=== PATIENT | female | born 1965 | race Caucasian/White ===

== ENCOUNTER 2019-12-31 15:42 | Inpatient (IN) | payer OTHER ==
[~2019-12-31] VITALS: Ht 170.2 cm; Wt 119.7 kg
--- NOTE | 2019-12-31 16:04 | Emergency Room Report ---
History of Present Illness General Chief Complaint: Dyspnea/Respdistress Source: Patient Present Illness HPI Is a 54-year-old female presents after increased difficulty with breathing. Acute onset of symptoms. Patient had previously been healthy. She states she ate a chicken sandwich immediately prior to onset of symptoms. Denies any choking. Had prior history of cigarette smoking but is not currently a smoker. Denies any prior history of lung or cardiac disease. Denies any skin rash or itching. 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: No Patient History Past Medical History: see triage record Now: No Reviewed Nursing Documentation: PMH: Agreed; PSxH: Agreed Review of Systems All Other Systems: negative except mentioned in HPI Physical Exam Vital Signs Date Time Temp Pulse Resp B/P (MAP) Pulse Ox O2 Delivery O2 Flow Rate FiO2 12/31/19 15:49 98.8 114 19 110/69 (83) 75 Room Air Sp02 EP Interpretation: reviewed, normal General Appearance: normal inspection, alert, GCS 15, Chronically Ill Head: atraumatic ENT: normal ENT inspection, hearing grossly normal, normal voice Neck: normal inspection, full range of motion, supple, no bony tend Respiratory: normal inspection, lungs clear, normal breath sounds, no respiratory distress, no retraction, no wheezing Cardiovascular #1: regular rate, rhythm, no edema Gastrointestinal: normal inspection, normal bowel sounds, non tender, soft, no guarding, no hernia Genitourinary: no CVA tenderness Musculoskeletal: normal inspection, back normal, normal range of motion Neurologic: alert, responsive, speech normal, normal inspection Psychiatric: normal inspection, judgement/insight normal, mood/affect normal Medical Decision Making Diagnostic Impression: Primary Impression: Pneumonia Additional Impression: Suspected 2019 novel coronavirus infection ER Course Patient presented for shortness of breath. Differential diagnosis include was not low not limited to allergic reaction, aspiration pneumonia, coronavirus infection, Pulmonary embolism. Patient was noted to be initially hypoxic and was started on supplemental oxygen. Patient did not have any evidence of skin rash consistent with an allergic reaction. There is no stridor noted. X-ray imaging of the chest read by radiology showed bilateral patchy diffuse infiltrates consistent with possible pneumonia. Given patient's onset of symptoms are some concern for possible aspiration. Patient did not have any persistent cough. 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 Patient was given dexamethasone as well as IV Benadryl with some improvement in oxygenation. Patient was also started on IV antibiotics due to possible pneumonia. Dr. Chan was contacted for inpatient management due to need for inpatient monitoring and treatment. Labs Test 12/31/19 16:11 12/31/19 16:30 12/31/19 17:25 12/31/19 18:26 White Blood Count 11.6 K/UL (4.8-10.8) Red Blood Count 4.38 M/UL (4.20-5.40) Hemoglobin 13.4 G/DL (12.0-16.0) Hematocrit 41.3 % (37.0-47.0) Mean Corpuscular Volume 94 FL (80-99) Mean Corpuscular Hemoglobin 30.6 PG (27.0-31.0) Mean Corpuscular Hemoglobin Concent 32.4 G/DL (32.0-36.0) Red Cell Distribution Width 13.5 % (11.6-14.8) Platelet Count 239 K/UL (150-450) Mean Platelet Volume 8.2 FL (6.5-10.1) Neutrophils (%) (Auto) 73.9 % (45.0-75.0) Lymphocytes (%) (Auto) 20.5 % (20.0-45.0) Monocytes (%) (Auto) 4.5 % (1.0-10.0) Eosinophils (%) (Auto) 0.4 % (0.0-3.0) Basophils (%) (Auto) 0.7 % (0.0-2.0) Activated Partial Thromboplast Time 25 SEC (23-33) Sodium Level 141 MMOL/L (136-145) Potassium Level 4.2 MMOL/L (3.5-5.1) Chloride Level 104 MMOL/L (98-107) Carbon Dioxide Level 25 MMOL/L (21-32) Anion Gap 12 mmol/L (5-15) Blood Urea Nitrogen 25 mg/dL (7-18) Creatinine 1.4 MG/DL (0.55-1.30) Estimat Glomerular Filtration Rate 39.3 mL/min (>60) Glucose Level 153 MG/DL (74-106) Calcium Level 9.6 MG/DL (8.5-10.1) Phosphorus Level 4.2 MG/DL (2.5-4.9) Magnesium Level 2.0 MG/DL (1.8-2.4) Total Bilirubin 0.4 MG/DL (0.2-1.0) Aspartate Amino Transf (AST/SGOT) 27 U/L (15-37) Alanine Aminotransferase (ALT/SGPT) 50 U/L (12-78) Alkaline Phosphatase 75 U/L (46-116) Total Creatine Kinase 211 U/L (26-308) Pro-B-Type Natriuretic Peptide 87 pg/mL (0-125) Total Protein 8.1 G/DL (6.4-8.2) Albumin 4.1 G/DL (3.4-5.0) Globulin 4.0 g/dL Albumin/Globulin Ratio 1.0 (1.0-2.7) Lactic Acid Level 1.30 mmol/L (0.4-2.0) Troponin I 0.000 ng/mL (0.000-0.056) Urine Color Pale yellow Urine Appearance Clear Urine pH 5 (4.5-8.0) Urine Specific [place] 1.020 (1.005-1.035) Urine Protein Negative (NEGATIVE) Urine Glucose (UA) Negative (NEGATIVE) Urine Ketones Negative (NEGATIVE) Urine Blood Negative (NEGATIVE) Urine Nitrite Negative (NEGATIVE) Urine Bilirubin Negative (NEGATIVE) Urine Urobilinogen Normal MG/DL (0.0-1.0) Urine Leukocyte Esterase Negative (NEGATIVE) EKG Diagnostic Results Rate: tachycardiac Rhythm: NSR - 109 ST Segments: other - qtc 469 Last Vital Signs Date Time Temp Pulse Resp B/P (MAP) Pulse Ox O2 Delivery O2 Flow Rate FiO2 12/31/19 15:49 98.8 114 19 110/69 (83) 75 Room Air Status: improved Disposition: ADMITTED INPATIENT Condition: Stable Ron Reza MD Dec 31, 2019 16:04
[2019-12-31] MEDS ORDERED: DiphenhydrAMINE 50mg/ml Inj IVP ONE (16:15)
[2019-12-31 16:30] VITALS: BP 117/71
[2019-12-31 16:48] LABS: ANION GAP 12 mmol/L (5-15); BLOOD UREA NITROGEN 25 mg/dL (7-18); CALCIUM 9.6 MG/DL (8.5-10.1); CARBON DIOXIDE 25 MMOL/L (21-32); CHLORIDE 104 MMOL/L (98-107); CREATININE 1.4 MG/DL (0.55-1.30); POTASSIUM 4.2 MMOL/L (3.5-5.1); SODIUM 141 MMOL/L (136-145)
[2019-12-31 16:55] LABS: BASOPHILS % (AUTO) 0.7 % (0.0-2.0); EOSINOPHILS % (AUTO) 0.4 % (0.0-3.0); HEMATOCRIT 41.3 % (37.0-47.0); HEMOGLOBIN 13.4 G/DL (12.0-16.0); LYMPHOCYTES % (AUTO) 20.5 % (20.0-45.0); MEAN CORPUSCULAR VOLUME 94 FL (80-99); MONOCYTES % (AUTO) 4.5 % (1.0-10.0); NEUTROPHILS % (AUTO) 73.9 % (45.0-75.0); PLATELET COUNT 239 K/UL (150-450); RED BLOOD COUNT 4.38 M/UL (4.20-5.40); RED CELL DISTRIBUTION WIDTH 13.5 % (11.6-14.8); WHITE BLOOD COUNT 11.6 K/UL (4.8-10.8)
[2019-12-31 17:03] LABS: ALANINE AMINOTRANSFERASE 50 U/L (12-78); ALBUMIN 4.1 G/DL (3.4-5.0); ALKALINE PHOSPHATASE 75 U/L (46-116); ASPARTATE AMINO TRANSFERASE 27 U/L (15-37); BILIRUBIN,TOTAL 0.4 MG/DL (0.2-1.0); CREATINE KINASE 211 U/L (26-308); PHOSPHORUS 4.2 MG/DL (2.5-4.9)
--- NOTE | 2019-12-31 17:30 | Diagnostic Imaging Report ---
Indication: Cough Technique: XRAY Chest 1v Comparison: None Findings: Heart size and mediastinal contours are within normal limits for AP technique. There are hazy bibasilar airspace opacities most concerning for multifocal pneumonia given history of cough. No pleural effusion or pneumothorax. There are degenerative changes of the spine. No acute osseous abnormality. Impression: Hazy bibasilar airspace opacities. Possibility of multifocal pneumonia (including atypical/viral pneumonia) not excluded given history of cough. Correlation with clinical findings and follow-up recommended.
[2019-12-31] MEDS ORDERED: cefTRIAXone 1 GM in NS 55 ML IVPB ONE (18:30)
[2019-12-31 19:00] VITALS: BP 111/75
--- NOTE | 2019-12-31 19:19 | Consultation ---
Consult Note Consult Note I am asked to evaluate the patient at the request of for elevated serum creatinine. Patient seen in emergency room. Room #7. Discussed with RN. Rapid COVID test pending. UA pending. This a 54-year-old female presents after increased difficulty with breathing. Acute onset of symptoms. Patient had previously been healthy. She states she ate a chicken sandwich immediately prior to onset of symptoms. Denies any choking. Had prior history of cigarette smoking but is not currently a smoker. Denies any prior history of lung or cardiac disease. Denies any skin rash or itching. Patient is a employee [employer]. 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 HEAD AND NECK: Atraumatic and normocephalic. CHEST: Diffuse bronchial breathing sounds. HEART: S1 and S2. Regular rate and rhythm. ABDOMEN: Soft. No organomegaly. MUSCULOSKELETAL: No gross lateralized motor deficit. NEUROLOGIC: The patient is awake, alert, and oriented x3. LABORATORY DATA: Labs dated 12/31/2019 shows WBC of 11.6, hemoglobin of 13.4, glucose 153, creatinine 1.4. IMAGING: Chest x-ray dated 12/31/2019 positive for opacities in both lungs. Labs reviewed serum creatinine 1.4 Patient interviewed and examined . Assessment/Plan Renal impression: Elevated serum creatinine to 1.4 most likely dehydration Possible Pneumonia / Sepsis Hydrate Monitor renal parameters Antibiotics, Continue per ID Monitor inflammatory markers Austin Perry MD Dec 31, 2019 19:19
[2019-12-31 19:27] LABS: APPEARANCE,URINE CLEAR; BILIRUBIN, URINE NEGATIVE (NEGATIVE); COLOR,URINE PALE YELLOW; GLUCOSE, URINE (UA) NEGATIVE (NEGATIVE); KETONES,URINE NEGATIVE (NEGATIVE); LEUKOCYTE ESTERASE ,URINE NEGATIVE (NEGATIVE); NITRITE,URINE NEGATIVE (NEGATIVE); PH,URINE 5 (4.5-8.0); PROTEIN,URINE NEGATIVE (NEGATIVE); UROBILINOGEN,URINE NORMAL MG/DL (0.0-1.0)
[2019-12-31] MEDS ORDERED: ALBUTEROL2.5 MG/3 M INH (20:37)
--- NOTE | 2019-12-31 22:42 | Cardiology Progress Note ---
Assessment/Plan Assessment/Plan The patient is seen and examined, full consult note is dictated. Objective Last 24 Hour Vital Signs Date Time Temp Pulse Resp B/P (MAP) Pulse Ox O2 Delivery O2 Flow Rate FiO2 12/31/19 21:00 98.8 98 16 118/78 99 Room Air 4.0 99 12/31/19 19:00 98.8 99 18 111/75 99 Room Air 12/31/19 16:30 101 16 Room Air 99 12/31/19 16:30 98.8 101 16 117/71 100 Nasal Cannula 4.0 12/31/19 15:49 98.8 114 19 110/69 (83) 75 Room Air Laboratory Tests Test 12/31/19 16:11 12/31/19 16:30 12/31/19 17:25 12/31/19 18:26 White Blood Count 11.6 K/UL (4.8-10.8) H Red Blood Count 4.38 M/UL (4.20-5.40) Hemoglobin 13.4 G/DL (12.0-16.0) Hematocrit 41.3 % (37.0-47.0) Mean Corpuscular Volume 94 FL (80-99) Mean Corpuscular Hemoglobin 30.6 PG (27.0-31.0) Mean Corpuscular Hemoglobin Concent 32.4 G/DL (32.0-36.0) Red Cell Distribution Width 13.5 % (11.6-14.8) Platelet Count 239 K/UL (150-450) Mean Platelet Volume 8.2 FL (6.5-10.1) Neutrophils (%) (Auto) 73.9 % (45.0-75.0) Lymphocytes (%) (Auto) 20.5 % (20.0-45.0) Monocytes (%) (Auto) 4.5 % (1.0-10.0) Eosinophils (%) (Auto) 0.4 % (0.0-3.0) Basophils (%) (Auto) 0.7 % (0.0-2.0) Activated Partial Thromboplast Time 25 SEC (23-33) Sodium Level 141 MMOL/L (136-145) Potassium Level 4.2 MMOL/L (3.5-5.1) Chloride Level 104 MMOL/L (98-107) Carbon Dioxide Level 25 MMOL/L (21-32) Anion Gap 12 mmol/L (5-15) Blood Urea Nitrogen 25 mg/dL (7-18) H Creatinine 1.4 MG/DL (0.55-1.30) H Estimat Glomerular Filtration Rate 39.3 mL/min (>60) Glucose Level 153 MG/DL (74-106) H Calcium Level 9.6 MG/DL (8.5-10.1) Phosphorus Level 4.2 MG/DL (2.5-4.9) Magnesium Level 2.0 MG/DL (1.8-2.4) Total Bilirubin 0.4 MG/DL (0.2-1.0) Aspartate Amino Transf (AST/SGOT) 27 U/L (15-37) Alanine Aminotransferase (ALT/SGPT) 50 U/L (12-78) Alkaline Phosphatase 75 U/L (46-116) Total Creatine Kinase 211 U/L (26-308) Pro-B-Type Natriuretic Peptide 87 pg/mL (0-125) Total Protein 8.1 G/DL (6.4-8.2) Albumin 4.1 G/DL (3.4-5.0) Globulin 4.0 g/dL Albumin/Globulin Ratio 1.0 (1.0-2.7) Lactic Acid Level 1.30 mmol/L (0.4-2.0) Troponin I 0.000 ng/mL (0.000-0.056) Urine Color Pale yellow Urine Appearance Clear Urine pH 5 (4.5-8.0) Urine Specific [place] 1.020 (1.005-1.035) Urine Protein Negative (NEGATIVE) Urine Glucose (UA) Negative (NEGATIVE) Urine Ketones Negative (NEGATIVE) Urine Blood Negative (NEGATIVE) Urine Nitrite Negative (NEGATIVE) Urine Bilirubin Negative (NEGATIVE) Urine Urobilinogen Normal MG/DL (0.0-1.0) Urine Leukocyte Esterase Negative (NEGATIVE) Genaro Barrett MD Dec 31, 2019 22:42
[2020-01-01] VITALS: BP 148/86
[2020-01-01] MEDS ORDERED: Albuterol 90mcg Inhaler 8gm INH PRN
[2020-01-01] MEDS ORDERED: Azithromycin 500 MG in D5W 275 ML IV SCH (02:00)
[2020-01-01] MEDS: Zolpidem 5mg tab ORAL PRN ×2 (02:39→21:39)
[2020-01-01 04:00] VITALS: BP 139/82
--- NOTE | 2020-01-01 06:30 | Consultation ---
DATE OF CONSULTATION: 12/31/2019 CARDIOLOGY CONSULTATION CONSULTING PHYSICIAN: Genaro Barrett MD. REFERRING PHYSICIAN: Radha Chan MD. REASON FOR CONSULTATION: Management of dyspnea. HISTORY OF PRESENT ILLNESS: Patient is a very unfortunate 54-year-old lady who presents to the hospital with shortness of breath, which happened after she ate chicken sandwich. The patient stayed in the usual state of health until this happened. The patient denies any complaints of rash or hives or wheezing. At the time of arrival to the hospital, she denied any chest pain or shortness of breath. Initial vitals revealed blood pressure of 110/69 with a heart rate of 114. She was afebrile. She claims that she had not been contacted with a patient with COVID-19 symptoms. PAST MEDICAL HISTORY: None. PAST SURGICAL HISTORY: None. ALLERGIES: No known drug allergies. LIST OF MEDICATION: Albuterol inhaler every 4 hours p.r.n. shortness of breath. REVIEW OF SYSTEMS: HEENT: Denies any headache, diplopia, or blurred vision. CONSTITUTIONAL: Denies any fever, chills, night sweats, or weight loss. CARDIOVASCULAR: Denies any chest pain. Positive shortness of breath. Denies any PND, orthopnea, or leg swelling. PULMONARY: Positive for shortness of breath, but no wheezing or hemoptysis. GASTROINTESTINAL: Denies any nausea, vomiting, diarrhea, constipation, abdominal pain, or GI bleed. GENITOURINARY: Denies any hematuria, dysuria, or incontinence. NEUROLOGIC: Denies any motor dysfunction, sensory deficit, or altered speech. HABITS: Denies any tobacco, alcohol, or illicit drug use. FAMILY HISTORY: No premature coronary artery disease in first-degree relatives. PHYSICAL EXAMINATION: VITAL SIGNS: Blood pressure is 110/69, pulse of 114, respirations 19, temperature 98.8 degrees Fahrenheit, O2 saturation 75% on room air. GENERAL: The patient is a very unfortunate 54-year-old lady who appeared to be chronically ill, in no apparent respiratory distress. HEENT: Atraumatic and normocephalic. Anicteric. Pupils are equal, round, and reactive to light and accommodation. Extraocular muscles intact. ABDOMEN: Soft, nontender, nondistended. No hepatosplenomegaly. Positive bowel sounds. EXTREMITIES: No evidence of edema, clubbing, or cyanosis. LABORATORY FINDINGS: WBC was 11.6, hemoglobin 13.4, hematocrit of 41.3, platelet count of 239. Sodium was 141, potassium is 4.2, chloride 104, bicarbonate 25, BUN of 25, creatinine 1.4, glucose is 9.6, magnesium 2.0. ProBNP is 87. Troponin I is 0. Lactic acid is 1.3. Chest x-ray showed hazy bibasilar airspace opacities, possibility of multifocal pneumonia. ASSESSMENT AND PLAN: Patient is a very unfortunate 54-year-old female, seen in Cardiology consultation. 1. Shortness of breath. This is most likely due to multilobar pneumonia. Normal brain natriuretic peptide essentially ruled out acute congestive heart failure. The patient requires to be on IV fluid. IV antibiotic at the recommendation of Infectious Disease. 2. Acute kidney injury. Fluid challenge is recommended. 3. Leukocytosis. I would like to thank, Dr. Chan, for allowing me to participate in the care of this patient. Genaro Barrett M.D. DR: JOSUÉ JOB#: [id number] CC:
[2020-01-01 07:23] LABS: HEMOGLOBIN 12.7 G/DL (12.0-16.0); MEAN CORPUSCULAR VOLUME 96 FL (80-99); PLATELET COUNT 183 K/UL (150-450); RED BLOOD COUNT 4.16 M/UL (4.20-5.40); RED CELL DISTRIBUTION WIDTH 13.1 % (11.6-14.8); WHITE BLOOD COUNT 21.9 K/UL (4.8-10.8)
[2020-01-01 08:00] VITALS: BP 135/70
[2020-01-01 08:39] LABS: ALANINE AMINOTRANSFERASE 42 U/L (12-78); ALBUMIN 3.5 G/DL (3.4-5.0); ALBUMIN/GLOBULIN RATIO 0.9 (1.0-2.7); ALKALINE PHOSPHATASE 63 U/L (46-116); ANION GAP 9 mmol/L (5-15); ASPARTATE AMINO TRANSFERASE 18 U/L (15-37); BILIRUBIN,TOTAL 0.6 MG/DL (0.2-1.0); BLOOD UREA NITROGEN 16 mg/dL (7-18); CARBON DIOXIDE 26 MMOL/L (21-32); CHLORIDE 103 MMOL/L (98-107); CHOLESTEROL 158 MG/DL (< 200); HDL CHOLESTEROL 61 MG/DL (40-60); POTASSIUM 4.1 MMOL/L (3.5-5.1); SODIUM 138 MMOL/L (136-145); TRIGLYCERIDES 43 MG/DL (30-150)
--- NOTE | 2020-01-01 08:47 | History & Physical ---
History and Physical History & Physicial seen and examined. Dictation completed on 840 hours Radha Chan MD Jan 01, 2020 08:47
--- NOTE | 2020-01-01 08:48 | General Progress Note ---
Assessment/Plan Assessment/Plan: Full Dictatino in progress 1- Sepsis 2- PNA [id number] are consulted Subjective Allergies: Coded Allergies: No Known Allergies (Unverified , 12/31/19) Objective Last 24 Hour Vital Signs Date Time Temp Pulse Resp B/P (MAP) Pulse Ox O2 Delivery O2 Flow Rate FiO2 01/01/20 04:00 87 01/01/20 04:00 Nasal Cannula 4.0 01/01/20 04:00 98.7 89 20 139/82 (101) 97 01/01/20 01:28 94 01/01/20 00:00 Nasal Cannula 4.0 01/01/20 00:00 99.0 103 20 148/86 (106) 96 01/01/20 00:00 94 12/31/19 21:31 Nasal Cannula 4.0 12/31/19 21:00 98.8 98 16 118/78 99 Room Air 4.0 99 12/31/19 19:00 98.8 99 18 111/75 99 Room Air 12/31/19 16:30 101 16 Room Air 99 12/31/19 16:30 98.8 101 16 117/71 100 Nasal Cannula 4.0 12/31/19 15:49 98.8 114 19 110/69 (83) 75 Room Air Intake and Output 12/31/19 01/01/20 19:00 07:00 Intake Total 0 ml 755 ml Balance 0 ml 755 ml Intake Oral 0 ml 480 ml IV Total 275 ml # Voids 2 # Bowel Movements 4 Laboratory Tests 12/31/19 16:11: White Blood Count 11.6H, Red Blood Count 4.38, Hemoglobin 13.4, Hematocrit 41.3 , Mean Corpuscular Volume 94, Mean Corpuscular Hemoglobin 30.6, Mean Corpuscular Hemoglobin Concent 32.4, Red Cell Distribution Width 13.5, Platelet Count 239, Mean Platelet Volume 8.2, Neutrophils (%) (Auto) 73.9, Lymphocytes (% ) (Auto) 20.5, Monocytes (%) (Auto) 4.5, Eosinophils (%) (Auto) 0.4, Basophils ( %) (Auto) 0.7, Activated Partial Thromboplast Time 25, Sodium Level 141, Potassium Level 4.2, Chloride Level 104, Carbon Dioxide Level 25, Anion Gap 12, Blood Urea Nitrogen 25H, Creatinine 1.4H, Estimat Glomerular Filtration Rate 39.3, Glucose Level 153H, Calcium Level 9.6, Phosphorus Level 4.2, Magnesium Level 2.0, Total Bilirubin 0.4, Aspartate Amino Transf (AST/SGOT) 27, Alanine Aminotransferase (ALT/SGPT) 50, Alkaline Phosphatase 75, Total Creatine Kinase 211, Pro-B-Type Natriuretic Peptide 87, Total Protein 8.1, Albumin 4.1, Globulin 4.0, Albumin/Globulin Ratio 1.0 12/31/19 16:30: Lactic Acid Level 1.30 12/31/19 17:00: Fibrinogen 385, D-Dimer 1.14H 12/31/19 17:25: Troponin I 0.000 12/31/19 18:26: Urine Color Pale yellow, Urine Appearance Clear, Urine pH 5, Urine Specific [place] 1.020, Urine Protein Negative, Urine Glucose (UA) Negative, Urine Ketones Negative, Urine Blood Negative, Urine Nitrite Negative, Urine Bilirubin Negative, Urine Urobilinogen Normal, Urine Leukocyte Esterase Negative 01/01/20 06:00: White Blood Count 21.9#H, Red Blood Count 4.16L, Hemoglobin 12.7, Hematocrit 40.0, Mean Corpuscular Volume 96, Mean Corpuscular Hemoglobin 30.6, Mean Corpuscular Hemoglobin Concent 31.9L, Red Cell Distribution Width 13.1, Platelet Count 183, Mean Platelet Volume 8.2, Neutrophils (%) (Auto) , Lymphocytes (%) (Auto) , Monocytes (%) (Auto) , Eosinophils (%) (Auto) , Basophils (%) (Auto) , Neutrophils % (Manual) [Pending], Lymphocytes % (Manual) [Pending], Platelet Estimate [Pending], Platelet Morphology [Pending], Sodium Level [Pending], Potassium Level [Pending], Chloride Level [Pending], Carbon Dioxide Level [Pending], Blood Urea Nitrogen [Pending], Creatinine [Pending], Estimat Glomerular Filtration Rate [Pending], Glucose Level [Pending], Uric Acid [Pending], Calcium Level [Pending], Phosphorus Level [Pending], Magnesium Level [Pending], Total Bilirubin [Pending], Aspartate Amino Transf (AST/SGOT) [ Pending], Alanine Aminotransferase (ALT/SGPT) [Pending], Alkaline Phosphatase [ Pending], C-Reactive Protein, Quantitative [Pending], Pro-B-Type Natriuretic Peptide [Pending], Total Protein [Pending], Albumin [Pending], Globulin [Pending ], Triglycerides Level [Pending], Cholesterol Level [Pending], LDL Cholesterol [ Pending], HDL Cholesterol [Pending], Cholesterol/HDL Ratio [Pending], Thyroid Stimulating Hormone (TSH) [Pending] Height (Feet): 5 Height (Inches): 7.00 Weight (Pounds): 263 Radha Chan MD Jan 01, 2020 08:48
[2020-01-01] MEDS: Enoxaparin 40mg Inj SUBQ SCH ×2 (08:49→20:22)
[2020-01-01] MEDS ORDERED: D5W 275ml ONE (09:23)
[2020-01-01] MEDS ORDERED: Tubing IV Secondary IV ONE (09:23)
[2020-01-01] MEDS ORDERED: NS 275ml ONE (09:23)
[2020-01-01] MEDS ORDERED: Vancomycin 2gm/D5W 550ml IVPB SCH ×4 (11:00→23:00)
[2020-01-01 12:00] VITALS: BP 140/79
--- NOTE | 2020-01-01 12:22 | Nephrology Progress Note ---
Assessment/Plan Problem List: (1) CANDICE (acute kidney injury) (2) Pneumonia Plan Serum creatinine is now normalized with hydration. White blood cell counts vipul, continue antibiotics per ID. Avoid nephrotoxic's, monitor renal parameters and electrolytes. Subjective ROS Limited/Unobtainable: No Constitutional: Reports: malaise Objective Objective Last 24 Hour Vital Signs Date Time Temp Pulse Resp B/P (MAP) Pulse Ox O2 Delivery O2 Flow Rate FiO2 01/01/20 09:00 Room Air 01/01/20 08:00 103 01/01/20 08:00 98.1 91 20 135/70 (91) 99 01/01/20 04:00 87 01/01/20 04:00 Nasal Cannula 4.0 01/01/20 04:00 98.7 89 20 139/82 (101) 97 01/01/20 01:28 94 01/01/20 00:00 Nasal Cannula 4.0 01/01/20 00:00 99.0 103 20 148/86 (106) 96 01/01/20 00:00 94 12/31/19 21:31 Nasal Cannula 4.0 12/31/19 21:00 98.8 98 16 118/78 99 Room Air 4.0 99 12/31/19 19:00 98.8 99 18 111/75 99 Room Air 12/31/19 16:30 101 16 Room Air 99 12/31/19 16:30 98.8 101 16 117/71 100 Nasal Cannula 4.0 12/31/19 15:49 98.8 114 19 110/69 (83) 75 Room Air Intake and Output 12/31/19 01/01/20 19:00 07:00 Intake Total 0 ml 755 ml Balance 0 ml 755 ml Intake Oral 0 ml 480 ml IV Total 275 ml # Voids 2 # Bowel Movements 4 Current Medications Medications (Trade) Dose Ordered Sig/Jorge Alberto Route PRN Reason Start Time Stop Time Status Last Admin Dose Admin Acetaminophen (Tylenol) 650 mg Q4H PRN ORAL Mild Pain (Pain Scale 1-3) 01/01/20 00:00 01/31/20 00:00 Acetaminophen/ Hydrocodone Bitart (Gordon 5/325) 1 tab Q4H PRN ORAL Moderate Pain (Pain Scale 4-6) 01/01/20 00:00 01/08/20 00:00 Albuterol Sulfate (Proventil MDI) 2 puff Q4H PRN INH Shortness of Breath 01/01/20 00:00 03/31/20 00:00 Azithromycin 500 mg/Dextrose 275 ml @ 275 mls/hr Q24HRS IV 01/01/20 02:00 01/07/20 02:59 01/01/20 02:06 Ceftriaxone Sodium 2 gm/ Dextrose 55 ml @ 110 mls/hr Q24H IVPB 01/01/20 18:00 01/08/20 17:59 Enoxaparin Sodium (Lovenox) 40 mg EVERY 12 HOURS SUBQ 01/01/20 09:00 03/31/20 08:59 01/01/20 08:49 Pantoprazole (Protonix) 40 mg DAILY ORAL 01/01/20 09:00 01/31/20 08:59 01/01/20 08:49 Zolpidem Tartrate (Ambien) 5 mg HSPRN PRN ORAL Insomnia 01/01/20 00:00 01/08/20 00:00 01/01/20 02:39 Laboratory Tests 12/31/19 16:11: White Blood Count 11.6H, Red Blood Count 4.38, Hemoglobin 13.4, Hematocrit 41.3 , Mean Corpuscular Volume 94, Mean Corpuscular Hemoglobin 30.6, Mean Corpuscular Hemoglobin Concent 32.4, Red Cell Distribution Width 13.5, Platelet Count 239, Mean Platelet Volume 8.2, Neutrophils (%) (Auto) 73.9, Lymphocytes (% ) (Auto) 20.5, Monocytes (%) (Auto) 4.5, Eosinophils (%) (Auto) 0.4, Basophils ( %) (Auto) 0.7, Activated Partial Thromboplast Time 25, Sodium Level 141, Potassium Level 4.2, Chloride Level 104, Carbon Dioxide Level 25, Anion Gap 12, Blood Urea Nitrogen 25H, Creatinine 1.4H, Estimat Glomerular Filtration Rate 39.3, Glucose Level 153H, Calcium Level 9.6, Phosphorus Level 4.2, Magnesium Level 2.0, Total Bilirubin 0.4, Aspartate Amino Transf (AST/SGOT) 27, Alanine Aminotransferase (ALT/SGPT) 50, Alkaline Phosphatase 75, Total Creatine Kinase 211, Pro-B-Type Natriuretic Peptide 87, Total Protein 8.1, Albumin 4.1, Globulin 4.0, Albumin/Globulin Ratio 1.0 12/31/19 16:30: Lactic Acid Level 1.30 12/31/19 17:00: Fibrinogen 385, D-Dimer 1.14H 12/31/19 17:25: Troponin I 0.000 12/31/19 18:26: Urine Color Pale yellow, Urine Appearance Clear, Urine pH 5, Urine Specific [place] 1.020, Urine Protein Negative, Urine Glucose (UA) Negative, Urine Ketones Negative, Urine Blood Negative, Urine Nitrite Negative, Urine Bilirubin Negative, Urine Urobilinogen Normal, Urine Leukocyte Esterase Negative 01/01/20 06:00: White Blood Count 21.9#H, Red Blood Count 4.16L, Hemoglobin 12.7, Hematocrit 40.0, Mean Corpuscular Volume 96, Mean Corpuscular Hemoglobin 30.6, Mean Corpuscular Hemoglobin Concent 31.9L, Red Cell Distribution Width 13.1, Platelet Count 183, Mean Platelet Volume 8.2, Neutrophils (%) (Auto) , Lymphocytes (%) (Auto) , Monocytes (%) (Auto) , Eosinophils (%) (Auto) , Basophils (%) (Auto) , Neutrophils % (Manual) [Pending], Lymphocytes % (Manual) [Pending], Platelet Estimate [Pending], Platelet Morphology [Pending], Sodium Level 138, Potassium Level 4.1, Chloride Level 103, Carbon Dioxide Level 26, Anion Gap 9, Blood Urea Nitrogen 16, Creatinine 1.0, Estimat Glomerular Filtration Rate 58.0, Glucose Level 126H, Uric Acid 7.1, Calcium Level 9.0, Phosphorus Level 3.0, Magnesium Level 2.2, Total Bilirubin 0.6, Aspartate Amino Transf (AST/SGOT) 18, Alanine Aminotransferase (ALT/SGPT) 42, Alkaline Phosphatase 63, C-Reactive Protein, Quantitative 10.2H, Pro-B-Type Natriuretic Peptide 151H, Total Protein 7.3, Albumin 3.5, Globulin 3.8, Albumin/Globulin Ratio 0.9L, Triglycerides Level 43, Cholesterol Level 158, LDL Cholesterol 85, HDL Cholesterol 61H, Cholesterol/HDL Ratio 2.6L, Thyroid Stimulating Hormone ( TSH) 0.306L Height (Feet): 5 Height (Inches): 7.00 Weight (Pounds): 263 Cardiovascular: tachycardia Respiratory/Chest: decreased breath sounds Abdomen: soft Fouladian,Austin MD Jan 01, 2020 12:22
--- NOTE | 2020-01-01 13:00 | History and Physical Report ---
DATE OF ADMISSION: 12/31/2019 SOURCE OF INFORMATION: Patient and EMR. HISTORY OF PRESENT ILLNESS: The patient is a 54-year-old female who presented with shortness of breath for the last three to five days. The patient reported that this started all of a sudden. Denies any nausea, vomitus, diarrhea, or constipation. Denies any fever or chills. PAST MEDICAL AND SURGICAL HISTORY: Asthma, otherwise unremarkable. MEDICATIONS: Current hospital medications including, but not limited to breathing treatment, ceftriaxone, Lovenox. ALLERGIES: NKDA. FAMILY HISTORY: Reviewed and noncontributory. SOCIAL HISTORY: The patient lives at home. The patient denies history of illicit drug abuse, smoking, or alcohol abuse. The patient has children and grandchildren. REVIEW OF SYSTEMS: All 12 elements of review of systems reviewed. PHYSICAL EXAMINATION: VITAL SIGNS: Blood pressure 110/80, temperature 98.2, pulse oximetry 98% on 2 liters of oxygen, pulse rate 100, and respiratory rate 25. HEAD AND NECK: Atraumatic and normocephalic. CHEST: Diffuse bronchial breathing sounds. HEART: S1 and S2. Regular rate and rhythm. ABDOMEN: Soft. No organomegaly. MUSCULOSKELETAL: No gross lateralized motor deficit. NEUROLOGIC: The patient is awake, alert, and oriented x3. LABORATORY DATA: Labs dated 12/31/2019 shows WBC of 11.6, hemoglobin of 13.4, glucose 153, creatinine 1.4. IMAGING: Chest x-ray dated 12/31/2019 positive for opacities in both lungs. ASSESSMENT: 1. Sepsis secondary to community-acquired pneumonia. 2. Asthma/COPD. 3. Renal failure, age indeterminate. 4. Abnormal blood sugar. 5. GI and DVT prophylaxes. PLAN OF CARE: We will continue and resume the empiric antibiotic treatment. Agree to admit to telemetry. Pulmonary, Cardiology and Nephrology are consulted. COMMENTS: The time of this dictation does not reflect the actual time of encounter. Radha Chan M.D. DR: RANDALL JOB#: [id number] CC:
--- NOTE | 2020-01-01 13:31 | Infectious Diseases Prog Note ---
Assessment/Plan Problems: (1) Pneumonia Assessment & Plan: with bilateral multifocal infiltration, suspect COV ID 19 infection continue current antibiotics with isolation pending COV ID 19 confirmation tests (2) Hypoxia Assessment & Plan: suspect due to the above continue oxygen supplement and supportive care , she will be candidate for Remedisvir if confirmed positive for COV ID 19 infection (3) Suspected 2019 novel coronavirus infection Assessment & Plan: we will send COV ID 19 rapid ID test now, keep patient in enhance droplet isolation (4) CANDICE (acute kidney injury) Assessment & Plan: suspect dehydration continue IV fluid avoid nephrotoxic's Subjective Allergies: Coded Allergies: No Known Allergies (Unverified , 12/31/19) Objective Vital Signs Last 24 Hour Vital Signs Date Time Temp Pulse Resp B/P (MAP) Pulse Ox O2 Delivery O2 Flow Rate FiO2 01/01/20 13:13 92 01/01/20 12:00 98.4 92 20 140/79 (99) 99 01/01/20 09:00 Room Air 01/01/20 08:00 103 01/01/20 08:00 98.1 91 20 135/70 (91) 99 01/01/20 04:00 87 01/01/20 04:00 Nasal Cannula 4.0 01/01/20 04:00 98.7 89 20 139/82 (101) 97 01/01/20 01:28 94 01/01/20 00:00 Nasal Cannula 4.0 01/01/20 00:00 99.0 103 20 148/86 (106) 96 01/01/20 00:00 94 12/31/19 21:31 Nasal Cannula 4.0 12/31/19 21:00 98.8 98 16 118/78 99 Room Air 4.0 99 12/31/19 19:00 98.8 99 18 111/75 99 Room Air 12/31/19 16:30 101 16 Room Air 99 12/31/19 16:30 98.8 101 16 117/71 100 Nasal Cannula 4.0 12/31/19 15:49 98.8 114 19 110/69 (83) 75 Room Air Height (Feet): 5 Height (Inches): 7.00 Weight (Pounds): 263 Laboratory Tests Test 12/31/19 16:11 12/31/19 16:30 12/31/19 17:00 12/31/19 17:25 White Blood Count 11.6 K/UL (4.8-10.8) H Red Blood Count 4.38 M/UL (4.20-5.40) Hemoglobin 13.4 G/DL (12.0-16.0) Hematocrit 41.3 % (37.0-47.0) Mean Corpuscular Volume 94 FL (80-99) Mean Corpuscular Hemoglobin 30.6 PG (27.0-31.0) Mean Corpuscular Hemoglobin Concent 32.4 G/DL (32.0-36.0) Red Cell Distribution Width 13.5 % (11.6-14.8) Platelet Count 239 K/UL (150-450) Mean Platelet Volume 8.2 FL (6.5-10.1) Neutrophils (%) (Auto) 73.9 % (45.0-75.0) Lymphocytes (%) (Auto) 20.5 % (20.0-45.0) Monocytes (%) (Auto) 4.5 % (1.0-10.0) Eosinophils (%) (Auto) 0.4 % (0.0-3.0) Basophils (%) (Auto) 0.7 % (0.0-2.0) Activated Partial Thromboplast Time 25 SEC (23-33) Sodium Level 141 MMOL/L (136-145) Potassium Level 4.2 MMOL/L (3.5-5.1) Chloride Level 104 MMOL/L (98-107) Carbon Dioxide Level 25 MMOL/L (21-32) Anion Gap 12 mmol/L (5-15) Blood Urea Nitrogen 25 mg/dL (7-18) H Creatinine 1.4 MG/DL (0.55-1.30) H Estimat Glomerular Filtration Rate 39.3 mL/min (>60) Glucose Level 153 MG/DL (74-106) H Calcium Level 9.6 MG/DL (8.5-10.1) Phosphorus Level 4.2 MG/DL (2.5-4.9) Magnesium Level 2.0 MG/DL (1.8-2.4) Total Bilirubin 0.4 MG/DL (0.2-1.0) Aspartate Amino Transf (AST/SGOT) 27 U/L (15-37) Alanine Aminotransferase (ALT/SGPT) 50 U/L (12-78) Alkaline Phosphatase 75 U/L (46-116) Total Creatine Kinase 211 U/L (26-308) Pro-B-Type Natriuretic Peptide 87 pg/mL (0-125) Total Protein 8.1 G/DL (6.4-8.2) Albumin 4.1 G/DL (3.4-5.0) Globulin 4.0 g/dL Albumin/Globulin Ratio 1.0 (1.0-2.7) Lactic Acid Level 1.30 mmol/L (0.4-2.0) Fibrinogen 385 mg/dL (200-400) D-Dimer 1.14 mg/L FEU (0.00-0.49) H Troponin I 0.000 ng/mL (0.000-0.056) Test 12/31/19 18:26 01/01/20 06:00 Urine Color Pale yellow Urine Appearance Clear Urine pH 5 (4.5-8.0) Urine Specific [place] 1.020 (1.005-1.035) Urine Protein Negative (NEGATIVE) Urine Glucose (UA) Negative (NEGATIVE) Urine Ketones Negative (NEGATIVE) Urine Blood Negative (NEGATIVE) Urine Nitrite Negative (NEGATIVE) Urine Bilirubin Negative (NEGATIVE) Urine Urobilinogen Normal MG/DL (0.0-1.0) Urine Leukocyte Esterase Negative (NEGATIVE) White Blood Count 21.9 K/UL (4.8-10.8) #H Red Blood Count 4.16 M/UL (4.20-5.40) L Hemoglobin 12.7 G/DL (12.0-16.0) Hematocrit 40.0 % (37.0-47.0) Mean Corpuscular Volume 96 FL (80-99) Mean Corpuscular Hemoglobin 30.6 PG (27.0-31.0) Mean Corpuscular Hemoglobin Concent 31.9 G/DL (32.0-36.0) L Red Cell Distribution Width 13.1 % (11.6-14.8) Platelet Count 183 K/UL (150-450) Mean Platelet Volume 8.2 FL (6.5-10.1) Neutrophils (%) (Auto) % (45.0-75.0) Lymphocytes (%) (Auto) % (20.0-45.0) Monocytes (%) (Auto) % (1.0-10.0) Eosinophils (%) (Auto) % (0.0-3.0) Basophils (%) (Auto) % (0.0-2.0) Neutrophils % (Manual) Pending Lymphocytes % (Manual) Pending Platelet Estimate Pending Platelet Morphology Pending Sodium Level 138 MMOL/L (136-145) Potassium Level 4.1 MMOL/L (3.5-5.1) Chloride Level 103 MMOL/L (98-107) Carbon Dioxide Level 26 MMOL/L (21-32) Anion Gap 9 mmol/L (5-15) Blood Urea Nitrogen 16 mg/dL (7-18) Creatinine 1.0 MG/DL (0.55-1.30) Estimat Glomerular Filtration Rate 58.0 mL/min (>60) Glucose Level 126 MG/DL (74-106) H Uric Acid 7.1 MG/DL (2.6-7.2) Calcium Level 9.0 MG/DL (8.5-10.1) Phosphorus Level 3.0 MG/DL (2.5-4.9) Magnesium Level 2.2 MG/DL (1.8-2.4) Total Bilirubin 0.6 MG/DL (0.2-1.0) Aspartate Amino Transf (AST/SGOT) 18 U/L (15-37) Alanine Aminotransferase (ALT/SGPT) 42 U/L (12-78) Alkaline Phosphatase 63 U/L (46-116) C-Reactive Protein, Quantitative 10.2 mg/dL (0.00-0.90) H Pro-B-Type Natriuretic Peptide 151 pg/mL (0-125) H Total Protein 7.3 G/DL (6.4-8.2) Albumin 3.5 G/DL (3.4-5.0) Globulin 3.8 g/dL Albumin/Globulin Ratio 0.9 (1.0-2.7) L Triglycerides Level 43 MG/DL (30-150) Cholesterol Level 158 MG/DL (< 200) LDL Cholesterol 85 mg/dL (<100) HDL Cholesterol 61 MG/DL (40-60) H Cholesterol/HDL Ratio 2.6 (3.3-4.4) L Thyroid Stimulating Hormone (TSH) 0.306 uiU/mL (0.358-3.740) Current Medications Medications (Trade) Dose Ordered Sig/Jorge Alberto Route PRN Reason Start Time Stop Time Status Last Admin Dose Admin Acetaminophen (Tylenol) 650 mg Q4H PRN ORAL Mild Pain (Pain Scale 1-3) 01/01/20 00:00 01/31/20 00:00 Acetaminophen/ Hydrocodone Bitart (Walker 5/325) 1 tab Q4H PRN ORAL Moderate Pain (Pain Scale 4-6) 01/01/20 00:00 01/08/20 00:00 Albuterol Sulfate (Proventil MDI) 2 puff Q4H PRN INH Shortness of Breath 01/01/20 00:00 03/31/20 00:00 Azithromycin 500 mg/Dextrose 275 ml @ 275 mls/hr Q24HRS IV 01/01/20 02:00 01/07/20 02:59 01/01/20 02:06 Ceftriaxone Sodium 2 gm/ Dextrose 55 ml @ 110 mls/hr Q24H IVPB 01/01/20 18:00 01/08/20 17:59 Enoxaparin Sodium (Lovenox) 40 mg EVERY 12 HOURS SUBQ 01/01/20 09:00 03/31/20 08:59 01/01/20 08:49 Pantoprazole (Protonix) 40 mg DAILY ORAL 01/01/20 09:00 01/31/20 08:59 01/01/20 08:49 Zolpidem Tartrate (Ambien) 5 mg HSPRN PRN ORAL Insomnia 01/01/20 00:00 01/08/20 00:00 01/01/20 02:39 Carol Ann Davis M.D. Jan 01, 2020 13:31
--- NOTE | 2020-01-01 14:46 | Consultation ---
Consult Note Consult Note REASON FOR CONSULTATION: Dyspnea HISTORY OF PRESENT ILLNESS: This is a 54-year-old lady who presents to the hospital with shortness of breath, which happened after she ate a chicken sandwich. The patient stayed in the usual state of health until this happened. The patient denies any complaints of rash or hives or wheezing. At the time of arrival to the hospital, she denied any chest pain or shortness of breath. Initial vitals revealed blood pressure of 110/69 with a heart rate of 114. She was afebrile. She claims that she had not been contacted with a patient with COVID-19 symptoms. PAST MEDICAL HISTORY: None. PAST SURGICAL HISTORY: None. ALLERGIES: No known drug allergies. LIST OF MEDICATION: Albuterol inhaler every 4 hours p.r.n. shortness of breath. REVIEW OF SYSTEMS: HEENT: Denies any headache, diplopia, or blurred vision. CONSTITUTIONAL: Denies any fever, chills, night sweats, or weight loss. CARDIOVASCULAR: Denies any chest pain. Positive shortness of breath. Denies any PND, orthopnea, or leg swelling. PULMONARY: Positive for shortness of breath, but no wheezing or hemoptysis. GASTROINTESTINAL: Denies any nausea, vomiting, diarrhea, constipation, abdominal pain, or GI bleed. GENITOURINARY: Denies any hematuria, dysuria, or incontinence. NEUROLOGIC: Denies any motor dysfunction, sensory deficit, or altered speech. HABITS: Denies any tobacco, alcohol, or illicit drug use. FAMILY HISTORY: No premature coronary artery disease in first-degree relatives. PHYSICAL EXAMINATION: VITAL SIGNS: Blood pressure is 110/69, pulse of 114, respirations 19, temperature 98.8 degrees Fahrenheit, O2 saturation 75% on room air. GENERAL: No respiratory distress. HEENT: Atraumatic and normocephalic. Anicteric. Pupils are equal, round, and reactive to light and accommodation. Extraocular muscles intact. ABDOMEN: Soft, nontender, nondistended. No hepatosplenomegaly. Positive bowel sounds. EXTREMITIES: No evidence of edema, clubbing, or cyanosis. LABORATORY FINDINGS: WBC was 11.6, hemoglobin 13.4, hematocrit of 41.3, platelet count of 239. Sodium was 141, potassium is 4.2, chloride 104, bicarbonate 25, BUN of 25, creatinine 1.4, glucose is 9.6, magnesium 2.0. ProBNP is 87. Troponin I is 0. Lactic acid is 1.3. Chest x-ray showed hazy bibasilar airspace opacities. Possibility of multifocal pneumonia ( including atypical/viral pneumonia) not excluded given history of cough. ASSESSMENT AND PLAN: 1. Shortness of breath. This is most likely due to multilobar pneumonia. Normal brain natriuretic peptide essentially ruled out acute congestive heart failure. The patient requires to be on IV fluid. IV antibiotic at the recommendation of Infectious Disease. 2. Acute kidney injury. Fluid challenge is recommended. 3. Leukocytosis. Ross Shukla M.D., MD Jan 01, 2020 14:46
[2020-01-01 16:00] VITALS: BP 145/66
--- NOTE | 2020-01-01 16:00 | Cardiology Progress Note ---
Assessment/Plan Assessment/Plan 1. Shortness of breath, due to multilobar pneumonia. Normal brain natriuretic peptide essentially ruled out acute congestive heart failure. COVID-19 infection is ruled out. 2. DVT prophylaxis. 2. Acute kidney injury, resolved. Subjective Subjective Sinus rhythm at rate of 92. Objective Last 24 Hour Vital Signs Date Time Temp Pulse Resp B/P (MAP) Pulse Ox O2 Delivery O2 Flow Rate FiO2 01/01/20 13:13 92 01/01/20 12:00 98.4 92 20 140/79 (99) 99 01/01/20 09:00 Room Air 01/01/20 08:00 103 01/01/20 08:00 98.1 91 20 135/70 (91) 99 01/01/20 04:00 87 01/01/20 04:00 Nasal Cannula 4.0 01/01/20 04:00 98.7 89 20 139/82 (101) 97 01/01/20 01:28 94 01/01/20 00:00 Nasal Cannula 4.0 01/01/20 00:00 99.0 103 20 148/86 (106) 96 01/01/20 00:00 94 12/31/19 21:31 Nasal Cannula 4.0 12/31/19 21:00 98.8 98 16 118/78 99 Room Air 4.0 99 12/31/19 19:00 98.8 99 18 111/75 99 Room Air 12/31/19 16:30 101 16 Room Air 99 12/31/19 16:30 98.8 101 16 117/71 100 Nasal Cannula 4.0 Intake and Output 12/31/19 01/01/20 19:00 07:00 Intake Total 0 ml 755 ml Balance 0 ml 755 ml Intake Oral 0 ml 480 ml IV Total 275 ml # Voids 2 # Bowel Movements 4 Laboratory Tests Test 12/31/19 16:11 12/31/19 16:30 12/31/19 17:00 12/31/19 17:25 White Blood Count 11.6 K/UL (4.8-10.8) H Red Blood Count 4.38 M/UL (4.20-5.40) Hemoglobin 13.4 G/DL (12.0-16.0) Hematocrit 41.3 % (37.0-47.0) Mean Corpuscular Volume 94 FL (80-99) Mean Corpuscular Hemoglobin 30.6 PG (27.0-31.0) Mean Corpuscular Hemoglobin Concent 32.4 G/DL (32.0-36.0) Red Cell Distribution Width 13.5 % (11.6-14.8) Platelet Count 239 K/UL (150-450) Mean Platelet Volume 8.2 FL (6.5-10.1) Neutrophils (%) (Auto) 73.9 % (45.0-75.0) Lymphocytes (%) (Auto) 20.5 % (20.0-45.0) Monocytes (%) (Auto) 4.5 % (1.0-10.0) Eosinophils (%) (Auto) 0.4 % (0.0-3.0) Basophils (%) (Auto) 0.7 % (0.0-2.0) Activated Partial Thromboplast Time 25 SEC (23-33) Sodium Level 141 MMOL/L (136-145) Potassium Level 4.2 MMOL/L (3.5-5.1) Chloride Level 104 MMOL/L (98-107) Carbon Dioxide Level 25 MMOL/L (21-32) Anion Gap 12 mmol/L (5-15) Blood Urea Nitrogen 25 mg/dL (7-18) H Creatinine 1.4 MG/DL (0.55-1.30) H Estimat Glomerular Filtration Rate 39.3 mL/min (>60) Glucose Level 153 MG/DL (74-106) H Calcium Level 9.6 MG/DL (8.5-10.1) Phosphorus Level 4.2 MG/DL (2.5-4.9) Magnesium Level 2.0 MG/DL (1.8-2.4) Total Bilirubin 0.4 MG/DL (0.2-1.0) Aspartate Amino Transf (AST/SGOT) 27 U/L (15-37) Alanine Aminotransferase (ALT/SGPT) 50 U/L (12-78) Alkaline Phosphatase 75 U/L (46-116) Total Creatine Kinase 211 U/L (26-308) Pro-B-Type Natriuretic Peptide 87 pg/mL (0-125) Total Protein 8.1 G/DL (6.4-8.2) Albumin 4.1 G/DL (3.4-5.0) Globulin 4.0 g/dL Albumin/Globulin Ratio 1.0 (1.0-2.7) Lactic Acid Level 1.30 mmol/L (0.4-2.0) Fibrinogen 385 mg/dL (200-400) D-Dimer 1.14 mg/L FEU (0.00-0.49) H Troponin I 0.000 ng/mL (0.000-0.056) Test 12/31/19 18:26 01/01/20 06:00 01/01/20 14:15 Urine Color Pale yellow Urine Appearance Clear Urine pH 5 (4.5-8.0) Urine Specific [place] 1.020 (1.005-1.035) Urine Protein Negative (NEGATIVE) Urine Glucose (UA) Negative (NEGATIVE) Urine Ketones Negative (NEGATIVE) Urine Blood Negative (NEGATIVE) Urine Nitrite Negative (NEGATIVE) Urine Bilirubin Negative (NEGATIVE) Urine Urobilinogen Normal MG/DL (0.0-1.0) Urine Leukocyte Esterase Negative (NEGATIVE) White Blood Count 21.9 K/UL (4.8-10.8) #H Red Blood Count 4.16 M/UL (4.20-5.40) L Hemoglobin 12.7 G/DL (12.0-16.0) Hematocrit 40.0 % (37.0-47.0) Mean Corpuscular Volume 96 FL (80-99) Mean Corpuscular Hemoglobin 30.6 PG (27.0-31.0) Mean Corpuscular Hemoglobin Concent 31.9 G/DL (32.0-36.0) L Red Cell Distribution Width 13.1 % (11.6-14.8) Platelet Count 183 K/UL (150-450) Mean Platelet Volume 8.2 FL (6.5-10.1) Neutrophils (%) (Auto) % (45.0-75.0) Lymphocytes (%) (Auto) % (20.0-45.0) Monocytes (%) (Auto) % (1.0-10.0) Eosinophils (%) (Auto) % (0.0-3.0) Basophils (%) (Auto) % (0.0-2.0) Differential Total Cells Counted 100 Neutrophils % (Manual) 93 % (45-75) H Lymphocytes % (Manual) 4 % (20-45) L Monocytes % (Manual) 3 % (1-10) Eosinophils % (Manual) 0 % (0-3) Basophils % (Manual) 0 % (0-2) Band Neutrophils 0 % (0-8) Platelet Estimate Adequate Platelet Morphology Normal Red Blood Cell Morphology Normal Sodium Level 138 MMOL/L (136-145) Potassium Level 4.1 MMOL/L (3.5-5.1) Chloride Level 103 MMOL/L (98-107) Carbon Dioxide Level 26 MMOL/L (21-32) Anion Gap 9 mmol/L (5-15) Blood Urea Nitrogen 16 mg/dL (7-18) Creatinine 1.0 MG/DL (0.55-1.30) Estimat Glomerular Filtration Rate 58.0 mL/min (>60) Glucose Level 126 MG/DL (74-106) H Uric Acid 7.1 MG/DL (2.6-7.2) Calcium Level 9.0 MG/DL (8.5-10.1) Phosphorus Level 3.0 MG/DL (2.5-4.9) Magnesium Level 2.2 MG/DL (1.8-2.4) Total Bilirubin 0.6 MG/DL (0.2-1.0) Aspartate Amino Transf (AST/SGOT) 18 U/L (15-37) Alanine Aminotransferase (ALT/SGPT) 42 U/L (12-78) Alkaline Phosphatase 63 U/L (46-116) C-Reactive Protein, Quantitative 10.2 mg/dL (0.00-0.90) H Pro-B-Type Natriuretic Peptide 151 pg/mL (0-125) H Total Protein 7.3 G/DL (6.4-8.2) Albumin 3.5 G/DL (3.4-5.0) Globulin 3.8 g/dL Albumin/Globulin Ratio 0.9 (1.0-2.7) L Triglycerides Level 43 MG/DL (30-150) Cholesterol Level 158 MG/DL (< 200) LDL Cholesterol 85 mg/dL (<100) HDL Cholesterol 61 MG/DL (40-60) H Cholesterol/HDL Ratio 2.6 (3.3-4.4) L Thyroid Stimulating Hormone (TSH) 0.306 uiU/mL (0.358-3.740) Urine Opiates Screen Negative (NEGATIVE) Urine Barbiturates Screen Negative (NEGATIVE) Phencyclidine (PCP) Screen Negative (NEGATIVE) Urine Amphetamines Screen Negative (NEGATIVE) Urine Benzodiazepines Screen Negative (NEGATIVE) Urine Cocaine Screen Negative (NEGATIVE) Urine Marijuana (THC) Screen Negative (NEGATIVE) Microbiology Date/Time Source Procedure Growth Status 12/31/19 16:30 Nasopharynx Coronavirus COVID-19 PCR ([facility]) - Final Complete Objective HEENT: Atraumatic and normocephalic. Anicteric. Pupils are equal, round, and reactive to light and accommodation. Extraocular muscles intact. NECK: No JVD, No carotid bruit, carotid upstroke 2+ B/L. CVS: [place] S1S2, Regular rate and rhythm, no murmurs, gallops or rubs. ABDOMEN: Soft, nontender, nondistended. No hepatosplenomegaly. Positive bowel sounds. EXTREMITIES: No evidence of edema, clubbing, or cyanosis. Genaro Barrett MD Jan 01, 2020 16:00
[2020-01-01] MEDS ORDERED: cefTRIAXone 2 GM in D5W 55 ML IVPB SCH (18:00)
[2020-01-01 20:00] VITALS: BP 140/84
--- NOTE | 2020-01-01 23:00 | Consultation ---
DATE OF CONSULTATION: 01/01/2020 INFECTIOUS DISEASE CONSULTATION CONSULTING PHYSICIAN: Carol Ann Davis MD. REQUESTING PHYSICIAN: Radha Chan MD. REASON FOR CONSULTATION: Cough, shortness of breath, possible aspiration pneumonia, rule out COVID-19 infection. HISTORY OF PRESENT ILLNESS: The patient is a 54-year-old female with no significant past medical history, who presented to [facility] Emergency Room with sudden onset of shortness of breath and cough after she ate chicken and got something stuck in her throat and vomited at home. The patient became hypoxemic, short of breath, and coughing and she vomited everything she ate. Previously, she has been healthy. Denied any sick contact or recent travel, but she goes to [place] where they had many cases as per the patient's report. In the ER, she had oxygen saturation of 75% on room air with pulse of 114 and temperature 98.8. Chest x-ray showed hazy bibasilar airspace opacity suggestive of multifocal pneumonia and her lab showed leukocytosis, so the patient was started on ceftriaxone and azithromycin empiric coverage and Infectious Disease consultation was requested for antibiotics treatment and further care. REVIEW OF SYSTEMS: A 14-point of system reviewed were all negative apart from the one I mentioned above in my History and Physical. PAST MEDICAL HISTORY: Negative. PAST SURGICAL HISTORY: Negative. FAMILY HISTORY: Noncontributory. SOCIAL HISTORY: She lives at home with . 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 Denied using any drugs, tobacco, or alcohol. ALLERGIES: She has no known drug allergies. MEDICATIONS: She is currently on ceftriaxone and Zithromax. For the rest of her medications, please refer to [facility]. LABORATORY DATA: Laboratory showed white count of 21,900, hemoglobin of 12.7, platelet count of 183,000. BUN of 25, creatinine of 1.4. AST of 27, ALT of 50, alkaline phosphatase of 75. IMAGING: Chest x-ray showed hazy bibasilar airspace opacity, possibility of multifocal pneumonia including viral pneumonia not excluded given history of cough. PHYSICAL EXAMINATION: VITAL SIGNS: Temperature 98.8, pulse 98, respirations 16, blood pressure 118/78, saturation 99% on room air. GENERAL: A middle-aged female, obese, lying in bed, awake, alert, responsive, not in acute distress. HEENT: Normocephalic and atraumatic. Pupils are reactive to light, equal. Moist oral mucosa. No exudate or thrush. NECK: Supple. No lymphadenopathy. CARDIOVASCULAR: Regular rate and rhythm. No murmur or gallop. LUNGS: She had crackles and rales mainly at the bases. Normal breathing efforts. ABDOMEN: Soft, obese, nontender, and not distended. Normal bowel sounds. No hepatosplenomegaly or ascites. EXTREMITIES: No edema or cyanosis. ASSESSMENT AND RECOMMENDATION: 1. Bilateral multifocal pneumonia, rule out COVID-19 infection. Continue current antibiotics treatment with ceftriaxone and Zithromax, and isolation for COVID-19 pending confirmatory test. 2. Hypoxia, suspect due to the above. Continue oxygen supplement and supportive care. She might be a candidate for remdesivir if confirmed positive for COVID-19 infection. 3. Suspected 2019 novel coronavirus infection. We will send COVID-19 rapid ID test now for screening, keep the patient in enhanced droplet isolation for now pending PCR test, which was sent from the ER. 4. Acute kidney injury. Suspect dehydration. Continue IV fluid. Avoid nephrotoxics. Thank you for the consult. ID will continue to follow. Please feel free to call with any question. Carol Ann Davis M.D. DR: GABRIEL JOB#: [id number] CC: LANETTE
[2020-01-02] VITALS: BP 135/71
[2020-01-02] MEDS: Piperacillin/Tazobactam 3.375 GM in NS 110 ML IVPB SCH ×3 (02:33→17:59)
[2020-01-02 04:00] VITALS: BP 110/55
[2020-01-02 08:00] VITALS: BP 128/61
[2020-01-02] MEDS ORDERED: D5W 550ml IV ONE (08:35)
[2020-01-02] MEDS ORDERED: Tubing IV Secondary IV ONE (08:35)
[2020-01-02] MEDS: Enoxaparin 40mg Inj SUBQ SCH ×2 (09:52→20:53)
--- NOTE | 2020-01-02 10:35 | Nephrology Progress Note ---
Assessment/Plan Problem List: (1) CANDICE (acute kidney injury) (2) Dehydration (3) Pneumonia Plan January 01: Patient clinically stable. No blood work done today. Will check on lab tomorrow. Previously: Serum creatinine is now normalized with hydration. White blood cell counts vipul, continue antibiotics per ID. Avoid nephrotoxic's, monitor renal parameters and electrolytes. Subjective ROS Limited/Unobtainable: No Constitutional: Reports: malaise Objective Objective Last 24 Hour Vital Signs Date Time Temp Pulse Resp B/P (MAP) Pulse Ox O2 Delivery O2 Flow Rate FiO2 01/02/20 08:00 100.2 112 20 128/61 (83) 93 01/02/20 04:00 100.8 111 20 110/55 (73) 94 01/02/20 04:00 105 01/02/20 00:00 120 01/02/20 00:00 102.2 113 20 135/71 (92) 89 01/01/20 21:00 Nasal Cannula 3.0 01/01/20 20:47 101.7 01/01/20 20:00 107 01/01/20 20:00 101.3 114 20 140/84 (102) 90 01/01/20 16:00 99.0 102 20 145/66 (92) 98 01/01/20 16:00 103 01/01/20 13:13 92 01/01/20 12:00 98.4 92 20 140/79 (99) 99 Intake and Output 01/01/20 01/02/20 19:00 07:00 Intake Total 800 ml 577.5 ml Balance 800 ml 577.5 ml Intake Oral 800 ml IV Total 577.5 ml # Voids 6 # Bowel Movements 1 1 Laboratory Tests 01/01/20 14:15: Urine Opiates Screen Negative, Urine Barbiturates Screen Negative, Phencyclidine (PCP) Screen Negative, Urine Amphetamines Screen Negative, Urine Benzodiazepines Screen Negative, Urine Cocaine Screen Negative, Urine Marijuana (THC) Screen Negative Height (Feet): 5 Height (Inches): 7.00 Weight (Pounds): 263 General Appearance: no apparent distress Cardiovascular: tachycardia Respiratory/Chest: decreased breath sounds Abdomen: soft Austin Perry MD Jan 02, 2020 10:35
--- NOTE | 2020-01-02 10:49 | General Progress Note ---
Assessment/Plan Assessment/Plan: S: I am ok O: seems comfortable PHYSICAL EXAMINATION: HEAD AND NECK: Atraumatic and normocephalic. CHEST: Diffuse bronchial breathing sounds. HEART: S1 and S2. Regular rate and rhythm. ABDOMEN: Soft. No organomegaly. MUSCULOSKELETAL: No gross lateralized motor deficit. NEUROLOGIC: The patient is awake, alert, and oriented x3. Labs: reviewed from today Meds: reviewed and reconciled ASSESSMENT: 1. Sepsis secondary to community-acquired pneumonia. 2. Asthma/COPD. 3. Renal failure, age indeterminate. 4. Abnormal blood sugar. 5. GI and DVT prophylaxes. PLAN OF CARE: Pending repeated CoVID 19 test current empirical abx Subjective Allergies: Coded Allergies: No Known Allergies (Unverified , 12/31/19) Objective Last 24 Hour Vital Signs Date Time Temp Pulse Resp B/P (MAP) Pulse Ox O2 Delivery O2 Flow Rate FiO2 01/02/20 08:00 100.2 112 20 128/61 (83) 93 01/02/20 04:00 100.8 111 20 110/55 (73) 94 01/02/20 04:00 105 01/02/20 00:00 120 01/02/20 00:00 102.2 113 20 135/71 (92) 89 01/01/20 21:00 Nasal Cannula 3.0 01/01/20 20:47 101.7 01/01/20 20:00 107 01/01/20 20:00 101.3 114 20 140/84 (102) 90 01/01/20 16:00 99.0 102 20 145/66 (92) 98 01/01/20 16:00 103 01/01/20 13:13 92 01/01/20 12:00 98.4 92 20 140/79 (99) 99 Intake and Output 01/01/20 01/02/20 19:00 07:00 Intake Total 800 ml 577.5 ml Balance 800 ml 577.5 ml Intake Oral 800 ml IV Total 577.5 ml # Voids 6 # Bowel Movements 1 1 Laboratory Tests 01/01/20 14:15: Urine Opiates Screen Negative, Urine Barbiturates Screen Negative, Phencyclidine (PCP) Screen Negative, Urine Amphetamines Screen Negative, Urine Benzodiazepines Screen Negative, Urine Cocaine Screen Negative, Urine Marijuana (THC) Screen Negative Height (Feet): 5 Height (Inches): 7.00 Weight (Pounds): 263 Radha Chan MD Jan 02, 2020 10:49
[2020-01-02] MEDS: Vancomycin 1.5gm/NS Premix IVPB SCH ×2 (11:24→23:17)
[2020-01-02 12:00] VITALS: BP 132/73
--- NOTE | 2020-01-02 12:08 | Pulmonology Progress Note ---
Subjective ROS Limited/Unobtainable: No Interval Events: None new reported Constitutional: Reports: no symptoms HEENT: Repors: no symptoms Respiratory: Reports: no symptoms Cardiovascular: Reports: no symptoms Gastrointestinal/Abdominal: Reports: no symptoms Genitourinary: Reports: no symptoms Allergies: Coded Allergies: No Known Allergies (Unverified , 12/31/19) Objective Last 24 Hour Vital Signs Date Time Temp Pulse Resp B/P (MAP) Pulse Ox O2 Delivery O2 Flow Rate FiO2 01/02/20 09:00 Nasal Cannula 3.0 01/02/20 08:00 103 01/02/20 08:00 100.2 112 20 128/61 (83) 93 01/02/20 04:00 100.8 111 20 110/55 (73) 94 01/02/20 04:00 105 01/02/20 00:00 120 01/02/20 00:00 102.2 113 20 135/71 (92) 89 01/01/20 21:00 Nasal Cannula 3.0 01/01/20 20:47 101.7 01/01/20 20:00 107 01/01/20 20:00 101.3 114 20 140/84 (102) 90 01/01/20 16:00 99.0 102 20 145/66 (92) 98 01/01/20 16:00 103 01/01/20 13:13 92 Intake and Output 01/01/20 01/02/20 19:00 07:00 Intake Total 800 ml 577.5 ml Balance 800 ml 577.5 ml Intake Oral 800 ml IV Total 577.5 ml # Voids 6 # Bowel Movements 1 1 General Appearance: no acute distress HEENT: normocephalic Respiratory: chest wall non-tender, decreased breath sounds Cardiovascular: normal peripheral pulses Abdomen: normal bowel sounds Microbiology Date/Time Source Procedure Growth Status 12/31/19 16:30 Blood Blood Culture - Preliminary NO GROWTH AFTER 24 HOURS Resulted 12/31/19 16:11 Blood Blood Culture - Preliminary NO GROWTH AFTER 24 HOURS Resulted 12/31/19 16:30 Nasopharynx Coronavirus COVID-19 PCR ([facility]) - Final Complete Laboratory Tests 01/01/20 14:15: Urine Opiates Screen Negative, Urine Barbiturates Screen Negative, Phencyclidine (PCP) Screen Negative, Urine Amphetamines Screen Negative, Urine Benzodiazepines Screen Negative, Urine Cocaine Screen Negative, Urine Marijuana (THC) Screen Negative Current Medications Medications (Trade) Dose Ordered Sig/Jorge Alberto Route PRN Reason Start Time Stop Time Status Last Admin Dose Admin Acetaminophen (Tylenol) 650 mg Q4H PRN ORAL Mild Pain (Pain Scale 1-3) 01/01/20 00:00 01/31/20 00:00 01/02/20 11:24 Acetaminophen/ Hydrocodone Bitart ([place] 5/325) 1 tab Q4H PRN ORAL Moderate Pain (Pain Scale 4-6) 01/01/20 00:00 01/08/20 00:00 Albuterol Sulfate (Proventil MDI) 2 puff Q4H PRN INH Shortness of Breath 01/01/20 00:00 03/31/20 00:00 Enoxaparin Sodium (Lovenox) 40 mg EVERY 12 HOURS SUBQ 01/01/20 09:00 03/31/20 08:59 01/02/20 09:52 Pantoprazole (Protonix) 40 mg DAILY ORAL 01/01/20 09:00 01/31/20 08:59 01/02/20 09:51 Piperacillin Sod/ Tazobactam Sod 3.375 gm/Sodium Chloride 110 ml @ 27.5 mls/hr Q8H IVPB 01/02/20 02:00 01/09/20 01:59 01/02/20 09:51 Vancomycin HCl (Vanco pharmacy to dose) 1 ea DAILY PRN MISC rx protocol 01/02/20 10:00 02/01/20 08:59 Vancomycin/Sodium Chloride 275 ml @ 137.5 mls/ hr Q12H IVPB 01/02/20 11:00 01/07/20 10:59 01/02/20 11:24 Zolpidem Tartrate (Ambien) 5 mg HSPRN PRN ORAL Insomnia 01/01/20 00:00 01/08/20 00:00 01/01/20 21:39 Assessment/Plan Assessment/Plan ASSESSMENT AND PLAN: 1. Shortness of breath. Has multilobar pneumonia 2. Acute kidney injury. Improved 3. Leukocytosis. Worse today PLAN Abx per ID Fluids Will follow o2 Ross Shukla M.D., MD Jan 02, 2020 12:08
[2020-01-02 16:00] VITALS: BP 117/55
[2020-01-02] MEDS: HYDROcodone/Acetamin 5/325 tab ORAL PRN (18:00)
--- NOTE | 2020-01-02 18:43 | Infectious Diseases Prog Note ---
Assessment/Plan Problems: (1) Pneumonia Assessment & Plan: with bilateral multifocal infiltration, and NEGATIVE PCR FOR COV ID 19 , continue current antibiotics with vancomycin and zosyn . (2) Hypoxia Assessment & Plan: suspect due to the above continue oxygen supplement and supportive care , pulmonary is following (3) Suspected 2019 novel coronavirus infection Assessment & Plan: COVID 19 rapid ID test was cancelled by Dr Burnett , and PCR test is negative . less likely COVID infection (4) CANDICE (acute kidney injury) Assessment & Plan: suspect dehydration continue IV fluid avoid nephrotoxic's Subjective Constitutional: Reports: fever HEENT: Reports: no symptoms Respiratory: Reports: dry cough Breasts: Reports: no symptoms Cardiovascular: Reports: no symptoms Gastrointestinal/Abdominal: Reports: no symptoms Genitourinary: Reports: no symptoms Neurologic: Reports: no symptoms Psychiatric: Reports: no symptoms Skin: Reports: no symptoms Endocrine: Reports: no symptoms Hematologic: Reports: no symptoms Musculoskeletal: Reports: no symptoms Allergies: Coded Allergies: No Known Allergies (Unverified , 12/31/19) Objective Vital Signs Last 24 Hour Vital Signs Date Time Temp Pulse Resp B/P (MAP) Pulse Ox O2 Delivery O2 Flow Rate FiO2 01/02/20 16:00 105 01/02/20 16:00 97.9 102 20 117/55 (75) 95 01/02/20 12:57 99 01/02/20 12:00 98.2 102 20 132/73 (92) 95 01/02/20 12:00 98.2 01/02/20 09:00 Nasal Cannula 3.0 01/02/20 08:00 103 01/02/20 08:00 100.2 112 20 128/61 (83) 93 01/02/20 04:00 100.8 111 20 110/55 (73) 94 01/02/20 04:00 105 01/02/20 00:00 120 01/02/20 00:00 102.2 113 20 135/71 (92) 89 01/01/20 21:00 Nasal Cannula 3.0 01/01/20 20:00 107 01/01/20 20:00 101.3 114 20 140/84 (102) 90 Height (Feet): 5 Height (Inches): 7.00 Weight (Pounds): 263 General Appearance: WD/WN, no acute distress HEENT: normocephalic, atraumatic, anicteric, mucous membranes moist, PERRL Respiratory/Chest: chest wall non-tender, no respiratory distress, no accessory muscle use, decreased breath sounds, crackles/rales Cardiovascular: normal peripheral pulses, normal rate, regular rhythm, no gallop/murmur, no JVD Abdomen: normal bowel sounds, soft, non tender, no organomegaly, non distended , no mass, no scars Genitourinary: normal external genitalia Extremities: no cyanosis, no clubbing Skin: no rash, no lesions, no ulcers 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, no motor/sensory deficits, alert, oriented x 3, responsive Lymphatic: no neck adenopathy, no groin adenopathy Musculoskeletal: normal muscle bulk, no effusion Microbiology Date/Time Source Procedure Growth Status 12/31/19 16:30 Blood Blood Culture - Preliminary NO GROWTH AFTER 24 HOURS Resulted 12/31/19 16:11 Blood Blood Culture - Preliminary NO GROWTH AFTER 24 HOURS Resulted 12/31/19 16:30 Nasopharynx Coronavirus COVID-19 PCR ([facility]) - Final Complete Current Medications Medications (Trade) Dose Ordered Sig/Jorge Alberto Route PRN Reason Start Time Stop Time Status Last Admin Dose Admin Acetaminophen (Tylenol) 650 mg Q4H PRN ORAL Mild Pain (Pain Scale 1-3) 01/01/20 00:00 01/31/20 00:00 01/02/20 11:24 Acetaminophen/ Hydrocodone Bitart ([place] 5/325) 1 tab Q4H PRN ORAL Moderate Pain (Pain Scale 4-6) 01/01/20 00:00 01/08/20 00:00 01/02/20 18:00 Albuterol Sulfate (Proventil MDI) 2 puff Q4H PRN INH Shortness of Breath 01/01/20 00:00 03/31/20 00:00 Enoxaparin Sodium (Lovenox) 40 mg EVERY 12 HOURS SUBQ 01/01/20 09:00 03/31/20 08:59 01/02/20 09:52 Pantoprazole (Protonix) 40 mg DAILY ORAL 01/01/20 09:00 01/31/20 08:59 01/02/20 09:51 Piperacillin Sod/ Tazobactam Sod 3.375 gm/Sodium Chloride 110 ml @ 27.5 mls/hr Q8H IVPB 01/02/20 02:00 01/09/20 01:59 01/02/20 17:59 Vancomycin HCl (Vanco pharmacy to dose) 1 ea DAILY PRN MISC rx protocol 01/02/20 10:00 02/01/20 08:59 Vancomycin/Sodium Chloride 275 ml @ 137.5 mls/ hr Q12H IVPB 01/02/20 11:00 01/07/20 10:59 01/02/20 11:24 Zolpidem Tartrate (Ambien) 5 mg HSPRN PRN ORAL Insomnia 01/01/20 00:00 01/08/20 00:00 01/01/20 21:39 Carol Ann Davis M.D. Jan 02, 2020 18:43
[2020-01-02 20:00] VITALS: BP 117/66
--- NOTE | 2020-01-02 22:29 | Cardiology Progress Note ---
Assessment/Plan Assessment/Plan 1. Shortness of breath, due to multilobar pneumonia. Normal brain natriuretic peptide essentially ruled out acute congestive heart failure. COVID-19 infection is ruled out. 2. Sinus tachycardia, possibly sepsis, may have element of hyperthyroidism. 2. Acute kidney injury, resolved. Subjective Subjective Sinus tachycardia at rate of 107. Febrile. Objective Last 24 Hour Vital Signs Date Time Temp Pulse Resp B/P (MAP) Pulse Ox O2 Delivery O2 Flow Rate FiO2 01/02/20 21:21 98.7 01/02/20 21:00 Nasal Cannula 3.0 01/02/20 20:00 101.1 107 20 117/66 (83) 95 01/02/20 19:43 103 01/02/20 16:00 105 01/02/20 16:00 97.9 102 20 117/55 (75) 95 01/02/20 12:57 99 01/02/20 12:00 98.2 102 20 132/73 (92) 95 01/02/20 09:00 Nasal Cannula 3.0 01/02/20 08:00 103 01/02/20 08:00 100.2 112 20 128/61 (83) 93 01/02/20 04:00 100.8 111 20 110/55 (73) 94 01/02/20 04:00 105 01/02/20 00:00 120 01/02/20 00:00 102.2 113 20 135/71 (92) 89 Intake and Output 01/01/20 01/02/20 19:00 07:00 Intake Total 800 ml 577.5 ml Balance 800 ml 577.5 ml Intake Oral 800 ml IV Total 577.5 ml # Voids 6 # Bowel Movements 1 1 Microbiology Date/Time Source Procedure Growth Status 12/31/19 16:30 Blood Blood Culture - Preliminary NO GROWTH AFTER 24 HOURS Resulted 12/31/19 16:11 Blood Blood Culture - Preliminary NO GROWTH AFTER 24 HOURS Resulted 12/31/19 16:30 Nasopharynx Coronavirus COVID-19 PCR ([facility]) - Final Complete Objective HEENT: Atraumatic and normocephalic. Anicteric. Pupils are equal, round, and reactive to light and accommodation. Extraocular muscles intact. NECK: No JVD, No carotid bruit, carotid upstroke 2+ B/L. CVS: Normal S1S2, tachycardia, regular rate and rhythm, no murmurs, gallops or rubs. ABDOMEN: Soft, nontender, nondistended. No hepatosplenomegaly. Positive bowel sounds. EXTREMITIES: No evidence of edema, clubbing, or cyanosis. Genaro Barrett MD Jan 02, 2020 22:29
[2020-01-03] VITALS: BP 112/61
[2020-01-03] MEDS: Piperacillin/Tazobactam 3.375 GM in NS 110 ML IVPB SCH ×2 (01:50→10:28)
[2020-01-03 04:00] VITALS: BP 150/72
[2020-01-03 07:22] LABS: ALANINE AMINOTRANSFERASE 20 U/L (12-78); ALBUMIN 2.7 G/DL (3.4-5.0); ALBUMIN/GLOBULIN RATIO 0.6 (1.0-2.7); ALKALINE PHOSPHATASE 70 U/L (46-116); ANION GAP 9 mmol/L (5-15); ASPARTATE AMINO TRANSFERASE 8 U/L (15-37); BILIRUBIN,TOTAL 0.8 MG/DL (0.2-1.0); BLOOD UREA NITROGEN 13 mg/dL (7-18); CALCIUM 8.8 MG/DL (8.5-10.1); CARBON DIOXIDE 26 MMOL/L (21-32); CHLORIDE 104 MMOL/L (98-107); HEMATOCRIT 35.5 % (37.0-47.0); HEMOGLOBIN 11.2 G/DL (12.0-16.0); MEAN CORPUSCULAR VOLUME 96 FL (80-99); PHOSPHORUS 3.2 MG/DL (2.5-4.9); PLATELET COUNT 156 K/UL (150-450); POTASSIUM 3.6 MMOL/L (3.5-5.1); RED BLOOD COUNT 3.71 M/UL (4.20-5.40); RED CELL DISTRIBUTION WIDTH 12.9 % (11.6-14.8); SODIUM 139 MMOL/L (136-145); WHITE BLOOD COUNT 14.8 K/UL (4.8-10.8)
[2020-01-03 08:00] VITALS: BP 117/69
[2020-01-03] MEDS: Enoxaparin 40mg Inj SUBQ SCH ×2 (08:22→20:25)
[2020-01-03] MEDS: HYDROcodone/Acetamin 5/325 tab ORAL PRN ×2 (08:23→22:55)
--- NOTE | 2020-01-03 09:51 | General Progress Note ---
Assessment/Plan Assessment/Plan: S: I am ok O: seems comfortable PHYSICAL EXAMINATION: HEAD AND NECK: Atraumatic and normocephalic. CHEST: Diffuse bronchial breathing sounds. HEART: S1 and S2. Regular rate and rhythm. ABDOMEN: Soft. No organomegaly. MUSCULOSKELETAL: No gross lateralized motor deficit. NEUROLOGIC: The patient is awake, alert, and oriented x3. Labs: reviewed from today Meds: reviewed and reconciled ASSESSMENT: 1. Sepsis secondary to community-acquired pneumonia. 2. Asthma/COPD. 3. Renal failure, age indeterminate. 4. Abnormal blood sugar. 5. GI and DVT prophylaxes. PLAN OF CARE: remians high risk for COVID infection Pending repeated CoVID 19 test current empirical abx Subjective Allergies: Coded Allergies: No Known Allergies (Unverified , 12/31/19) Objective Last 24 Hour Vital Signs Date Time Temp Pulse Resp B/P (MAP) Pulse Ox O2 Delivery O2 Flow Rate FiO2 01/03/20 08:00 98.4 88 20 117/69 (85) 93 01/03/20 04:00 99.0 91 20 150/72 (98) 95 01/03/20 03:36 99 01/03/20 00:00 98.8 91 20 112/61 (78) 95 01/02/20 23:22 88 01/02/20 21:21 98.7 01/02/20 21:00 Nasal Cannula 3.0 01/02/20 20:00 101.1 107 20 117/66 (83) 95 01/02/20 19:43 103 01/02/20 16:00 105 01/02/20 16:00 97.9 102 20 117/55 (75) 95 01/02/20 12:57 99 01/02/20 12:00 98.2 102 20 132/73 (92) 95 Intake and Output 01/02/20 01/03/20 19:00 07:00 Intake Total 745.0 ml Balance 745.0 ml Intake Oral 250 ml IV Total 495.0 ml # Voids 3 4 # Bowel Movements 1 1 Laboratory Tests 01/03/20 06:10: White Blood Count 14.8H, Red Blood Count 3.71L, Hemoglobin 11.2L, Hematocrit 35.5L, Mean Corpuscular Volume 96, Mean Corpuscular Hemoglobin 30.3, Mean Corpuscular Hemoglobin Concent 31.6L, Red Cell Distribution Width 12.9, Platelet Count 156, Mean Platelet Volume 7.8, Neutrophils (%) (Auto) , Lymphocytes (%) (Auto) , Monocytes (%) (Auto) , Eosinophils (%) (Auto) , Basophils (%) (Auto) , Neutrophils % (Manual) [Pending], Lymphocytes % (Manual) [Pending], Platelet Estimate [Pending], Platelet Morphology [Pending], Sodium Level 139, Potassium Level 3.6, Chloride Level 104, Carbon Dioxide Level 26, Anion Gap 9, Blood Urea Nitrogen 13, Creatinine 1.0, Estimat Glomerular Filtration Rate 58.0, Glucose Level 118H, Calcium Level 8.8, Phosphorus Level 3.2, Magnesium Level 2.2, Total Bilirubin 0.8, Aspartate Amino Transf (AST/SGOT ) 8L, Alanine Aminotransferase (ALT/SGPT) 20, Alkaline Phosphatase 70, Total Protein 6.9, Albumin 2.7L, Globulin 4.2, Albumin/Globulin Ratio 0.6L Height (Feet): 5 Height (Inches): 7.00 Weight (Pounds): 263 Radha Chan MD Jan 03, 2020 09:51
--- NOTE | 2020-01-03 10:10 | Pulmonology Progress Note ---
Subjective ROS Limited/Unobtainable: No Interval Events: None new reported Constitutional: Reports: fever HEENT: Repors: no symptoms Respiratory: Reports: no symptoms Cardiovascular: Reports: no symptoms Gastrointestinal/Abdominal: Reports: no symptoms Genitourinary: Reports: no symptoms Psychiatric: Reports: no symptoms Skin: Reports: no symptoms Musculoskeletal: Reports: no symptoms Allergies: Coded Allergies: No Known Allergies (Unverified , 12/31/19) Objective Last 24 Hour Vital Signs Date Time Temp Pulse Resp B/P (MAP) Pulse Ox O2 Delivery O2 Flow Rate FiO2 01/03/20 09:00 Nasal Cannula 3.0 01/03/20 08:00 98.4 88 20 117/69 (85) 93 01/03/20 04:00 99.0 91 20 150/72 (98) 95 01/03/20 03:36 99 01/03/20 00:00 98.8 91 20 112/61 (78) 95 01/02/20 23:22 88 01/02/20 21:21 98.7 01/02/20 21:00 Nasal Cannula 3.0 01/02/20 20:00 101.1 107 20 117/66 (83) 95 01/02/20 19:43 103 01/02/20 16:00 105 01/02/20 16:00 97.9 102 20 117/55 (75) 95 01/02/20 12:57 99 01/02/20 12:00 98.2 102 20 132/73 (92) 95 Intake and Output 01/02/20 01/03/20 19:00 07:00 Intake Total 745.0 ml Balance 745.0 ml Intake Oral 250 ml IV Total 495.0 ml # Voids 3 4 # Bowel Movements 1 1 General Appearance: no acute distress HEENT: normocephalic Respiratory: chest wall non-tender, decreased breath sounds Cardiovascular: normal peripheral pulses Abdomen: normal bowel sounds Microbiology Date/Time Source Procedure Growth Status 01/01/20 22:29 Blood Blood Culture - Preliminary NO GROWTH AFTER 24 HOURS Resulted 01/01/20 22:15 Blood Blood Culture - Preliminary NO GROWTH AFTER 24 HOURS Resulted 12/31/19 16:30 Blood Blood Culture - Preliminary NO GROWTH AFTER 48 HOURS Resulted 12/31/19 16:11 Blood Blood Culture - Preliminary NO GROWTH AFTER 48 HOURS Resulted 12/31/19 16:30 Nasopharynx Coronavirus COVID-19 PCR ([facility]) - Final Complete Laboratory Tests 01/03/20 06:10: White Blood Count 14.8H, Red Blood Count 3.71L, Hemoglobin 11.2L, Hematocrit 35.5L, Mean Corpuscular Volume 96, Mean Corpuscular Hemoglobin 30.3, Mean Corpuscular Hemoglobin Concent 31.6L, Red Cell Distribution Width 12.9, Platelet Count 156, Mean Platelet Volume 7.8, Neutrophils (%) (Auto) , Lymphocytes (%) (Auto) , Monocytes (%) (Auto) , Eosinophils (%) (Auto) , Basophils (%) (Auto) , Neutrophils % (Manual) [Pending], Lymphocytes % (Manual) [Pending], Platelet Estimate [Pending], Platelet Morphology [Pending], Sodium Level 139, Potassium Level 3.6, Chloride Level 104, Carbon Dioxide Level 26, Anion Gap 9, Blood Urea Nitrogen 13, Creatinine 1.0, Estimat Glomerular Filtration Rate 58.0, Glucose Level 118H, Calcium Level 8.8, Phosphorus Level 3.2, Magnesium Level 2.2, Total Bilirubin 0.8, Aspartate Amino Transf (AST/SGOT ) 8L, Alanine Aminotransferase (ALT/SGPT) 20, Alkaline Phosphatase 70, Total Protein 6.9, Albumin 2.7L, Globulin 4.2, Albumin/Globulin Ratio 0.6L Current Medications Medications (Trade) Dose Ordered Sig/Jorge Alberto Route PRN Reason Start Time Stop Time Status Last Admin Dose Admin Acetaminophen (Tylenol) 650 mg Q4H PRN ORAL Mild Pain (Pain Scale 1-3) 01/01/20 00:00 01/31/20 00:00 01/03/20 04:14 Acetaminophen (Tylenol) 650 mg Q4H PRN ORAL Temp >100.5 01/02/20 20:45 02/01/20 20:44 Acetaminophen/ Hydrocodone Bitart ([place] 5/325) 1 tab Q4H PRN ORAL Moderate Pain (Pain Scale 4-6) 01/01/20 00:00 01/08/20 00:00 01/03/20 08:23 Albuterol Sulfate (Proventil MDI) 2 puff Q4H PRN INH Shortness of Breath 01/01/20 00:00 03/31/20 00:00 Enoxaparin Sodium (Lovenox) 40 mg EVERY 12 HOURS SUBQ 01/01/20 09:00 03/31/20 08:59 01/03/20 08:22 Pantoprazole (Protonix) 40 mg DAILY ORAL 01/01/20 09:00 01/31/20 08:59 01/03/20 08:23 Piperacillin Sod/ Tazobactam Sod 3.375 gm/Sodium Chloride 110 ml @ 27.5 mls/hr Q8H IVPB 01/02/20 02:00 01/09/20 01:59 01/03/20 01:50 Vancomycin HCl (Vanco pharmacy to dose) 1 ea DAILY PRN MISC rx protocol 01/02/20 10:00 02/01/20 08:59 Vancomycin/Sodium Chloride 275 ml @ 137.5 mls/ hr Q12H IVPB 01/02/20 11:00 01/07/20 10:59 01/02/20 23:17 Zolpidem Tartrate (Ambien) 5 mg HSPRN PRN ORAL Insomnia 01/01/20 00:00 01/08/20 00:00 01/01/20 21:39 Assessment/Plan Assessment/Plan ASSESSMENT AND PLAN: 1. Shortness of breath. Has multilobar pneumonia 2. Acute kidney injury. Improved 3. Leukocytosis. Worse today PLAN Abx per ID Fluids Will follow O2; saturating well on 3L/min o2 Ross Shukla M.D., MD Jan 03, 2020 10:10
[2020-01-03] MEDS: Vancomycin 1.5gm/NS Premix IVPB SCH (10:28)
[2020-01-03 12:00] VITALS: BP 121/68
--- NOTE | 2020-01-03 12:11 | Nephrology Progress Note ---
Assessment/Plan Problem List: (1) CANDICE (acute kidney injury) (2) Dehydration (3) Pneumonia Plan January 02: Patient remains stable from renal standpoint of view. Labs reviewed. White blood cells are down to 14,500. January 01: Patient clinically stable. No blood work done today. Will check on lab tomorrow. Previously: Serum creatinine is now normalized with hydration. White blood cell counts vipul, continue antibiotics per ID. Avoid nephrotoxic's, monitor renal parameters and electrolytes. Subjective ROS Limited/Unobtainable: No Constitutional: Reports: malaise Objective Objective Last 24 Hour Vital Signs Date Time Temp Pulse Resp B/P (MAP) Pulse Ox O2 Delivery O2 Flow Rate FiO2 01/03/20 09:00 Nasal Cannula 3.0 01/03/20 08:00 98.4 88 20 117/69 (85) 93 01/03/20 04:00 99.0 91 20 150/72 (98) 95 01/03/20 03:36 99 01/03/20 00:00 98.8 91 20 112/61 (78) 95 01/02/20 23:22 88 01/02/20 21:21 98.7 01/02/20 21:00 Nasal Cannula 3.0 01/02/20 20:00 101.1 107 20 117/66 (83) 95 01/02/20 19:43 103 01/02/20 16:00 105 01/02/20 16:00 97.9 102 20 117/55 (75) 95 01/02/20 12:57 99 Intake and Output 01/02/20 01/03/20 19:00 07:00 Intake Total 745.0 ml Balance 745.0 ml Intake Oral 250 ml IV Total 495.0 ml # Voids 3 4 # Bowel Movements 1 1 Laboratory Tests 01/03/20 06:10: White Blood Count 14.8H, Red Blood Count 3.71L, Hemoglobin 11.2L, Hematocrit 35.5L, Mean Corpuscular Volume 96, Mean Corpuscular Hemoglobin 30.3, Mean Corpuscular Hemoglobin Concent 31.6L, Red Cell Distribution Width 12.9, Platelet Count 156, Mean Platelet Volume 7.8, Neutrophils (%) (Auto) , Lymphocytes (%) (Auto) , Monocytes (%) (Auto) , Eosinophils (%) (Auto) , Basophils (%) (Auto) , Differential Total Cells Counted 100, Neutrophils % ( Manual) 85H, Lymphocytes % (Manual) 9L, Monocytes % (Manual) 5, Eosinophils % ( Manual) 1, Basophils % (Manual) 0, Band Neutrophils 0, Platelet Estimate Adequate, Platelet Morphology Normal, Red Blood Cell Morphology Normal, Sodium Level 139, Potassium Level 3.6, Chloride Level 104, Carbon Dioxide Level 26, Anion Gap 9, Blood Urea Nitrogen 13, Creatinine 1.0, Estimat Glomerular Filtration Rate 58.0, Glucose Level 118H, Calcium Level 8.8, Phosphorus Level 3.2, Magnesium Level 2.2, Total Bilirubin 0.8, Aspartate Amino Transf (AST/SGOT ) 8L, Alanine Aminotransferase (ALT/SGPT) 20, Alkaline Phosphatase 70, Total Protein 6.9, Albumin 2.7L, Globulin 4.2, Albumin/Globulin Ratio 0.6L 01/03/20 10:15: Vancomycin Level Trough 11.9 Height (Feet): 5 Height (Inches): 7.00 Weight (Pounds): 263 General Appearance: no apparent distress Cardiovascular: normal rate Respiratory/Chest: lungs clear Abdomen: soft Austin Perry MD Jan 03, 2020 12:11
[2020-01-03] MEDS ORDERED: Albuterol 90mcg Inhaler 8gm INH PRN (13:00)
[2020-01-03 16:00] VITALS: BP 130/70
--- NOTE | 2020-01-03 17:23 | Diagnostic Imaging Report ---
Procedure: XRAY Chest 1v Reason for study: Reason For Exam: COUGH Comparison films: 12/31/2019. FINDINGS: A single one view chest is obtained. Vascularity is normal. Bibasilar infiltrates increased. Cardiac and mediastinal silhouette are within normal limits. There is a small left effusion. The bony thorax appear unremarkable. IMPRESSION: Increased bibasilar infiltrates and small left effusion
--- NOTE | 2020-01-03 19:57 | Cardiology Progress Note ---
Assessment/Plan Assessment/Plan 1. Shortness of breath, due to multilobar pneumonia. Normal brain natriuretic peptide essentially ruled out acute congestive heart failure. COVID-19 infection is ruled out. 2. Sinus tachycardia, possibly sepsis, may have element of hyperthyroidism. 2. Acute kidney injury, resolved. Subjective Subjective Transferred to the non-tele bed. Febrile. Objective Last 24 Hour Vital Signs Date Time Temp Pulse Resp B/P (MAP) Pulse Ox O2 Delivery O2 Flow Rate FiO2 01/03/20 16:54 99.1 01/03/20 16:00 101.0 103 20 130/70 (90) 94 01/03/20 12:00 87 01/03/20 12:00 100.0 89 18 121/68 (85) 94 01/03/20 09:00 Nasal Cannula 3.0 01/03/20 08:00 98.4 88 20 117/69 (85) 93 01/03/20 08:00 95 01/03/20 04:00 99.0 91 20 150/72 (98) 95 01/03/20 03:36 99 01/03/20 00:00 98.8 91 20 112/61 (78) 95 01/02/20 23:22 88 01/02/20 21:21 98.7 01/02/20 21:00 Nasal Cannula 3.0 01/02/20 20:00 101.1 107 20 117/66 (83) 95 Intake and Output 01/02/20 01/03/20 19:00 07:00 Intake Total 745.0 ml Balance 745.0 ml Intake Oral 250 ml IV Total 495.0 ml # Voids 3 4 # Bowel Movements 1 1 Laboratory Tests Test 01/03/20 06:10 01/03/20 10:15 White Blood Count 14.8 K/UL (4.8-10.8) H Red Blood Count 3.71 M/UL (4.20-5.40) L Hemoglobin 11.2 G/DL (12.0-16.0) L Hematocrit 35.5 % (37.0-47.0) L Mean Corpuscular Volume 96 FL (80-99) Mean Corpuscular Hemoglobin 30.3 PG (27.0-31.0) Mean Corpuscular Hemoglobin Concent 31.6 G/DL (32.0-36.0) L Red Cell Distribution Width 12.9 % (11.6-14.8) Platelet Count 156 K/UL (150-450) Mean Platelet Volume 7.8 FL (6.5-10.1) Neutrophils (%) (Auto) % (45.0-75.0) Lymphocytes (%) (Auto) % (20.0-45.0) Monocytes (%) (Auto) % (1.0-10.0) Eosinophils (%) (Auto) % (0.0-3.0) Basophils (%) (Auto) % (0.0-2.0) Differential Total Cells Counted 100 Neutrophils % (Manual) 85 % (45-75) H Lymphocytes % (Manual) 9 % (20-45) L Monocytes % (Manual) 5 % (1-10) Eosinophils % (Manual) 1 % (0-3) Basophils % (Manual) 0 % (0-2) Band Neutrophils 0 % (0-8) Platelet Estimate Adequate Platelet Morphology Normal Red Blood Cell Morphology Normal Sodium Level 139 MMOL/L (136-145) Potassium Level 3.6 MMOL/L (3.5-5.1) Chloride Level 104 MMOL/L (98-107) Carbon Dioxide Level 26 MMOL/L (21-32) Anion Gap 9 mmol/L (5-15) Blood Urea Nitrogen 13 mg/dL (7-18) Creatinine 1.0 MG/DL (0.55-1.30) Estimat Glomerular Filtration Rate 58.0 mL/min (>60) Glucose Level 118 MG/DL (74-106) H Calcium Level 8.8 MG/DL (8.5-10.1) Phosphorus Level 3.2 MG/DL (2.5-4.9) Magnesium Level 2.2 MG/DL (1.8-2.4) Total Bilirubin 0.8 MG/DL (0.2-1.0) Aspartate Amino Transf (AST/SGOT) 8 U/L (15-37) L Alanine Aminotransferase (ALT/SGPT) 20 U/L (12-78) Alkaline Phosphatase 70 U/L (46-116) Total Protein 6.9 G/DL (6.4-8.2) Albumin 2.7 G/DL (3.4-5.0) L Globulin 4.2 g/dL Albumin/Globulin Ratio 0.6 (1.0-2.7) L Vancomycin Level Trough 11.9 ug/mL (5.0-12.0) Microbiology Date/Time Source Procedure Growth Status 01/01/20 22:29 Blood Blood Culture - Preliminary NO GROWTH AFTER 24 HOURS Resulted 01/01/20 22:15 Blood Blood Culture - Preliminary NO GROWTH AFTER 24 HOURS Resulted Objective HEENT: Atraumatic and normocephalic. Anicteric. Pupils are equal, round, and reactive to light and accommodation. Extraocular muscles intact. NECK: No JVD, No carotid bruit, carotid upstroke 2+ B/L. CVS: Normal S1S2, tachycardia, regular rate and rhythm, no murmurs, gallops or rubs. ABDOMEN: Soft, nontender, nondistended. No hepatosplenomegaly. Positive bowel sounds. EXTREMITIES: No evidence of edema, clubbing, or cyanosis. Genaro Barrett MD Jan 03, 2020 19:57
[2020-01-03 20:00] VITALS: BP 144/82
--- NOTE | 2020-01-03 21:59 | Infectious Diseases Prog Note ---
Assessment/Plan Problems: (1) Pneumonia Assessment & Plan: with bilateral multifocal infiltration, and hypoxemia with Negative PCR for COV ID 19 and persistant fever rule out FALSE NEGATIVE PCR TEST , will repeat PCR test again to confirm , continue current antibiotics with vancomycin and zosyn . (2) Hypoxia Assessment & Plan: suspect due to the above continue oxygen supplement and supportive care , pulmonary is following (3) Suspected 2019 novel coronavirus infection Assessment & Plan: COVID 19 rapid ID test was cancelled by Dr Burnett , and PCR test is negative . less likely COVID infection but continue to be hypoxemic and febrile in spite of being on wide spectrum antibiotics , will repeat PCR test to confirm (4) CANDICE (acute kidney injury) Assessment & Plan: suspect dehydration continue IV fluid avoid nephrotoxic's Subjective Constitutional: Reports: fever HEENT: Reports: no symptoms Respiratory: Reports: shortness of breath, dry cough Breasts: Reports: no symptoms Cardiovascular: Reports: no symptoms Gastrointestinal/Abdominal: Reports: no symptoms Genitourinary: Reports: no symptoms Neurologic: Reports: no symptoms Psychiatric: Reports: no symptoms Skin: Reports: no symptoms Endocrine: Reports: no symptoms Hematologic: Reports: no symptoms Musculoskeletal: Reports: no symptoms Allergies: Coded Allergies: No Known Allergies (Unverified , 12/31/19) Objective Vital Signs Last 24 Hour Vital Signs Date Time Temp Pulse Resp B/P (MAP) Pulse Ox O2 Delivery O2 Flow Rate FiO2 01/03/20 16:54 99.1 01/03/20 16:00 101.0 103 20 130/70 (90) 94 01/03/20 12:00 87 01/03/20 12:00 100.0 89 18 121/68 (85) 94 01/03/20 09:00 Nasal Cannula 3.0 01/03/20 08:00 98.4 88 20 117/69 (85) 93 01/03/20 08:00 95 01/03/20 04:00 99.0 91 20 150/72 (98) 95 01/03/20 03:36 99 01/03/20 00:00 98.8 91 20 112/61 (78) 95 01/02/20 23:22 88 Height (Feet): 5 Height (Inches): 7.00 Weight (Pounds): 263 General Appearance: WD/WN, no acute distress HEENT: normocephalic, atraumatic, anicteric, mucous membranes moist, PERRL Respiratory/Chest: chest wall non-tender, no respiratory distress, no accessory muscle use, decreased breath sounds, expiratory wheezing Cardiovascular: normal peripheral pulses, normal rate, regular rhythm, no gallop/murmur, no JVD Abdomen: normal bowel sounds, soft, non tender, no organomegaly, non distended , no mass, no scars Genitourinary: normal external genitalia Extremities: no cyanosis, no clubbing Skin: no rash, no lesions, no ulcers Neurologic/Psychiatric: alert, oriented x 3, responsive Lymphatic: no neck adenopathy, no groin adenopathy Musculoskeletal: normal muscle bulk, no effusion Microbiology Date/Time Source Procedure Growth Status 01/01/20 22:29 Blood Blood Culture - Preliminary NO GROWTH AFTER 24 HOURS Resulted 01/01/20 22:15 Blood Blood Culture - Preliminary NO GROWTH AFTER 24 HOURS Resulted Laboratory Tests Test 01/03/20 06:10 01/03/20 10:15 White Blood Count 14.8 K/UL (4.8-10.8) H Red Blood Count 3.71 M/UL (4.20-5.40) L Hemoglobin 11.2 G/DL (12.0-16.0) L Hematocrit 35.5 % (37.0-47.0) L Mean Corpuscular Volume 96 FL (80-99) Mean Corpuscular Hemoglobin 30.3 PG (27.0-31.0) Mean Corpuscular Hemoglobin Concent 31.6 G/DL (32.0-36.0) L Red Cell Distribution Width 12.9 % (11.6-14.8) Platelet Count 156 K/UL (150-450) Mean Platelet Volume 7.8 FL (6.5-10.1) Neutrophils (%) (Auto) % (45.0-75.0) Lymphocytes (%) (Auto) % (20.0-45.0) Monocytes (%) (Auto) % (1.0-10.0) Eosinophils (%) (Auto) % (0.0-3.0) Basophils (%) (Auto) % (0.0-2.0) Differential Total Cells Counted 100 Neutrophils % (Manual) 85 % (45-75) H Lymphocytes % (Manual) 9 % (20-45) L Monocytes % (Manual) 5 % (1-10) Eosinophils % (Manual) 1 % (0-3) Basophils % (Manual) 0 % (0-2) Band Neutrophils 0 % (0-8) Platelet Estimate Adequate Platelet Morphology Normal Red Blood Cell Morphology Normal Sodium Level 139 MMOL/L (136-145) Potassium Level 3.6 MMOL/L (3.5-5.1) Chloride Level 104 MMOL/L (98-107) Carbon Dioxide Level 26 MMOL/L (21-32) Anion Gap 9 mmol/L (5-15) Blood Urea Nitrogen 13 mg/dL (7-18) Creatinine 1.0 MG/DL (0.55-1.30) Estimat Glomerular Filtration Rate 58.0 mL/min (>60) Glucose Level 118 MG/DL (74-106) H Calcium Level 8.8 MG/DL (8.5-10.1) Phosphorus Level 3.2 MG/DL (2.5-4.9) Magnesium Level 2.2 MG/DL (1.8-2.4) Total Bilirubin 0.8 MG/DL (0.2-1.0) Aspartate Amino Transf (AST/SGOT) 8 U/L (15-37) L Alanine Aminotransferase (ALT/SGPT) 20 U/L (12-78) Alkaline Phosphatase 70 U/L (46-116) Total Protein 6.9 G/DL (6.4-8.2) Albumin 2.7 G/DL (3.4-5.0) L Globulin 4.2 g/dL Albumin/Globulin Ratio 0.6 (1.0-2.7) L Vancomycin Level Trough 11.9 ug/mL (5.0-12.0) Current Medications Medications (Trade) Dose Ordered Sig/Jorge Alberto Route PRN Reason Start Time Stop Time Status Last Admin Dose Admin Acetaminophen (Tylenol) 650 mg Q4H PRN ORAL Mild Pain (Pain Scale 1-3) 01/03/20 13:00 01/31/20 12:59 01/03/20 16:24 Acetaminophen (Tylenol) 650 mg Q4H PRN ORAL Temp >100.5 01/03/20 13:00 02/01/20 12:59 Acetaminophen/ Hydrocodone Bitart ([place] 5/325) 1 tab Q4H PRN ORAL Moderate Pain (Pain Scale 4-6) 01/03/20 13:00 01/08/20 12:59 Albuterol Sulfate (Proventil MDI) 2 puff Q4H PRN INH Shortness of Breath 01/03/20 13:00 03/31/20 12:59 Enoxaparin Sodium (Lovenox) 40 mg EVERY 12 HOURS SUBQ 01/03/20 21:00 03/31/20 08:59 01/03/20 20:25 Pantoprazole (Protonix) 40 mg DAILY ORAL 01/04/20 09:00 01/31/20 08:59 Piperacillin Sod/ Tazobactam Sod 3.375 gm/Sodium Chloride 110 ml @ 27.5 mls/hr Q8H IVPB 01/04/20 02:00 01/11/20 01:59 Vancomycin HCl (Vanco pharmacy to dose) 1 ea DAILY PRN MISC rx protocol 01/03/20 13:00 02/02/20 12:59 Vancomycin HCl 1 gm/Dextrose 275 ml @ 183.708 mls/hr Q8H IVPB 01/04/20 00:00 01/09/20 00:00 Zolpidem Tartrate (Ambien) 5 mg HSPRN PRN ORAL Insomnia 01/03/20 21:00 01/10/20 20:59 Carol Ann Davis M.D. Jan 03, 2020 21:59
[2020-01-03] MEDS ORDERED: Vancomycin 1.5gm/NS Premix 275 ML IVPB SCH (23:00)
[2020-01-03] MEDS: Vancomycin 1gm/D5W 275ml IVPB SCH ×2 (23:07)
[2020-01-04] VITALS: BP 132/71
[2020-01-04] MEDS: Piperacillin/Tazobactam 3.375 GM in NS 110 ML IVPB SCH ×3 (01:14→18:35)
[2020-01-04] MEDS: Zolpidem 5mg tab ORAL PRN (01:25)
[2020-01-04 08:00] VITALS: BP 119/74
[2020-01-04] MEDS: Vancomycin 1gm/D5W 275ml IVPB SCH ×4 (08:29→17:04)
[2020-01-04] MEDS: Enoxaparin 40mg Inj SUBQ SCH ×2 (08:30→20:43)
[2020-01-04] MEDS: HYDROcodone/Acetamin 5/325 tab ORAL PRN (09:00)
--- NOTE | 2020-01-04 09:48 | Nephrology Progress Note ---
Assessment/Plan Problem List: (1) CANDICE (acute kidney injury) (2) Dehydration (3) Pneumonia Plan January 03: No can panel done today. Stable from renal standpoint of view. Check lab tomorrow. January 02: Patient remains stable from renal standpoint of view. Labs reviewed. White blood cells are down to 14,500. January 01: Patient clinically stable. No blood work done today. Will check on lab tomorrow. Previously: Serum creatinine is now normalized with hydration. White blood cell counts vipul, continue antibiotics per ID. Avoid nephrotoxic's, monitor renal parameters and electrolytes. Subjective ROS Limited/Unobtainable: No Objective Objective Last 24 Hour Vital Signs Date Time Temp Pulse Resp B/P (MAP) Pulse Ox O2 Delivery O2 Flow Rate FiO2 01/04/20 08:00 98.2 93 20 119/74 (89) 93 01/04/20 00:00 98.1 92 19 132/71 (91) 99 01/03/20 21:00 Nasal Cannula 3.0 01/03/20 20:00 98.6 99 20 144/82 (102) 100 01/03/20 16:54 99.1 01/03/20 16:00 101.0 103 20 130/70 (90) 94 01/03/20 12:00 87 01/03/20 12:00 100.0 89 18 121/68 (85) 94 Intake and Output 01/03/20 01/04/20 19:00 07:00 Intake Total 900.0 ml 745.000 ml Balance 900.0 ml 745.000 ml Intake Oral 570 ml 360 ml IV Total 330.0 ml 385.000 ml # Voids 3 4 # Bowel Movements 1 Laboratory Tests 01/03/20 10:15: Vancomycin Level Trough 11.9 No can panel drawn today Height (Feet): 5 Height (Inches): 7.00 Weight (Pounds): 263 General Appearance: no apparent distress Objective No change Austin Perry MD Jan 04, 2020 09:48
--- NOTE | 2020-01-04 11:48 | Pulmonology Progress Note ---
Subjective ROS Limited/Unobtainable: No Interval Events: febrile yesterday Constitutional: Reports: fever HEENT: Repors: no symptoms Respiratory: Reports: no symptoms Cardiovascular: Reports: no symptoms Gastrointestinal/Abdominal: Reports: no symptoms Genitourinary: Reports: no symptoms Psychiatric: Reports: no symptoms Skin: Reports: no symptoms Musculoskeletal: Reports: no symptoms Allergies: Coded Allergies: No Known Allergies (Unverified , 12/31/19) Objective Last 24 Hour Vital Signs Date Time Temp Pulse Resp B/P (MAP) Pulse Ox O2 Delivery O2 Flow Rate FiO2 01/04/20 09:00 Nasal Cannula 3.0 01/04/20 08:00 98.2 93 20 119/74 (89) 93 01/04/20 00:00 98.1 92 19 132/71 (91) 99 01/03/20 21:00 Nasal Cannula 3.0 01/03/20 20:00 98.6 99 20 144/82 (102) 100 01/03/20 16:54 99.1 01/03/20 16:00 101.0 103 20 130/70 (90) 94 01/03/20 12:00 87 01/03/20 12:00 100.0 89 18 121/68 (85) 94 Intake and Output 01/03/20 01/04/20 19:00 07:00 Intake Total 900.0 ml 745.000 ml Balance 900.0 ml 745.000 ml Intake Oral 570 ml 360 ml IV Total 330.0 ml 385.000 ml # Voids 3 4 # Bowel Movements 1 General Appearance: no acute distress HEENT: normocephalic Respiratory: chest wall non-tender, decreased breath sounds Cardiovascular: normal peripheral pulses Abdomen: normal bowel sounds Microbiology Date/Time Source Procedure Growth Status 01/01/20 22:29 Blood Blood Culture - Preliminary NO GROWTH AFTER 48 HOURS Resulted 01/01/20 22:15 Blood Blood Culture - Preliminary NO GROWTH AFTER 48 HOURS Resulted 01/01/20 23:40 Nasopharynx Coronavirus COVID-19 PCR ([facility]) - Final Complete Current Medications Medications (Trade) Dose Ordered Sig/Jorge Alberto Route PRN Reason Start Time Stop Time Status Last Admin Dose Admin Acetaminophen (Tylenol) 650 mg Q4H PRN ORAL Mild Pain (Pain Scale 1-3) 01/03/20 13:00 01/31/20 12:59 01/03/20 16:24 Acetaminophen (Tylenol) 650 mg Q4H PRN ORAL Temp >100.5 01/03/20 13:00 02/01/20 12:59 Acetaminophen/ Hydrocodone Bitart ([place] 5/325) 1 tab Q4H PRN ORAL Moderate Pain (Pain Scale 4-6) 01/03/20 13:00 01/08/20 12:59 01/04/20 09:00 Albuterol Sulfate (Proventil MDI) 2 puff Q4H PRN INH Shortness of Breath 01/03/20 13:00 03/31/20 12:59 Enoxaparin Sodium (Lovenox) 40 mg EVERY 12 HOURS SUBQ 01/03/20 21:00 03/31/20 08:59 01/04/20 08:30 Ondansetron HCl (Zofran ODT) 4 mg Q4H PRN ORAL Nausea & Vomiting 01/03/20 22:45 02/02/20 22:44 Ondansetron HCl (Zofran) 4 mg EVERY 4 HOURS PRN IVP Nausea & Vomiting 01/03/20 23:00 02/02/20 22:44 01/04/20 11:26 Pantoprazole (Protonix) 40 mg DAILY ORAL 01/04/20 09:00 01/31/20 08:59 01/04/20 08:29 Piperacillin Sod/ Tazobactam Sod 3.375 gm/Sodium Chloride 110 ml @ 27.5 mls/hr Q8H IVPB 01/04/20 02:00 01/11/20 01:59 01/04/20 11:22 Vancomycin HCl (Vanco pharmacy to dose) 1 ea DAILY PRN MISC rx protocol 01/03/20 13:00 02/02/20 12:59 Vancomycin HCl 1 gm/Dextrose 275 ml @ 183.708 mls/hr Q8H IVPB 01/04/20 00:00 01/09/20 00:00 01/04/20 08:29 Zolpidem Tartrate (Ambien) 5 mg HSPRN PRN ORAL Insomnia 01/03/20 21:00 01/10/20 20:59 01/04/20 01:25 Assessment/Plan Assessment/Plan ASSESSMENT AND PLAN: 1. Shortness of breath. Has multilobar pneumonia 2. Acute kidney injury. Improved 3. Fever noted PLAN Abx per ID Fluids Will follow O2; saturating well on 3L/min o2 Ross Shukla M.D., MD Jan 04, 2020 11:48
[2020-01-04 12:00] VITALS: BP 124/75
--- NOTE | 2020-01-04 12:38 | General Progress Note ---
Assessment/Plan Assessment/Plan: S: I am ok O: seems comfortable, no distress, in mild sob PHYSICAL EXAMINATION: HEAD AND NECK: Atraumatic and normocephalic. CHEST: Diffuse bronchial breathing sounds. HEART: S1 and S2. Regular rate and rhythm. ABDOMEN: Soft. No organomegaly. MUSCULOSKELETAL: No gross lateralized motor deficit. NEUROLOGIC: The patient is awake, alert, and oriented x3. Labs: reviewed from today Meds: reviewed and reconciled ASSESSMENT: 1. Sepsis secondary to community-acquired pneumonia. 2. Asthma/COPD. 3. Renal failure, age indeterminate. 4. Abnormal blood sugar. 5. GI and DVT prophylaxes. PLAN OF CARE: current empirical abx Notes from Pulmonary reviewed Subjective Allergies: Coded Allergies: No Known Allergies (Unverified , 12/31/19) Objective Last 24 Hour Vital Signs Date Time Temp Pulse Resp B/P (MAP) Pulse Ox O2 Delivery O2 Flow Rate FiO2 01/04/20 12:00 98.1 80 18 124/75 (91) 96 01/04/20 09:00 Nasal Cannula 3.0 01/04/20 08:00 98.2 93 20 119/74 (89) 93 01/04/20 00:00 98.1 92 19 132/71 (91) 99 01/03/20 21:00 Nasal Cannula 3.0 01/03/20 20:00 98.6 99 20 144/82 (102) 100 01/03/20 16:54 99.1 01/03/20 16:00 101.0 103 20 130/70 (90) 94 Intake and Output 01/03/20 01/04/20 19:00 07:00 Intake Total 900.0 ml 745.000 ml Balance 900.0 ml 745.000 ml Intake Oral 570 ml 360 ml IV Total 330.0 ml 385.000 ml # Voids 3 4 # Bowel Movements 1 Height (Feet): 5 Height (Inches): 7.00 Weight (Pounds): 263 Radha Chan MD Jan 04, 2020 12:38
[2020-01-04 16:00] VITALS: BP 126/73
[2020-01-04] MEDS: Ketorolac 30mg Inj IV PRN (16:41)
--- NOTE | 2020-01-04 18:11 | Infectious Diseases Prog Note ---
Assessment/Plan Problems: (1) Pneumonia Assessment & Plan: with bilateral multifocal infiltration, and NEGATIVE PCR FOR COV ID 19 , continue zosyn empirically for now . (2) Hypoxia Assessment & Plan: suspect due to the above continue oxygen supplement and supportive care , pulmonary is following (3) Suspected 2019 novel coronavirus infection Assessment & Plan: COVID 19 rapid ID test was cancelled by Dr Burnett , and PCR test is negative . less likely COVID infection (4) CANDICE (acute kidney injury) Assessment & Plan: suspect dehydration continue IV fluid avoid nephrotoxic's Subjective Constitutional: Reports: no symptoms HEENT: Reports: no symptoms Breasts: Reports: no symptoms Cardiovascular: Reports: no symptoms Gastrointestinal/Abdominal: Reports: no symptoms Genitourinary: Reports: no symptoms Neurologic: Reports: no symptoms Psychiatric: Reports: no symptoms Skin: Reports: no symptoms Endocrine: Reports: no symptoms Hematologic: Reports: no symptoms Musculoskeletal: Reports: no symptoms Allergies: Coded Allergies: No Known Allergies (Unverified , 12/31/19) Objective Vital Signs Last 24 Hour Vital Signs Date Time Temp Pulse Resp B/P (MAP) Pulse Ox O2 Delivery O2 Flow Rate FiO2 01/04/20 17:11 98.1 01/04/20 16:00 97.3 88 18 126/73 (90) 93 01/04/20 12:00 98.1 80 18 124/75 (91) 96 01/04/20 09:00 Nasal Cannula 3.0 01/04/20 08:00 98.2 93 20 119/74 (89) 93 01/04/20 00:00 98.1 92 19 132/71 (91) 99 01/03/20 21:00 Nasal Cannula 3.0 01/03/20 20:00 98.6 99 20 144/82 (102) 100 Height (Feet): 5 Height (Inches): 7.00 Weight (Pounds): 263 General Appearance: WD/WN, no acute distress HEENT: normocephalic, atraumatic, anicteric, mucous membranes moist, PERRL Respiratory/Chest: chest wall non-tender, no respiratory distress, no accessory muscle use, decreased breath sounds, crackles/rales Cardiovascular: normal peripheral pulses, normal rate, regular rhythm, no gallop/murmur, no JVD Abdomen: normal bowel sounds, soft, non tender, no organomegaly, non distended , no mass, no scars Genitourinary: normal external genitalia Extremities: no cyanosis, no clubbing Skin: no rash, no lesions, no ulcers Neurologic/Psychiatric: claims supervisor II-XII grossly normal, alert, responsive Lymphatic: no neck adenopathy Musculoskeletal: normal muscle bulk Microbiology Date/Time Source Procedure Growth Status 01/01/20 22:29 Blood Blood Culture - Preliminary NO GROWTH AFTER 48 HOURS Resulted 01/01/20 22:15 Blood Blood Culture - Preliminary NO GROWTH AFTER 48 HOURS Resulted 01/01/20 23:40 Nasopharynx Coronavirus COVID-19 PCR ([facility]) - Final Complete Current Medications Medications (Trade) Dose Ordered Sig/Jorge Alberto Route PRN Reason Start Time Stop Time Status Last Admin Dose Admin Acetaminophen (Tylenol) 650 mg Q4H PRN ORAL Mild Pain (Pain Scale 1-3) 01/03/20 13:00 01/31/20 12:59 01/03/20 16:24 Acetaminophen (Tylenol) 650 mg Q4H PRN ORAL Temp >100.5 01/03/20 13:00 02/01/20 12:59 Acetaminophen/ Hydrocodone Bitart ([place] 5/325) 1 tab Q4H PRN ORAL Moderate Pain (Pain Scale 4-6) 01/03/20 13:00 01/08/20 12:59 01/04/20 09:00 Albuterol Sulfate (Proventil MDI) 2 puff Q4H PRN INH Shortness of Breath 01/03/20 13:00 03/31/20 12:59 Enoxaparin Sodium (Lovenox) 40 mg EVERY 12 HOURS SUBQ 01/03/20 21:00 03/31/20 08:59 01/04/20 08:30 Ketorolac Tromethamine (Toradol 30mg) 30 mg BIDPRN PRN IV For Pain 01/04/20 15:30 01/09/20 15:29 01/04/20 16:41 Ondansetron HCl (Zofran ODT) 4 mg Q4H PRN ORAL Nausea & Vomiting 01/03/20 22:45 02/02/20 22:44 Ondansetron HCl (Zofran) 4 mg EVERY 4 HOURS PRN IVP Nausea & Vomiting 01/03/20 23:00 02/02/20 22:44 01/04/20 11:26 Pantoprazole (Protonix) 40 mg DAILY ORAL 01/04/20 09:00 01/31/20 08:59 01/04/20 08:29 Piperacillin Sod/ Tazobactam Sod 3.375 gm/Sodium Chloride 110 ml @ 27.5 mls/hr Q8H IVPB 01/04/20 02:00 01/11/20 01:59 01/04/20 11:22 Vancomycin HCl (Vanco pharmacy to dose) 1 ea DAILY PRN MISC rx protocol 01/03/20 13:00 02/02/20 12:59 Vancomycin HCl 1 gm/Dextrose 275 ml @ 183.708 mls/hr Q8H IVPB 01/04/20 00:00 01/09/20 00:00 01/04/20 17:04 Zolpidem Tartrate (Ambien) 5 mg HSPRN PRN ORAL Insomnia 01/03/20 21:00 01/10/20 20:59 01/04/20 01:25 Carol Ann Davis M.D. Jan 04, 2020 18:11
[2020-01-04 20:06] VITALS: BP 127/74
--- NOTE | 2020-01-04 20:18 | Cardiology Progress Note ---
Assessment/Plan Assessment/Plan 1. Shortness of breath, due to multilobar pneumonia. Normal brain natriuretic peptide essentially ruled out acute congestive heart failure. COVID-19 infection is ruled out. 2. Sinus tachycardia, resolved. 2. Acute kidney injury, resolved. Subjective Subjective No cardiac events reported. Objective Last 24 Hour Vital Signs Date Time Temp Pulse Resp B/P (MAP) Pulse Ox O2 Delivery O2 Flow Rate FiO2 01/04/20 20:06 98.1 86 16 127/74 (91) 94 01/04/20 17:11 98.1 01/04/20 16:00 97.3 88 18 126/73 (90) 93 01/04/20 12:00 98.1 80 18 124/75 (91) 96 01/04/20 09:00 Nasal Cannula 3.0 01/04/20 08:00 98.2 93 20 119/74 (89) 93 01/04/20 00:00 98.1 92 19 132/71 (91) 99 01/03/20 21:00 Nasal Cannula 3.0 Intake and Output 01/03/20 01/04/20 19:00 07:00 Intake Total 900.0 ml 745.000 ml Balance 900.0 ml 745.000 ml Intake Oral 570 ml 360 ml IV Total 330.0 ml 385.000 ml # Voids 3 4 # Bowel Movements 1 Microbiology Date/Time Source Procedure Growth Status 01/01/20 22:29 Blood Blood Culture - Preliminary NO GROWTH AFTER 48 HOURS Resulted 01/01/20 22:15 Blood Blood Culture - Preliminary NO GROWTH AFTER 48 HOURS Resulted 01/01/20 23:40 Nasopharynx Coronavirus COVID-19 PCR ([facility]) - Final Complete Objective HEENT: Atraumatic and normocephalic. Anicteric. Pupils are equal, round, and reactive to light and accommodation. Extraocular muscles intact. NECK: No JVD, No carotid bruit, carotid upstroke 2+ B/L. CVS: Normal S1S2, tachycardia, regular rate and rhythm, no murmurs, gallops or rubs. ABDOMEN: Soft, nontender, nondistended. No hepatosplenomegaly. Positive bowel sounds. EXTREMITIES: No evidence of edema, clubbing, or cyanosis. Genaro Barrett MD Jan 04, 2020 20:18
[2020-01-04] MEDS: SUMAtriptan 50mg tab ORAL PRN (22:13)
[2020-01-05] MEDS: Piperacillin/Tazobactam 3.375 GM in NS 110 ML IVPB SCH ×3 (02:00→17:15)
[2020-01-05 04:00] VITALS: BP 134/84
[2020-01-05 06:22] LABS: BASOPHILS % (AUTO) 0.8 % (0.0-2.0); HEMATOCRIT 36.7 % (37.0-47.0); HEMOGLOBIN 11.5 G/DL (12.0-16.0); LYMPHOCYTES % (AUTO) 15.4 % (20.0-45.0); MEAN CORPUSCULAR VOLUME 95 FL (80-99); MONOCYTES % (AUTO) 6.3 % (1.0-10.0); NEUTROPHILS % (AUTO) 73.5 % (45.0-75.0); PLATELET COUNT 218 K/UL (150-450); RED BLOOD COUNT 3.85 M/UL (4.20-5.40); RED CELL DISTRIBUTION WIDTH 12.8 % (11.6-14.8); WHITE BLOOD COUNT 9.9 K/UL (4.8-10.8)
[2020-01-05 07:13] LABS: ALANINE AMINOTRANSFERASE 24 U/L (12-78); ALBUMIN 2.6 G/DL (3.4-5.0); ALBUMIN/GLOBULIN RATIO 0.6 (1.0-2.7); ALKALINE PHOSPHATASE 73 U/L (46-116); ANION GAP 7 mmol/L (5-15); ASPARTATE AMINO TRANSFERASE 12 U/L (15-37); BILIRUBIN,TOTAL 0.4 MG/DL (0.2-1.0); BLOOD UREA NITROGEN 15 mg/dL (7-18); CALCIUM 9.1 MG/DL (8.5-10.1); CARBON DIOXIDE 31 MMOL/L (21-32); CHLORIDE 104 MMOL/L (98-107); CREATININE 1.1 MG/DL (0.55-1.30); PHOSPHORUS 3.7 MG/DL (2.5-4.9); POTASSIUM 3.8 MMOL/L (3.5-5.1); SODIUM 142 MMOL/L (136-145)
[2020-01-05 08:05] VITALS: BP 130/81
[2020-01-05] MEDS: Enoxaparin 40mg Inj SUBQ SCH ×2 (08:11→21:29)
--- NOTE | 2020-01-05 09:57 | Pulmonology Progress Note ---
Subjective ROS Limited/Unobtainable: No Interval Events: no further fevers Constitutional: Reports: no symptoms HEENT: Repors: no symptoms Respiratory: Reports: no symptoms Cardiovascular: Reports: no symptoms Gastrointestinal/Abdominal: Reports: no symptoms Genitourinary: Reports: no symptoms Psychiatric: Reports: no symptoms Skin: Reports: no symptoms Musculoskeletal: Reports: no symptoms Allergies: Coded Allergies: No Known Allergies (Unverified , 12/31/19) Objective Last 24 Hour Vital Signs Date Time Temp Pulse Resp B/P (MAP) Pulse Ox O2 Delivery O2 Flow Rate FiO2 01/05/20 08:10 Nasal Cannula 2.0 01/05/20 08:05 98.0 96 18 130/81 (97) 93 01/05/20 04:00 97.9 93 18 134/84 (101) 92 01/04/20 21:14 Room Air 01/04/20 20:06 98.1 86 16 127/74 (91) 94 01/04/20 17:11 98.1 01/04/20 16:00 97.3 88 18 126/73 (90) 93 01/04/20 12:00 98.1 80 18 124/75 (91) 96 Intake and Output 01/04/20 01/05/20 19:00 07:00 Intake Total 1197.416 ml 882.5 ml Balance 1197.416 ml 882.5 ml Intake Oral 720 ml 800 ml IV Total 477.416 ml 82.5 ml # Voids 5 3 General Appearance: no acute distress HEENT: normocephalic Respiratory: chest wall non-tender, decreased breath sounds Cardiovascular: normal peripheral pulses Abdomen: normal bowel sounds Laboratory Tests 01/05/20 05:25: White Blood Count 9.9, Red Blood Count 3.85L, Hemoglobin 11.5L, Hematocrit 36.7L , Mean Corpuscular Volume 95, Mean Corpuscular Hemoglobin 30.0, Mean Corpuscular Hemoglobin Concent 31.4L, Red Cell Distribution Width 12.8, Platelet Count 218, Mean Platelet Volume 7.7, Neutrophils (%) (Auto) 73.5, Lymphocytes (%) (Auto) 15.4L, Monocytes (%) (Auto) 6.3, Eosinophils (%) (Auto) 4.0H, Basophils (%) (Auto) 0.8, Sodium Level 142, Potassium Level 3.8, Chloride Level 104, Carbon Dioxide Level 31, Anion Gap 7, Blood Urea Nitrogen 15, Creatinine 1.1, Estimat Glomerular Filtration Rate 51.9, Glucose Level 102, Calcium Level 9.1, Phosphorus Level 3.7, Total Bilirubin 0.4, Aspartate Amino Transf (AST/SGOT) 12L, Alanine Aminotransferase (ALT/SGPT) 24, Alkaline Phosphatase 73, C-Reactive Protein, Quantitative 17.4H, Total Protein 6.9, Albumin 2.6L, Globulin 4.3, Albumin/Globulin Ratio 0.6L Current Medications Medications (Trade) Dose Ordered Sig/Jorge Alberto Route PRN Reason Start Time Stop Time Status Last Admin Dose Admin Acetaminophen (Tylenol) 650 mg Q4H PRN ORAL Mild Pain (Pain Scale 1-3) 01/03/20 13:00 01/31/20 12:59 01/03/20 16:24 Acetaminophen (Tylenol) 650 mg Q4H PRN ORAL Temp >100.5 01/03/20 13:00 02/01/20 12:59 Acetaminophen/ Hydrocodone Bitart ([place] 5/325) 1 tab Q4H PRN ORAL Moderate Pain (Pain Scale 4-6) 01/03/20 13:00 01/08/20 12:59 01/04/20 09:00 Albuterol Sulfate (Proventil MDI) 2 puff Q4H PRN INH Shortness of Breath 01/03/20 13:00 03/31/20 12:59 Enoxaparin Sodium (Lovenox) 40 mg EVERY 12 HOURS SUBQ 01/03/20 21:00 03/31/20 08:59 01/05/20 08:11 Ketorolac Tromethamine (Toradol 30mg) 30 mg BIDPRN PRN IV For Pain 01/04/20 15:30 01/09/20 15:29 01/04/20 16:41 Ondansetron HCl (Zofran ODT) 4 mg Q4H PRN ORAL Nausea & Vomiting 01/03/20 22:45 02/02/20 22:44 Ondansetron HCl (Zofran) 4 mg EVERY 4 HOURS PRN IVP Nausea & Vomiting 01/03/20 23:00 02/02/20 22:44 01/04/20 11:26 Pantoprazole (Protonix) 40 mg DAILY ORAL 01/04/20 09:00 01/31/20 08:59 01/05/20 08:08 Piperacillin Sod/ Tazobactam Sod 3.375 gm/Sodium Chloride 110 ml @ 27.5 mls/hr Q8H IVPB 01/04/20 02:00 01/11/20 01:59 01/04/20 18:35 Sumatriptan Succinate (Imitrex) 25 mg DAILY PRN ORAL For Pain 01/04/20 21:45 02/03/20 21:44 01/04/20 22:13 Zolpidem Tartrate (Ambien) 5 mg HSPRN PRN ORAL Insomnia 01/03/20 21:00 01/10/20 20:59 01/04/20 01:25 Assessment/Plan Assessment/Plan ASSESSMENT AND PLAN: 1. Shortness of breath. Has multilobar pneumonia 2. Acute kidney injury. Improved 3. Fever noted PLAN Abx per ID Fluids Will follow O2; saturating well on 3L/min o2 Ross Shukla M.D., MD Jan 05, 2020 09:57
[2020-01-05] MEDS: SUMAtriptan 50mg tab ORAL PRN (10:19)
[2020-01-05 12:00] VITALS: BP 148/85
--- NOTE | 2020-01-05 12:32 | Nephrology Progress Note ---
Assessment/Plan Problem List: (1) CANDICE (acute kidney injury) (2) Dehydration (3) Pneumonia Plan January 04: Stable from renal standpoint. Today's labs reviewed. Consultants notes reviewed. January 03: No can panel done today. Stable from renal standpoint of view. Check lab tomorrow. January 02: Patient remains stable from renal standpoint of view. Labs reviewed. White blood cells are down to 14,500. January 01: Patient clinically stable. No blood work done today. Will check on lab tomorrow. Previously: Serum creatinine is now normalized with hydration. White blood cell counts vipul, continue antibiotics per ID. Avoid nephrotoxic's, monitor renal parameters and electrolytes. Subjective ROS Limited/Unobtainable: No Objective Objective Last 24 Hour Vital Signs Date Time Temp Pulse Resp B/P (MAP) Pulse Ox O2 Delivery O2 Flow Rate FiO2 01/05/20 12:00 98.6 82 18 148/85 (106) 92 01/05/20 08:10 Nasal Cannula 2.0 01/05/20 08:05 98.0 96 18 130/81 (97) 93 01/05/20 04:00 97.9 93 18 134/84 (101) 92 01/04/20 21:14 Room Air 01/04/20 20:06 98.1 86 16 127/74 (91) 94 01/04/20 17:11 98.1 01/04/20 16:00 97.3 88 18 126/73 (90) 93 Intake and Output 01/04/20 01/05/20 19:00 07:00 Intake Total 1197.416 ml 882.5 ml Balance 1197.416 ml 882.5 ml Intake Oral 720 ml 800 ml IV Total 477.416 ml 82.5 ml # Voids 5 3 Laboratory Tests 01/05/20 05:25: White Blood Count 9.9, Red Blood Count 3.85L, Hemoglobin 11.5L, Hematocrit 36.7L , Mean Corpuscular Volume 95, Mean Corpuscular Hemoglobin 30.0, Mean Corpuscular Hemoglobin Concent 31.4L, Red Cell Distribution Width 12.8, Platelet Count 218, Mean Platelet Volume 7.7, Neutrophils (%) (Auto) 73.5, Lymphocytes (%) (Auto) 15.4L, Monocytes (%) (Auto) 6.3, Eosinophils (%) (Auto) 4.0H, Basophils (%) (Auto) 0.8, Sodium Level 142, Potassium Level 3.8, Chloride Level 104, Carbon Dioxide Level 31, Anion Gap 7, Blood Urea Nitrogen 15, Creatinine 1.1, Estimat Glomerular Filtration Rate 51.9, Glucose Level 102, Calcium Level 9.1, Phosphorus Level 3.7, Total Bilirubin 0.4, Aspartate Amino Transf (AST/SGOT) 12L, Alanine Aminotransferase (ALT/SGPT) 24, Alkaline Phosphatase 73, C-Reactive Protein, Quantitative 17.4H, Total Protein 6.9, Albumin 2.6L, Globulin 4.3, Albumin/Globulin Ratio 0.6L Height (Feet): 5 Height (Inches): 7.00 Weight (Pounds): 264 General Appearance: no apparent distress Cardiovascular: normal rate Respiratory/Chest: decreased breath sounds Abdomen: soft Objective No change Austin Perry MD Jan 05, 2020 12:32
--- NOTE | 2020-01-05 14:11 | General Progress Note ---
Assessment/Plan Assessment/Plan: S: I am ok O: seems comfortable, no distress, in mild sob PHYSICAL EXAMINATION: HEAD AND NECK: Atraumatic and normocephalic. CHEST: Diffuse bronchial breathing sounds. HEART: S1 and S2. Regular rate and rhythm. ABDOMEN: Soft. No organomegaly. MUSCULOSKELETAL: No gross lateralized motor deficit. NEUROLOGIC: The patient is awake, alert, and oriented x3. Labs: reviewed from today Meds: reviewed and reconciled ASSESSMENT: 1. Sepsis secondary to community-acquired pneumonia. 2. Asthma/COPD. 3. Renal failure, age indeterminate. 4. Abnormal blood sugar. 5. GI and DVT prophylaxes. PLAN OF CARE: current empirical abx current management Monitor Pleural effusion and O2 requirement Subjective Allergies: Coded Allergies: No Known Allergies (Unverified , 12/31/19) Objective Last 24 Hour Vital Signs Date Time Temp Pulse Resp B/P (MAP) Pulse Ox O2 Delivery O2 Flow Rate FiO2 01/05/20 12:00 98.6 82 18 148/85 (106) 92 01/05/20 08:10 Nasal Cannula 2.0 01/05/20 08:05 98.0 96 18 130/81 (97) 93 01/05/20 04:00 97.9 93 18 134/84 (101) 92 01/04/20 21:14 Room Air 01/04/20 20:06 98.1 86 16 127/74 (91) 94 01/04/20 17:11 98.1 01/04/20 16:00 97.3 88 18 126/73 (90) 93 Intake and Output 01/04/20 01/05/20 19:00 07:00 Intake Total 1197.416 ml 882.5 ml Balance 1197.416 ml 882.5 ml Intake Oral 720 ml 800 ml IV Total 477.416 ml 82.5 ml # Voids 5 3 Laboratory Tests 01/05/20 05:25: White Blood Count 9.9, Red Blood Count 3.85L, Hemoglobin 11.5L, Hematocrit 36.7L , Mean Corpuscular Volume 95, Mean Corpuscular Hemoglobin 30.0, Mean Corpuscular Hemoglobin Concent 31.4L, Red Cell Distribution Width 12.8, Platelet Count 218, Mean Platelet Volume 7.7, Neutrophils (%) (Auto) 73.5, Lymphocytes (%) (Auto) 15.4L, Monocytes (%) (Auto) 6.3, Eosinophils (%) (Auto) 4.0H, Basophils (%) (Auto) 0.8, Sodium Level 142, Potassium Level 3.8, Chloride Level 104, Carbon Dioxide Level 31, Anion Gap 7, Blood Urea Nitrogen 15, Creatinine 1.1, Estimat Glomerular Filtration Rate 51.9, Glucose Level 102, Calcium Level 9.1, Phosphorus Level 3.7, Total Bilirubin 0.4, Aspartate Amino Transf (AST/SGOT) 12L, Alanine Aminotransferase (ALT/SGPT) 24, Alkaline Phosphatase 73, C-Reactive Protein, Quantitative 17.4H, Total Protein 6.9, Albumin 2.6L, Globulin 4.3, Albumin/Globulin Ratio 0.6L Height (Feet): 5 Height (Inches): 7.00 Weight (Pounds): 264 Radha Chan MD Jan 05, 2020 14:11
[2020-01-05 16:27] VITALS: BP 140/86
[2020-01-05 20:00] VITALS: BP 141/74
--- NOTE | 2020-01-05 21:17 | Cardiology Progress Note ---
Assessment/Plan Assessment/Plan 1. Shortness of breath, due to multilobar pneumonia. Normal brain natriuretic peptide essentially ruled out acute congestive heart failure. COVID-19 infection is ruled out. 2. Sinus tachycardia, resolved. 2. Acute kidney injury, resolved. Subjective Subjective No cardiac events reported. Objective Last 24 Hour Vital Signs Date Time Temp Pulse Resp B/P (MAP) Pulse Ox O2 Delivery O2 Flow Rate FiO2 01/05/20 16:27 98.8 86 18 140/86 (104) 93 01/05/20 12:00 98.6 82 18 148/85 (106) 92 01/05/20 08:10 Nasal Cannula 2.0 01/05/20 08:05 98.0 96 18 130/81 (97) 93 01/05/20 04:00 97.9 93 18 134/84 (101) 92 Intake and Output 01/04/20 01/05/20 19:00 07:00 Intake Total 1197.416 ml 882.5 ml Balance 1197.416 ml 882.5 ml Intake Oral 720 ml 800 ml IV Total 477.416 ml 82.5 ml # Voids 5 3 Laboratory Tests Test 01/05/20 05:25 White Blood Count 9.9 K/UL (4.8-10.8) Red Blood Count 3.85 M/UL (4.20-5.40) L Hemoglobin 11.5 G/DL (12.0-16.0) L Hematocrit 36.7 % (37.0-47.0) L Mean Corpuscular Volume 95 FL (80-99) Mean Corpuscular Hemoglobin 30.0 PG (27.0-31.0) Mean Corpuscular Hemoglobin Concent 31.4 G/DL (32.0-36.0) L Red Cell Distribution Width 12.8 % (11.6-14.8) Platelet Count 218 K/UL (150-450) Mean Platelet Volume 7.7 FL (6.5-10.1) Neutrophils (%) (Auto) 73.5 % (45.0-75.0) Lymphocytes (%) (Auto) 15.4 % (20.0-45.0) L Monocytes (%) (Auto) 6.3 % (1.0-10.0) Eosinophils (%) (Auto) 4.0 % (0.0-3.0) H Basophils (%) (Auto) 0.8 % (0.0-2.0) Sodium Level 142 MMOL/L (136-145) Potassium Level 3.8 MMOL/L (3.5-5.1) Chloride Level 104 MMOL/L (98-107) Carbon Dioxide Level 31 MMOL/L (21-32) Anion Gap 7 mmol/L (5-15) Blood Urea Nitrogen 15 mg/dL (7-18) Creatinine 1.1 MG/DL (0.55-1.30) Estimat Glomerular Filtration Rate 51.9 mL/min (>60) Glucose Level 102 MG/DL (74-106) Calcium Level 9.1 MG/DL (8.5-10.1) Phosphorus Level 3.7 MG/DL (2.5-4.9) Total Bilirubin 0.4 MG/DL (0.2-1.0) Aspartate Amino Transf (AST/SGOT) 12 U/L (15-37) L Alanine Aminotransferase (ALT/SGPT) 24 U/L (12-78) Alkaline Phosphatase 73 U/L (46-116) C-Reactive Protein, Quantitative 17.4 mg/dL (0.00-0.90) H Total Protein 6.9 G/DL (6.4-8.2) Albumin 2.6 G/DL (3.4-5.0) L Globulin 4.3 g/dL Albumin/Globulin Ratio 0.6 (1.0-2.7) L Objective HEENT: Atraumatic and normocephalic. Anicteric. Pupils are equal, round, and reactive to light and accommodation. Extraocular muscles intact. NECK: No JVD, No carotid bruit, carotid upstroke 2+ B/L. CVS: Normal S1S2, regular rate and rhythm, no murmurs, gallops or rubs. ABDOMEN: Soft, nontender, nondistended. No hepatosplenomegaly. Positive bowel sounds. EXTREMITIES: No evidence of edema, clubbing, or cyanosis. Genaro Barrett MD Jan 05, 2020 21:16
[2020-01-05] MEDS: Zolpidem 5mg tab ORAL PRN (21:36)
--- NOTE | 2020-01-05 21:43 | Infectious Diseases Prog Note ---
Assessment/Plan Problems: (1) Pneumonia Assessment & Plan: with bilateral multifocal infiltration, and NEGATIVE PCR FOR COV ID 19 , continue zosyn empirically for now . may switch to oral augmentin for 7 more days (2) Hypoxia Assessment & Plan: suspect due to the above continue oxygen supplement and supportive care , pulmonary is following (3) Suspected 2019 novel coronavirus infection Assessment & Plan: COVID 19 rapid ID test was cancelled by Dr Burnett , and PCR test is negative . less likely COVID infection (4) CANDICE (acute kidney injury) Assessment & Plan: suspect dehydration continue IV fluid avoid nephrotoxic's Subjective Constitutional: Reports: no symptoms HEENT: Reports: no symptoms Respiratory: Reports: no symptoms Breasts: Reports: no symptoms Cardiovascular: Reports: no symptoms Gastrointestinal/Abdominal: Reports: no symptoms Genitourinary: Reports: no symptoms Neurologic: Reports: no symptoms Psychiatric: Reports: no symptoms Skin: Reports: no symptoms Endocrine: Reports: no symptoms Hematologic: Reports: no symptoms Musculoskeletal: Reports: no symptoms Allergies: Coded Allergies: No Known Allergies (Unverified , 12/31/19) Objective Vital Signs Last 24 Hour Vital Signs Date Time Temp Pulse Resp B/P (MAP) Pulse Ox O2 Delivery O2 Flow Rate FiO2 01/05/20 16:27 98.8 86 18 140/86 (104) 93 01/05/20 12:00 98.6 82 18 148/85 (106) 92 01/05/20 08:10 Nasal Cannula 2.0 01/05/20 08:05 98.0 96 18 130/81 (97) 93 01/05/20 04:00 97.9 93 18 134/84 (101) 92 Height (Feet): 5 Height (Inches): 7.00 Weight (Pounds): 264 General Appearance: WD/WN, no acute distress HEENT: normocephalic, atraumatic, anicteric, mucous membranes moist, PERRL Respiratory/Chest: chest wall non-tender, no respiratory distress, no accessory muscle use, decreased breath sounds Cardiovascular: normal peripheral pulses, normal rate, regular rhythm, no JVD Abdomen: normal bowel sounds, soft, non tender, no organomegaly, non distended , no mass, no scars Genitourinary: normal external genitalia Extremities: no cyanosis, no clubbing Skin: no rash, no lesions, no ulcers 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, alert, oriented x 3 Lymphatic: no neck adenopathy, no groin adenopathy Musculoskeletal: normal muscle bulk, no effusion Laboratory Tests Test 01/05/20 05:25 White Blood Count 9.9 K/UL (4.8-10.8) Red Blood Count 3.85 M/UL (4.20-5.40) L Hemoglobin 11.5 G/DL (12.0-16.0) L Hematocrit 36.7 % (37.0-47.0) L Mean Corpuscular Volume 95 FL (80-99) Mean Corpuscular Hemoglobin 30.0 PG (27.0-31.0) Mean Corpuscular Hemoglobin Concent 31.4 G/DL (32.0-36.0) L Red Cell Distribution Width 12.8 % (11.6-14.8) Platelet Count 218 K/UL (150-450) Mean Platelet Volume 7.7 FL (6.5-10.1) Neutrophils (%) (Auto) 73.5 % (45.0-75.0) Lymphocytes (%) (Auto) 15.4 % (20.0-45.0) L Monocytes (%) (Auto) 6.3 % (1.0-10.0) Eosinophils (%) (Auto) 4.0 % (0.0-3.0) H Basophils (%) (Auto) 0.8 % (0.0-2.0) Sodium Level 142 MMOL/L (136-145) Potassium Level 3.8 MMOL/L (3.5-5.1) Chloride Level 104 MMOL/L (98-107) Carbon Dioxide Level 31 MMOL/L (21-32) Anion Gap 7 mmol/L (5-15) Blood Urea Nitrogen 15 mg/dL (7-18) Creatinine 1.1 MG/DL (0.55-1.30) Estimat Glomerular Filtration Rate 51.9 mL/min (>60) Glucose Level 102 MG/DL (74-106) Calcium Level 9.1 MG/DL (8.5-10.1) Phosphorus Level 3.7 MG/DL (2.5-4.9) Total Bilirubin 0.4 MG/DL (0.2-1.0) Aspartate Amino Transf (AST/SGOT) 12 U/L (15-37) L Alanine Aminotransferase (ALT/SGPT) 24 U/L (12-78) Alkaline Phosphatase 73 U/L (46-116) C-Reactive Protein, Quantitative 17.4 mg/dL (0.00-0.90) H Total Protein 6.9 G/DL (6.4-8.2) Albumin 2.6 G/DL (3.4-5.0) L Globulin 4.3 g/dL Albumin/Globulin Ratio 0.6 (1.0-2.7) L Current Medications Medications (Trade) Dose Ordered Sig/Jorge Alberto Route PRN Reason Start Time Stop Time Status Last Admin Dose Admin Acetaminophen (Tylenol) 650 mg Q4H PRN ORAL Mild Pain (Pain Scale 1-3) 01/03/20 13:00 01/31/20 12:59 01/03/20 16:24 Acetaminophen (Tylenol) 650 mg Q4H PRN ORAL Temp >100.5 01/03/20 13:00 02/01/20 12:59 Acetaminophen/ Hydrocodone Bitart ([place] 5/325) 1 tab Q4H PRN ORAL Moderate Pain (Pain Scale 4-6) 01/03/20 13:00 01/08/20 12:59 01/04/20 09:00 Albuterol Sulfate (Proventil MDI) 2 puff Q4H PRN INH Shortness of Breath 01/03/20 13:00 03/31/20 12:59 Enoxaparin Sodium (Lovenox) 40 mg EVERY 12 HOURS SUBQ 01/03/20 21:00 03/31/20 08:59 01/05/20 21:29 Ketorolac Tromethamine (Toradol 30mg) 30 mg BIDPRN PRN IV For Pain 01/04/20 15:30 01/09/20 15:29 01/04/20 16:41 Ondansetron HCl (Zofran ODT) 4 mg Q4H PRN ORAL Nausea & Vomiting 01/03/20 22:45 02/02/20 22:44 Ondansetron HCl (Zofran) 4 mg EVERY 4 HOURS PRN IVP Nausea & Vomiting 01/03/20 23:00 02/02/20 22:44 01/04/20 11:26 Pantoprazole (Protonix) 40 mg DAILY ORAL 01/04/20 09:00 01/31/20 08:59 01/05/20 08:08 Piperacillin Sod/ Tazobactam Sod 3.375 gm/Sodium Chloride 110 ml @ 27.5 mls/hr Q8H IVPB 01/04/20 02:00 01/11/20 01:59 01/05/20 17:15 Sumatriptan Succinate (Imitrex) 25 mg DAILY PRN ORAL For Pain 01/04/20 21:45 02/03/20 21:44 01/05/20 10:19 Zolpidem Tartrate (Ambien) 5 mg HSPRN PRN ORAL Insomnia 01/03/20 21:00 01/10/20 20:59 01/05/20 21:36 Carol Ann Davis M.D. Jan 05, 2020 21:43
[2020-01-06] VITALS: BP 156/80
[2020-01-06] MEDS: Piperacillin/Tazobactam 3.375 GM in NS 110 ML IVPB SCH ×3 (02:13→18:08)
[2020-01-06 04:00] VITALS: BP 147/76
[2020-01-06 08:00] VITALS: BP 140/85
[2020-01-06] MEDS: Enoxaparin 40mg Inj SUBQ SCH ×2 (09:32→21:20)
--- NOTE | 2020-01-06 10:13 | Nephrology Progress Note ---
Assessment/Plan Problem List: (1) CANDICE (acute kidney injury) (2) Dehydration (3) Pneumonia Plan January 05: Remains stable from renal standpoint of view. No labs done today. January 04: Stable from renal standpoint. Today's labs reviewed. Consultants notes reviewed. January 03: No can panel done today. Stable from renal standpoint of view. Check lab tomorrow. January 02: Patient remains stable from renal standpoint of view. Labs reviewed. White blood cells are down to 14,500. January 01: Patient clinically stable. No blood work done today. Will check on lab tomorrow. Previously: Serum creatinine is now normalized with hydration. White blood cell counts vipul, continue antibiotics per ID. Avoid nephrotoxic's, monitor renal parameters and electrolytes. Subjective ROS Limited/Unobtainable: No Objective Objective Last 24 Hour Vital Signs Date Time Temp Pulse Resp B/P (MAP) Pulse Ox O2 Delivery O2 Flow Rate FiO2 01/06/20 08:00 97.9 89 22 140/85 (103) 94 01/06/20 04:00 98.1 88 20 147/76 (99) 98 01/06/20 00:00 98.6 92 20 156/80 (105) 93 01/05/20 21:00 Room Air 01/05/20 20:00 98.4 94 20 141/74 (96) 96 01/05/20 16:27 98.8 86 18 140/86 (104) 93 01/05/20 12:00 98.6 82 18 148/85 (106) 92 Intake and Output 01/05/20 01/06/20 19:00 07:00 Intake Total 1030.0 ml 552.5 ml Balance 1030.0 ml 552.5 ml Intake Oral 900 ml IV Total 130.0 ml 192.5 ml Other 360 ml # Voids 4 2 No labs done today Height (Feet): 5 Height (Inches): 7.00 Weight (Pounds): 264 General Appearance: no apparent distress Objective No change Austin Perry MD Jan 06, 2020 10:13
[2020-01-06 12:00] VITALS: BP 147/81
--- NOTE | 2020-01-06 12:40 | General Progress Note ---
Assessment/Plan Assessment/Plan: S: I am ok O: seems comfortable, no distress, in mild sob PHYSICAL EXAMINATION: HEAD AND NECK: Atraumatic and normocephalic. CHEST: Diffuse bronchial breathing sounds. HEART: S1 and S2. Regular rate and rhythm. ABDOMEN: Soft. No organomegaly. MUSCULOSKELETAL: No gross lateralized motor deficit. NEUROLOGIC: The patient is awake, alert, and oriented x3. Labs: reviewed from today Meds: reviewed and reconciled ASSESSMENT: 1. Sepsis secondary to community-acquired pneumonia. 2. Asthma/COPD. 3. Renal failure, age indeterminate. 4. Abnormal blood sugar. 5. GI and DVT prophylaxes. PLAN OF CARE: current empirical abx current management Monitor Pleural effusion and O2 requirement, per Pulmonary Subjective Allergies: Coded Allergies: No Known Allergies (Unverified , 12/31/19) Objective Last 24 Hour Vital Signs Date Time Temp Pulse Resp B/P (MAP) Pulse Ox O2 Delivery O2 Flow Rate FiO2 01/06/20 12:00 97.9 87 22 147/81 (103) 94 01/06/20 10:20 97.9 01/06/20 09:00 Nasal Cannula 2.0 01/06/20 08:00 97.9 89 22 140/85 (103) 94 01/06/20 04:00 98.1 88 20 147/76 (99) 98 01/06/20 00:00 98.6 92 20 156/80 (105) 93 01/05/20 21:00 Room Air 01/05/20 20:00 98.4 94 20 141/74 (96) 96 01/05/20 16:27 98.8 86 18 140/86 (104) 93 Intake and Output 01/05/20 01/06/20 19:00 07:00 Intake Total 1030.0 ml 552.5 ml Balance 1030.0 ml 552.5 ml Intake Oral 900 ml IV Total 130.0 ml 192.5 ml Other 360 ml # Voids 4 2 Height (Feet): 5 Height (Inches): 7.00 Weight (Pounds): 264 Radha Chan MD Jan 06, 2020 12:40
--- NOTE | 2020-01-06 14:22 | Pulmonology Progress Note ---
Subjective ROS Limited/Unobtainable: No Interval Events: no further fevers Constitutional: Reports: no symptoms HEENT: Repors: no symptoms Respiratory: Reports: no symptoms Cardiovascular: Reports: no symptoms Gastrointestinal/Abdominal: Reports: no symptoms Genitourinary: Reports: no symptoms Psychiatric: Reports: no symptoms Skin: Reports: no symptoms Musculoskeletal: Reports: no symptoms Allergies: Coded Allergies: No Known Allergies (Unverified , 12/31/19) Objective Last 24 Hour Vital Signs Date Time Temp Pulse Resp B/P (MAP) Pulse Ox O2 Delivery O2 Flow Rate FiO2 01/06/20 12:00 97.9 87 22 147/81 (103) 94 01/06/20 10:20 97.9 01/06/20 09:00 Nasal Cannula 2.0 01/06/20 08:00 97.9 89 22 140/85 (103) 94 01/06/20 04:00 98.1 88 20 147/76 (99) 98 01/06/20 00:00 98.6 92 20 156/80 (105) 93 01/05/20 21:00 Room Air 01/05/20 20:00 98.4 94 20 141/74 (96) 96 01/05/20 16:27 98.8 86 18 140/86 (104) 93 Intake and Output 01/05/20 01/06/20 19:00 07:00 Intake Total 1030.0 ml 552.5 ml Balance 1030.0 ml 552.5 ml Intake Oral 900 ml IV Total 130.0 ml 192.5 ml Other 360 ml # Voids 4 2 General Appearance: no acute distress HEENT: normocephalic Respiratory: chest wall non-tender, decreased breath sounds Cardiovascular: normal peripheral pulses Abdomen: normal bowel sounds Current Medications Medications (Trade) Dose Ordered Sig/Jorge Alberto Route PRN Reason Start Time Stop Time Status Last Admin Dose Admin Acetaminophen (Tylenol) 650 mg Q4H PRN ORAL Mild Pain (Pain Scale 1-3) 01/03/20 13:00 01/31/20 12:59 01/06/20 09:50 Acetaminophen (Tylenol) 650 mg Q4H PRN ORAL Temp >100.5 01/03/20 13:00 02/01/20 12:59 Acetaminophen/ Hydrocodone Bitart ([place] 5/325) 1 tab Q4H PRN ORAL Moderate Pain (Pain Scale 4-6) 01/03/20 13:00 01/08/20 12:59 01/04/20 09:00 Albuterol Sulfate (Proventil MDI) 2 puff Q4H PRN INH Shortness of Breath 01/03/20 13:00 03/31/20 12:59 01/05/20 21:55 Enoxaparin Sodium (Lovenox) 40 mg EVERY 12 HOURS SUBQ 01/03/20 21:00 03/31/20 08:59 01/06/20 09:32 Ketorolac Tromethamine (Toradol 30mg) 30 mg BIDPRN PRN IV For Pain 01/04/20 15:30 01/09/20 15:29 01/04/20 16:41 Ondansetron HCl (Zofran ODT) 4 mg Q4H PRN ORAL Nausea & Vomiting 01/03/20 22:45 02/02/20 22:44 Ondansetron HCl (Zofran) 4 mg EVERY 4 HOURS PRN IVP Nausea & Vomiting 01/03/20 23:00 02/02/20 22:44 01/04/20 11:26 Pantoprazole (Protonix) 40 mg DAILY ORAL 01/04/20 09:00 01/31/20 08:59 01/06/20 09:32 Piperacillin Sod/ Tazobactam Sod 3.375 gm/Sodium Chloride 110 ml @ 27.5 mls/hr Q8H IVPB 01/04/20 02:00 01/11/20 01:59 01/06/20 09:32 Sumatriptan Succinate (Imitrex) 25 mg DAILY PRN ORAL For Pain 01/04/20 21:45 02/03/20 21:44 01/05/20 10:19 Zolpidem Tartrate (Ambien) 5 mg HSPRN PRN ORAL Insomnia 01/03/20 21:00 01/10/20 20:59 01/05/20 21:36 Assessment/Plan Assessment/Plan ASSESSMENT AND PLAN: 1. Shortness of breath. Has multilobar pneumonia 2. Acute kidney injury. Improved 3. Fever noted PLAN Abx per ID Fluids Will follow O2; saturating well on 3L/min o2 Ross Shukla M.D., MD Jan 06, 2020 14:22
[2020-01-06 16:00] VITALS: BP 151/80
--- NOTE | 2020-01-06 16:21 | Infectious Diseases Prog Note ---
Assessment/Plan Problems: (1) Pneumonia Assessment & Plan: with bilateral multifocal infiltration, and NEGATIVE PCR FOR COV ID 19 , suspect aspiration related due to vomiting, continue zosyn empirically to treat for pneumonia. may switch to oral augmentin for 7 more days (2) Hypoxia Assessment & Plan: suspect due to the above continue oxygen supplement and supportive care , pulmonary is following (3) Suspected 2019 novel coronavirus infection Assessment & Plan: COVID 19 rapid ID test was cancelled by Dr Burnett , and PCR test is negative . less likely COVID infection (4) CANDICE (acute kidney injury) Assessment & Plan: suspect dehydration continue IV fluid avoid nephrotoxic's Subjective Constitutional: Reports: no symptoms HEENT: Reports: no symptoms Respiratory: Reports: dry cough Breasts: Reports: no symptoms Cardiovascular: Reports: no symptoms Gastrointestinal/Abdominal: Reports: no symptoms Genitourinary: Reports: no symptoms Neurologic: Reports: no symptoms Psychiatric: Reports: no symptoms Skin: Reports: no symptoms Endocrine: Reports: no symptoms Hematologic: Reports: no symptoms Musculoskeletal: Reports: no symptoms Allergies: Coded Allergies: No Known Allergies (Unverified , 12/31/19) Objective Vital Signs Last 24 Hour Vital Signs Date Time Temp Pulse Resp B/P (MAP) Pulse Ox O2 Delivery O2 Flow Rate FiO2 01/06/20 12:00 97.9 87 22 147/81 (103) 94 01/06/20 10:20 97.9 01/06/20 09:00 Nasal Cannula 2.0 01/06/20 08:00 97.9 89 22 140/85 (103) 94 01/06/20 04:00 98.1 88 20 147/76 (99) 98 01/06/20 00:00 98.6 92 20 156/80 (105) 93 01/05/20 21:00 Room Air 01/05/20 20:00 98.4 94 20 141/74 (96) 96 01/05/20 16:27 98.8 86 18 140/86 (104) 93 Height (Feet): 5 Height (Inches): 7.00 Weight (Pounds): 264 General Appearance: WD/WN, no acute distress HEENT: normocephalic, atraumatic, anicteric, mucous membranes moist, PERRL Respiratory/Chest: chest wall non-tender, lungs clear, normal breath sounds, no respiratory distress, no accessory muscle use Cardiovascular: normal peripheral pulses, normal rate, regular rhythm, no gallop/murmur, no JVD Abdomen: normal bowel sounds, soft, non tender, no organomegaly, non distended , no mass, no scars Genitourinary: normal external genitalia Extremities: no cyanosis, no clubbing Skin: no rash, no lesions, no ulcers Neurologic/Psychiatric: laundry folder II-XII grossly normal, alert, oriented x 3, responsive Lymphatic: no neck adenopathy, no groin adenopathy Musculoskeletal: normal muscle bulk, no effusion Current Medications Medications (Trade) Dose Ordered Sig/Jorge Alberto Route PRN Reason Start Time Stop Time Status Last Admin Dose Admin Acetaminophen (Tylenol) 650 mg Q4H PRN ORAL Mild Pain (Pain Scale 1-3) 01/03/20 13:00 01/31/20 12:59 01/06/20 09:50 Acetaminophen (Tylenol) 650 mg Q4H PRN ORAL Temp >100.5 01/03/20 13:00 02/01/20 12:59 Acetaminophen/ Hydrocodone Bitart ([place] 5/325) 1 tab Q4H PRN ORAL Moderate Pain (Pain Scale 4-6) 01/03/20 13:00 01/08/20 12:59 01/04/20 09:00 Albuterol Sulfate (Proventil MDI) 2 puff Q4H PRN INH Shortness of Breath 01/03/20 13:00 03/31/20 12:59 01/05/20 21:55 Enoxaparin Sodium (Lovenox) 40 mg EVERY 12 HOURS SUBQ 01/03/20 21:00 03/31/20 08:59 01/06/20 09:32 Ketorolac Tromethamine (Toradol 30mg) 30 mg BIDPRN PRN IV For Pain 01/04/20 15:30 01/09/20 15:29 01/04/20 16:41 Ondansetron HCl (Zofran ODT) 4 mg Q4H PRN ORAL Nausea & Vomiting 01/03/20 22:45 02/02/20 22:44 Ondansetron HCl (Zofran) 4 mg EVERY 4 HOURS PRN IVP Nausea & Vomiting 01/03/20 23:00 02/02/20 22:44 01/04/20 11:26 Pantoprazole (Protonix) 40 mg DAILY ORAL 01/04/20 09:00 01/31/20 08:59 01/06/20 09:32 Piperacillin Sod/ Tazobactam Sod 3.375 gm/Sodium Chloride 110 ml @ 27.5 mls/hr Q8H IVPB 01/04/20 02:00 01/11/20 01:59 01/06/20 09:32 Sumatriptan Succinate (Imitrex) 25 mg DAILY PRN ORAL For Pain 01/04/20 21:45 02/03/20 21:44 01/05/20 10:19 Zolpidem Tartrate (Ambien) 5 mg HSPRN PRN ORAL Insomnia 01/03/20 21:00 01/10/20 20:59 01/05/20 21:36 Carol Ann Davis M.D. Jan 06, 2020 16:21
[2020-01-06 20:00] VITALS: BP 159/58
[2020-01-07] VITALS: BP 146/71
[2020-01-07] MEDS: Piperacillin/Tazobactam 3.375 GM in NS 110 ML IVPB SCH ×3 (02:00→17:33)
[2020-01-07 04:00] VITALS: BP 155/88
--- NOTE | 2020-01-07 05:33 | Pulmonology Progress Note ---
Subjective ROS Limited/Unobtainable: No Interval Events: no further fevers Constitutional: Reports: no symptoms HEENT: Repors: no symptoms Respiratory: Reports: no symptoms Cardiovascular: Reports: no symptoms Gastrointestinal/Abdominal: Reports: no symptoms Genitourinary: Reports: no symptoms Psychiatric: Reports: no symptoms Skin: Reports: no symptoms Musculoskeletal: Reports: no symptoms Allergies: Coded Allergies: No Known Allergies (Unverified , 12/31/19) Objective Last 24 Hour Vital Signs Date Time Temp Pulse Resp B/P (MAP) Pulse Ox O2 Delivery O2 Flow Rate FiO2 01/07/20 04:00 98.2 88 22 155/88 (110) 93 01/07/20 00:00 100.0 88 20 146/71 (96) 96 01/06/20 21:00 Nasal Cannula 2.0 01/06/20 20:00 99.9 98 24 159/58 (91) 94 01/06/20 16:00 98.4 82 22 151/80 (103) 96 01/06/20 12:00 97.9 87 22 147/81 (103) 94 01/06/20 10:20 97.9 01/06/20 09:00 Nasal Cannula 2.0 01/06/20 08:00 97.9 89 22 140/85 (103) 94 Intake and Output 01/06/20 01/07/20 19:00 07:00 Intake Total 830.0 ml 110.0 ml Balance 830.0 ml 110.0 ml Intake Oral 720 ml IV Total 110.0 ml 110.0 ml # Voids 3 General Appearance: no acute distress HEENT: normocephalic Respiratory: chest wall non-tender, decreased breath sounds Cardiovascular: normal peripheral pulses Abdomen: normal bowel sounds Current Medications Medications (Trade) Dose Ordered Sig/Jorge Alberto Route PRN Reason Start Time Stop Time Status Last Admin Dose Admin Acetaminophen (Tylenol) 650 mg Q4H PRN ORAL Mild Pain (Pain Scale 1-3) 01/03/20 13:00 01/31/20 12:59 01/06/20 09:50 Acetaminophen (Tylenol) 650 mg Q4H PRN ORAL Temp >100.5 01/03/20 13:00 02/01/20 12:59 Acetaminophen/ Hydrocodone Bitart ([place] 5/325) 1 tab Q4H PRN ORAL Moderate Pain (Pain Scale 4-6) 01/03/20 13:00 01/08/20 12:59 01/04/20 09:00 Albuterol Sulfate (Proventil MDI) 2 puff Q4H PRN INH Shortness of Breath 01/03/20 13:00 03/31/20 12:59 01/05/20 21:55 Enoxaparin Sodium (Lovenox) 40 mg EVERY 12 HOURS SUBQ 01/03/20 21:00 03/31/20 08:59 01/06/20 21:20 Ketorolac Tromethamine (Toradol 30mg) 30 mg BIDPRN PRN IV For Pain 01/04/20 15:30 01/09/20 15:29 01/04/20 16:41 Ondansetron HCl (Zofran ODT) 4 mg Q4H PRN ORAL Nausea & Vomiting 01/03/20 22:45 02/02/20 22:44 Ondansetron HCl (Zofran) 4 mg EVERY 4 HOURS PRN IVP Nausea & Vomiting 01/03/20 23:00 02/02/20 22:44 01/04/20 11:26 Pantoprazole (Protonix) 40 mg DAILY ORAL 01/04/20 09:00 01/31/20 08:59 01/06/20 09:32 Piperacillin Sod/ Tazobactam Sod 3.375 gm/Sodium Chloride 110 ml @ 27.5 mls/hr Q8H IVPB 01/04/20 02:00 01/11/20 01:59 01/07/20 02:00 Sumatriptan Succinate (Imitrex) 25 mg DAILY PRN ORAL For Pain 01/04/20 21:45 02/03/20 21:44 01/05/20 10:19 Zolpidem Tartrate (Ambien) 5 mg HSPRN PRN ORAL Insomnia 01/03/20 21:00 01/10/20 20:59 01/05/20 21:36 Assessment/Plan Assessment/Plan ASSESSMENT AND PLAN: 1. Shortness of breath. Has multilobar pneumonia 2. Acute kidney injury. Improved 3. Fever noted PLAN Abx per ID Fluids Will follow O2; saturating well on 3L/min o2 Ross Shukla M.D., MD Jan 07, 2020 05:33
[2020-01-07 08:45] VITALS: BP 114/66
[2020-01-07] MEDS: Enoxaparin 40mg Inj SUBQ SCH ×2 (08:51→20:20)
--- NOTE | 2020-01-07 10:54 | General Progress Note ---
Assessment/Plan Assessment/Plan: S: I am ok O: seems comfortable, no distress, in mild sob PHYSICAL EXAMINATION: HEAD AND NECK: Atraumatic and normocephalic. CHEST: Diffuse bronchial breathing sounds. HEART: S1 and S2. Regular rate and rhythm. ABDOMEN: Soft. No organomegaly. MUSCULOSKELETAL: No gross lateralized motor deficit. NEUROLOGIC: The patient is awake, alert, and oriented x3. Labs: reviewed from today Meds: reviewed and reconciled ASSESSMENT: 1. Sepsis secondary to community-acquired pneumonia. 2. Asthma/COPD. 3. Renal failure, age indeterminate. 4. Abnormal blood sugar. 5. GI and DVT prophylaxes. PLAN OF CARE: current empirical abx current management Monitor Pleural effusion and O2 requirement, per Pulmonary Subjective Allergies: Coded Allergies: No Known Allergies (Unverified , 12/31/19) Objective Last 24 Hour Vital Signs Date Time Temp Pulse Resp B/P (MAP) Pulse Ox O2 Delivery O2 Flow Rate FiO2 01/07/20 09:00 Nasal Cannula 2.0 01/07/20 08:45 98.4 89 17 114/66 (82) 94 01/07/20 04:00 98.2 88 22 155/88 (110) 93 01/07/20 00:00 100.0 88 20 146/71 (96) 96 01/06/20 21:00 Nasal Cannula 2.0 01/06/20 20:00 99.9 98 24 159/58 (91) 94 01/06/20 16:00 98.4 82 22 151/80 (103) 96 01/06/20 12:00 97.9 87 22 147/81 (103) 94 Intake and Output 01/06/20 01/07/20 19:00 07:00 Intake Total 830.0 ml 580.0 ml Balance 830.0 ml 580.0 ml Intake Oral 720 ml IV Total 110.0 ml 220.0 ml Other 360 ml # Voids 3 2 Height (Feet): 5 Height (Inches): 7.00 Weight (Pounds): 264 Radha Chan MD Jan 07, 2020 10:54
[2020-01-07 12:00] VITALS: BP 141/82
--- NOTE | 2020-01-07 13:40 | Nephrology Progress Note ---
Assessment/Plan Problem List: (1) CANDICE (acute kidney injury) (2) Dehydration (3) Pneumonia Plan January 06: No labs done today. Will check lab tomorrow. Stable from renal standpoint of view. January 05: Remains stable from renal standpoint of view. No labs done today. January 04: Stable from renal standpoint. Today's labs reviewed. Consultants notes reviewed. January 03: No can panel done today. Stable from renal standpoint of view. Check lab tomorrow. January 02: Patient remains stable from renal standpoint of view. Labs reviewed. White blood cells are down to 14,500. January 01: Patient clinically stable. No blood work done today. Will check on lab tomorrow. Previously: Serum creatinine is now normalized with hydration. White blood cell counts vipul, continue antibiotics per ID. Avoid nephrotoxic's, monitor renal parameters and electrolytes. Subjective ROS Limited/Unobtainable: No Constitutional: Reports: malaise Objective Objective Last 24 Hour Vital Signs Date Time Temp Pulse Resp B/P (MAP) Pulse Ox O2 Delivery O2 Flow Rate FiO2 01/07/20 12:00 98.2 82 18 141/82 (101) 95 01/07/20 09:00 Nasal Cannula 2.0 01/07/20 08:45 98.4 89 17 114/66 (82) 94 01/07/20 04:00 98.2 88 22 155/88 (110) 93 01/07/20 00:00 100.0 88 20 146/71 (96) 96 01/06/20 21:00 Nasal Cannula 2.0 01/06/20 20:00 99.9 98 24 159/58 (91) 94 01/06/20 16:00 98.4 82 22 151/80 (103) 96 Intake and Output 01/06/20 01/07/20 19:00 07:00 Intake Total 830.0 ml 580.0 ml Balance 830.0 ml 580.0 ml Intake Oral 720 ml IV Total 110.0 ml 220.0 ml Other 360 ml # Voids 3 2 No labs done today Height (Feet): 5 Height (Inches): 7.00 Weight (Pounds): 264 General Appearance: no apparent distress Abdomen: soft Objective No change Austin Perry MD Jan 07, 2020 13:40
--- NOTE | 2020-01-07 14:40 | Cardiology Progress Note ---
Assessment/Plan Assessment/Plan 1. Shortness of breath, due to multilobar pneumonia. Normal brain natriuretic peptide essentially ruled out acute congestive heart failure. COVID-19 infection is ruled out. 2. Sinus tachycardia, resolved. 3. Acute kidney injury, resolved. 4. HTN, start low dose amlodipine. Subjective Subjective No cardiac events reported. Denies chest pain or SOB. Objective Last 24 Hour Vital Signs Date Time Temp Pulse Resp B/P (MAP) Pulse Ox O2 Delivery O2 Flow Rate FiO2 01/07/20 12:00 98.2 82 18 141/82 (101) 95 01/07/20 09:00 Nasal Cannula 2.0 01/07/20 08:45 98.4 89 17 114/66 (82) 94 01/07/20 04:00 98.2 88 22 155/88 (110) 93 01/07/20 00:00 100.0 88 20 146/71 (96) 96 01/06/20 21:00 Nasal Cannula 2.0 01/06/20 20:00 99.9 98 24 159/58 (91) 94 01/06/20 16:00 98.4 82 22 151/80 (103) 96 Intake and Output 01/06/20 01/07/20 19:00 07:00 Intake Total 830.0 ml 580.0 ml Balance 830.0 ml 580.0 ml Intake Oral 720 ml IV Total 110.0 ml 220.0 ml Other 360 ml # Voids 3 2 Objective HEENT: Atraumatic and normocephalic. Anicteric. Pupils are equal, round, and reactive to light and accommodation. Extraocular muscles intact. NECK: No JVD, No carotid bruit, carotid upstroke 2+ B/L. CVS: Normal S1S2, regular rate and rhythm, no murmurs, gallops or rubs. ABDOMEN: Soft, nontender, nondistended. No hepatosplenomegaly. Positive bowel sounds. EXTREMITIES: No evidence of edema, clubbing, or cyanosis. Genaro Barrett MD Jan 07, 2020 14:40
[2020-01-07 16:00] VITALS: BP 146/84
--- NOTE | 2020-01-07 19:13 | Infectious Diseases Prog Note ---
Assessment/Plan Problems: (1) Pneumonia Assessment & Plan: with bilateral multifocal infiltration, and NEGATIVE PCR FOR COV ID 19 , suspect aspiration related due to vomiting, continue zosyn empirically to treat for pneumonia. may switch to oral augmentin for 7 more days (2) Hypoxia Assessment & Plan: suspect due to the above continue oxygen supplement and supportive care , pulmonary is following (3) Suspected 2019 novel coronavirus infection Assessment & Plan: COVID 19 rapid ID test was cancelled by Dr Burnett , and PCR test is negative . less likely COVID infection (4) CANDICE (acute kidney injury) Assessment & Plan: suspect dehydration continue IV fluid avoid nephrotoxic's Subjective Constitutional: Reports: no symptoms HEENT: Reports: no symptoms Respiratory: Reports: no symptoms Breasts: Reports: no symptoms Cardiovascular: Reports: no symptoms Gastrointestinal/Abdominal: Reports: no symptoms Genitourinary: Reports: no symptoms Neurologic: Reports: no symptoms Psychiatric: Reports: no symptoms Skin: Reports: no symptoms Endocrine: Reports: no symptoms Hematologic: Reports: no symptoms Musculoskeletal: Reports: no symptoms Allergies: Coded Allergies: No Known Allergies (Unverified , 12/31/19) Objective Last 24 Hour Vital Signs Date Time Temp Pulse Resp B/P (MAP) Pulse Ox O2 Delivery O2 Flow Rate FiO2 01/07/20 17:23 98.4 01/07/20 17:20 98.2 01/07/20 16:00 100.0 88 20 146/84 (104) 96 01/07/20 14:57 82 141/82 01/07/20 12:00 98.2 82 18 141/82 (101) 95 01/07/20 09:00 Nasal Cannula 2.0 01/07/20 08:45 98.4 89 17 114/66 (82) 94 01/07/20 04:00 98.2 88 22 155/88 (110) 93 01/07/20 00:00 100.0 88 20 146/71 (96) 96 01/06/20 21:00 Nasal Cannula 2.0 01/06/20 20:00 99.9 98 24 159/58 (91) 94 Height (Feet): 5 Height (Inches): 7.00 Weight (Pounds): 264 General Appearance: WD/WN, no acute distress HEENT: normocephalic, atraumatic, anicteric, mucous membranes moist, PERRL Respiratory/Chest: chest wall non-tender, lungs clear, normal breath sounds, no respiratory distress, no accessory muscle use Cardiovascular: normal peripheral pulses, normal rate, regular rhythm, no gallop/murmur, no JVD Abdomen: normal bowel sounds, soft, non tender, no organomegaly, non distended , no mass, no scars Extremities: no cyanosis, no clubbing Skin: no rash, no lesions Neurologic/Psychiatric: disk 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 II-XII 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 normal, alert, responsive Lymphatic: no neck adenopathy, no groin adenopathy Musculoskeletal: normal muscle bulk Current Medications Medications (Trade) Dose Ordered Sig/Jorge Alberto Route PRN Reason Start Time Stop Time Status Last Admin Dose Admin Acetaminophen (Tylenol) 650 mg Q4H PRN ORAL Mild Pain (Pain Scale 1-3) 01/03/20 13:00 01/31/20 12:59 01/06/20 09:50 Acetaminophen (Tylenol) 650 mg Q4H PRN ORAL Temp >100.5 01/03/20 13:00 02/01/20 12:59 Acetaminophen/ Hydrocodone Bitart ([place] 5/325) 1 tab Q4H PRN ORAL Moderate Pain (Pain Scale 4-6) 01/03/20 13:00 01/08/20 12:59 01/04/20 09:00 Albuterol Sulfate (Proventil MDI) 2 puff Q4H PRN INH Shortness of Breath 01/03/20 13:00 03/31/20 12:59 01/05/20 21:55 Amlodipine Besylate (Norvasc) 2.5 mg DAILY ORAL 01/07/20 14:45 02/06/20 14:44 01/07/20 14:57 Enoxaparin Sodium (Lovenox) 40 mg EVERY 12 HOURS SUBQ 01/03/20 21:00 03/31/20 08:59 01/07/20 08:51 Ketorolac Tromethamine (Toradol 30mg) 30 mg BIDPRN PRN IV For Pain 01/04/20 15:30 01/09/20 15:29 01/04/20 16:41 Ondansetron HCl (Zofran ODT) 4 mg Q4H PRN ORAL Nausea & Vomiting 01/03/20 22:45 02/02/20 22:44 Ondansetron HCl (Zofran) 4 mg EVERY 4 HOURS PRN IVP Nausea & Vomiting 01/03/20 23:00 02/02/20 22:44 01/04/20 11:26 Pantoprazole (Protonix) 40 mg DAILY ORAL 01/04/20 09:00 01/31/20 08:59 01/07/20 08:50 Piperacillin Sod/ Tazobactam Sod 3.375 gm/Sodium Chloride 110 ml @ 27.5 mls/hr Q8H IVPB 01/04/20 02:00 01/11/20 01:59 01/07/20 17:33 Sumatriptan Succinate (Imitrex) 25 mg DAILY PRN ORAL For Pain 01/04/20 21:45 02/03/20 21:44 01/05/20 10:19 Zolpidem Tartrate (Ambien) 5 mg HSPRN PRN ORAL Insomnia 01/03/20 21:00 01/10/20 20:59 01/05/20 21:36 Carol Ann Davis M.D. Jan 07, 2020 19:13
[2020-01-07 20:00] VITALS: BP 150/60
[2020-01-07] MEDS: Ketorolac 30mg Inj IV PRN (20:21)
[2020-01-08] VITALS: BP 140/65
[2020-01-08] MEDS: Piperacillin/Tazobactam 3.375 GM in NS 110 ML IVPB SCH ×3 (02:00→17:37)
[2020-01-08 04:00] VITALS: BP 144/80
[2020-01-08 05:55] LABS: BASOPHILS % (AUTO) 1.3 % (0.0-2.0); EOSINOPHILS % (AUTO) 2.5 % (0.0-3.0); HEMOGLOBIN 10.9 G/DL (12.0-16.0); LYMPHOCYTES % (AUTO) 20.4 % (20.0-45.0); MEAN CORPUSCULAR VOLUME 95 FL (80-99); MONOCYTES % (AUTO) 5.5 % (1.0-10.0); NEUTROPHILS % (AUTO) 70.3 % (45.0-75.0); PLATELET COUNT 233 K/UL (150-450); RED BLOOD COUNT 3.59 M/UL (4.20-5.40); RED CELL DISTRIBUTION WIDTH 12.6 % (11.6-14.8); WHITE BLOOD COUNT 10.6 K/UL (4.8-10.8)
[2020-01-08 06:10] LABS: ALANINE AMINOTRANSFERASE 51 U/L (12-78); ALBUMIN 2.7 G/DL (3.4-5.0); ALBUMIN/GLOBULIN RATIO 0.6 (1.0-2.7); ALKALINE PHOSPHATASE 65 U/L (46-116); ANION GAP 7 mmol/L (5-15); ASPARTATE AMINO TRANSFERASE 31 U/L (15-37); BILIRUBIN,TOTAL 0.4 MG/DL (0.2-1.0); BLOOD UREA NITROGEN 16 mg/dL (7-18); CALCIUM 8.8 MG/DL (8.5-10.1); CARBON DIOXIDE 28 MMOL/L (21-32); CHLORIDE 104 MMOL/L (98-107); CREATININE 1.2 MG/DL (0.55-1.30); PHOSPHORUS 3.9 MG/DL (2.5-4.9); POTASSIUM 3.7 MMOL/L (3.5-5.1); SODIUM 139 MMOL/L (136-145)
[2020-01-08 08:00] VITALS: BP 143/90
[2020-01-08] MEDS: Enoxaparin 40mg Inj SUBQ SCH ×2 (08:30→20:25)
--- NOTE | 2020-01-08 09:57 | Pulmonology Progress Note ---
Subjective ROS Limited/Unobtainable: No Interval Events: no further fevers Constitutional: Reports: no symptoms HEENT: Repors: no symptoms Respiratory: Reports: no symptoms Cardiovascular: Reports: no symptoms Gastrointestinal/Abdominal: Reports: no symptoms Genitourinary: Reports: no symptoms Psychiatric: Reports: no symptoms Skin: Reports: no symptoms Musculoskeletal: Reports: no symptoms Allergies: Coded Allergies: No Known Allergies (Unverified , 12/31/19) Subjective feels better Objective Last 24 Hour Vital Signs Date Time Temp Pulse Resp B/P (MAP) Pulse Ox O2 Delivery O2 Flow Rate FiO2 01/08/20 08:30 98 143/90 01/08/20 08:00 98.1 98 20 143/90 (107) 92 01/08/20 04:00 97.7 88 20 144/80 (101) 97 01/08/20 00:00 97.5 80 20 140/65 (90) 96 01/07/20 21:00 Nasal Cannula 2.0 01/07/20 20:51 98.4 01/07/20 20:00 96.5 83 20 150/60 (90) 95 01/07/20 17:23 98.4 01/07/20 17:20 98.2 01/07/20 16:00 100.0 88 20 146/84 (104) 96 01/07/20 14:57 82 141/82 01/07/20 12:00 98.2 82 18 141/82 (101) 95 Intake and Output 01/07/20 01/08/20 19:00 07:00 Intake Total 1297.5 ml 120 ml Balance 1297.5 ml 120 ml Intake Oral 1160 ml 120 ml IV Total 137.5 ml # Voids 7 2 # Bowel Movements 2 General Appearance: no acute distress HEENT: normocephalic Respiratory: chest wall non-tender, lungs clear, normal breath sounds, no respiratory distress, decreased breath sounds Cardiovascular: normal peripheral pulses, normal rate, regular rhythm Abdomen: normal bowel sounds, soft, non tender Extremities: no cyanosis, no clubbing, no edema Musculoskeletal: normal muscle bulk Laboratory Tests 01/08/20 05:25: White Blood Count 10.6, Red Blood Count 3.59L, Hemoglobin 10.9L, Hematocrit 34.0L, Mean Corpuscular Volume 95, Mean Corpuscular Hemoglobin 30.3, Mean Corpuscular Hemoglobin Concent 32.0, Red Cell Distribution Width 12.6, Platelet Count 233, Mean Platelet Volume 6.9, Neutrophils (%) (Auto) 70.3, Lymphocytes (% ) (Auto) 20.4, Monocytes (%) (Auto) 5.5, Eosinophils (%) (Auto) 2.5, Basophils ( %) (Auto) 1.3, Sodium Level 139, Potassium Level 3.7, Chloride Level 104, Carbon Dioxide Level 28, Anion Gap 7, Blood Urea Nitrogen 16, Creatinine 1.2, Estimat Glomerular Filtration Rate 47.0, Glucose Level 103, Calcium Level 8.8, Phosphorus Level 3.9, Total Bilirubin 0.4, Aspartate Amino Transf (AST/SGOT) 31 , Alanine Aminotransferase (ALT/SGPT) 51, Alkaline Phosphatase 65, C-Reactive Protein, Quantitative 5.2H, Total Protein 6.9, Albumin 2.7L, Globulin 4.2, Albumin/Globulin Ratio 0.6L Current Medications Medications (Trade) Dose Ordered Sig/Jorge Alberto Route PRN Reason Start Time Stop Time Status Last Admin Dose Admin Acetaminophen (Tylenol) 650 mg Q4H PRN ORAL Mild Pain (Pain Scale 1-3) 01/03/20 13:00 01/31/20 12:59 01/06/20 09:50 Acetaminophen (Tylenol) 650 mg Q4H PRN ORAL Temp >100.5 01/03/20 13:00 02/01/20 12:59 Acetaminophen/ Hydrocodone Bitart ([place] 5/325) 1 tab Q4H PRN ORAL Moderate Pain (Pain Scale 4-6) 01/03/20 13:00 01/08/20 12:59 01/04/20 09:00 Albuterol Sulfate (Proventil MDI) 2 puff Q4H PRN INH Shortness of Breath 01/03/20 13:00 03/31/20 12:59 01/05/20 21:55 Amlodipine Besylate (Norvasc) 2.5 mg DAILY ORAL 01/07/20 14:45 02/06/20 14:44 01/08/20 08:30 Enoxaparin Sodium (Lovenox) 40 mg EVERY 12 HOURS SUBQ 01/03/20 21:00 03/31/20 08:59 01/08/20 08:30 Ketorolac Tromethamine (Toradol 30mg) 30 mg BIDPRN PRN IV For Pain 01/04/20 15:30 01/09/20 15:29 01/07/20 20:21 Ondansetron HCl (Zofran ODT) 4 mg Q4H PRN ORAL Nausea & Vomiting 01/03/20 22:45 02/02/20 22:44 Ondansetron HCl (Zofran) 4 mg EVERY 4 HOURS PRN IVP Nausea & Vomiting 01/03/20 23:00 02/02/20 22:44 01/04/20 11:26 Pantoprazole (Protonix) 40 mg DAILY ORAL 01/04/20 09:00 01/31/20 08:59 01/08/20 08:30 Piperacillin Sod/ Tazobactam Sod 3.375 gm/Sodium Chloride 110 ml @ 27.5 mls/hr Q8H IVPB 01/04/20 02:00 01/11/20 01:59 01/08/20 09:49 Sumatriptan Succinate (Imitrex) 25 mg DAILY PRN ORAL For Pain 01/04/20 21:45 02/03/20 21:44 01/05/20 10:19 Zolpidem Tartrate (Ambien) 5 mg HSPRN PRN ORAL Insomnia 01/03/20 21:00 01/10/20 20:59 01/05/20 21:36 Assessment/Plan Assessment/Plan 1. Shortness of breath, due to multilobar pneumonia. 2. Sinus tachycardia, resolved. 3. Acute kidney injury, resolved. 4. HTN, 5. pleural effusion 6. hypoxemia PLAN antibiotics ID follow up taper oxygen monitor clinically appears improved dc planning soon impression, plan, and exam edited and reviewed in detail care discussed with Simon Fierro MD Jan 08, 2020 09:57
[2020-01-08 12:00] VITALS: BP 133/73
--- NOTE | 2020-01-08 14:09 | Nephrology Progress Note ---
Assessment/Plan Problem List: (1) CANDICE (acute kidney injury) (2) Dehydration (3) Pneumonia Plan December 2016: Lab reviewed. Stable from renal standpoint of view January 06: No labs done today. Will check lab tomorrow. Stable from renal standpoint of view. January 05: Remains stable from renal standpoint of view. No labs done today. January 04: Stable from renal standpoint. Today's labs reviewed. Consultants notes reviewed. January 03: No can panel done today. Stable from renal standpoint of view. Check lab tomorrow. January 02: Patient remains stable from renal standpoint of view. Labs reviewed. White blood cells are down to 14,500. January 01: Patient clinically stable. No blood work done today. Will check on lab tomorrow. Previously: Serum creatinine is now normalized with hydration. White blood cell counts vipul, continue antibiotics per ID. Avoid nephrotoxic's, monitor renal parameters and electrolytes. Subjective ROS Limited/Unobtainable: No Constitutional: Reports: malaise Objective Objective Last 24 Hour Vital Signs Date Time Temp Pulse Resp B/P (MAP) Pulse Ox O2 Delivery O2 Flow Rate FiO2 01/08/20 12:00 98.2 81 20 133/73 (93) 95 01/08/20 09:00 Nasal Cannula 2.0 01/08/20 08:30 98 143/90 01/08/20 08:00 98.1 98 20 143/90 (107) 92 01/08/20 04:00 97.7 88 20 144/80 (101) 97 01/08/20 00:00 97.5 80 20 140/65 (90) 96 01/07/20 21:00 Nasal Cannula 2.0 01/07/20 20:51 98.4 01/07/20 20:00 96.5 83 20 150/60 (90) 95 01/07/20 17:23 98.4 01/07/20 17:20 98.2 01/07/20 16:00 100.0 88 20 146/84 (104) 96 01/07/20 14:57 82 141/82 Intake and Output 01/07/20 01/08/20 19:00 07:00 Intake Total 1297.5 ml 120 ml Balance 1297.5 ml 120 ml Intake Oral 1160 ml 120 ml IV Total 137.5 ml # Voids 7 2 # Bowel Movements 2 Laboratory Tests 01/08/20 05:25: White Blood Count 10.6, Red Blood Count 3.59L, Hemoglobin 10.9L, Hematocrit 34.0L, Mean Corpuscular Volume 95, Mean Corpuscular Hemoglobin 30.3, Mean Corpuscular Hemoglobin Concent 32.0, Red Cell Distribution Width 12.6, Platelet Count 233, Mean Platelet Volume 6.9, Neutrophils (%) (Auto) 70.3, Lymphocytes (% ) (Auto) 20.4, Monocytes (%) (Auto) 5.5, Eosinophils (%) (Auto) 2.5, Basophils ( %) (Auto) 1.3, Sodium Level 139, Potassium Level 3.7, Chloride Level 104, Carbon Dioxide Level 28, Anion Gap 7, Blood Urea Nitrogen 16, Creatinine 1.2, Estimat Glomerular Filtration Rate 47.0, Glucose Level 103, Calcium Level 8.8, Phosphorus Level 3.9, Total Bilirubin 0.4, Aspartate Amino Transf (AST/SGOT) 31 , Alanine Aminotransferase (ALT/SGPT) 51, Alkaline Phosphatase 65, C-Reactive Protein, Quantitative 5.2H, Total Protein 6.9, Albumin 2.7L, Globulin 4.2, Albumin/Globulin Ratio 0.6L Height (Feet): 5 Height (Inches): 7.00 Weight (Pounds): 264 General Appearance: no apparent distress Objective No change Austin Perry MD Jan 08, 2020 14:09
[2020-01-08 16:00] VITALS: BP 159/84
--- NOTE | 2020-01-08 18:17 | Internal Med Progress Note ---
Subjective Date of Service: Jan 08, 2020 Physician Name Elkin Ruvalcaba Attending Physician Radha Chan MD Current Medications Medications (Trade) Dose Ordered Sig/Jorge Alberto Route PRN Reason Start Time Stop Time Status Last Admin Dose Admin Acetaminophen (Tylenol) 650 mg Q4H PRN ORAL Mild Pain (Pain Scale 1-3) 01/03/20 13:00 01/31/20 12:59 01/06/20 09:50 Acetaminophen (Tylenol) 650 mg Q4H PRN ORAL Temp >100.5 01/03/20 13:00 02/01/20 12:59 Albuterol Sulfate (Proventil MDI) 2 puff Q4H PRN INH Shortness of Breath 01/03/20 13:00 03/31/20 12:59 01/05/20 21:55 Amlodipine Besylate (Norvasc) 2.5 mg DAILY ORAL 01/07/20 14:45 02/06/20 14:44 01/08/20 08:30 Enoxaparin Sodium (Lovenox) 40 mg EVERY 12 HOURS SUBQ 01/03/20 21:00 03/31/20 08:59 01/08/20 08:30 Ketorolac Tromethamine (Toradol 30mg) 30 mg BIDPRN PRN IV For Pain 01/04/20 15:30 01/09/20 15:29 01/07/20 20:21 Ondansetron HCl (Zofran ODT) 4 mg Q4H PRN ORAL Nausea & Vomiting 01/03/20 22:45 02/02/20 22:44 Ondansetron HCl (Zofran) 4 mg EVERY 4 HOURS PRN IVP Nausea & Vomiting 01/03/20 23:00 02/02/20 22:44 01/04/20 11:26 Pantoprazole (Protonix) 40 mg DAILY ORAL 01/04/20 09:00 01/31/20 08:59 01/08/20 08:30 Piperacillin Sod/ Tazobactam Sod 3.375 gm/Sodium Chloride 110 ml @ 27.5 mls/hr Q8H IVPB 01/04/20 02:00 01/11/20 01:59 01/08/20 17:37 Sumatriptan Succinate (Imitrex) 25 mg DAILY PRN ORAL For Pain 01/04/20 21:45 02/03/20 21:44 01/05/20 10:19 Zolpidem Tartrate (Ambien) 5 mg HSPRN PRN ORAL Insomnia 01/03/20 21:00 01/10/20 20:59 01/05/20 21:36 Allergies: Coded Allergies: No Known Allergies (Unverified , 12/31/19) ROS Limited/Unobtainable: No Constitutional: Reports: no symptoms Cardiovascular: Reports: no symptoms Gastrointestinal/Abdominal: Reports: no symptoms Genitourinary: Reports: no symptoms Neurologic/Psychiatric: Reports: no symptoms Subjective 54 YO F admitted with shortness of breath. Now community acquired pneumonia. Cover for Int med-Dr Chan Objective Last Vital Signs Date Time Temp Pulse Resp B/P (MAP) Pulse Ox O2 Delivery O2 Flow Rate FiO2 01/08/20 16:00 98.1 82 20 159/84 (109) 95 01/08/20 09:00 Nasal Cannula 2.0 12/31/19 21:00 99 General Appearance: WD/WN, no apparent distress, alert EENT: PERRL/EOMI, normal ENT inspection, TMs normal Neck: non-tender, normal alignment, supple, normal inspection Cardiovascular: normal peripheral pulses, normal rate, regular rhythm, no gallop/murmur, no JVD Respiratory/Chest: chest wall non-tender, crackles/rales, rhonchi - bilaterally , expiratory wheezing Abdomen: normal bowel sounds, non tender, soft, no organomegaly, no mass Extremities: normal range of motion, non-tender Neurologic: brusher warp II-XII grossly normal, no motor/sensory deficits Skin: normal pigmentation, warm/dry Laboratory Tests Test 01/08/20 05:25 White Blood Count 10.6 K/UL (4.8-10.8) Red Blood Count 3.59 M/UL (4.20-5.40) L Hemoglobin 10.9 G/DL (12.0-16.0) L Hematocrit 34.0 % (37.0-47.0) L Mean Corpuscular Volume 95 FL (80-99) Mean Corpuscular Hemoglobin 30.3 PG (27.0-31.0) Mean Corpuscular Hemoglobin Concent 32.0 G/DL (32.0-36.0) Red Cell Distribution Width 12.6 % (11.6-14.8) Platelet Count 233 K/UL (150-450) Mean Platelet Volume 6.9 FL (6.5-10.1) Neutrophils (%) (Auto) 70.3 % (45.0-75.0) Lymphocytes (%) (Auto) 20.4 % (20.0-45.0) Monocytes (%) (Auto) 5.5 % (1.0-10.0) Eosinophils (%) (Auto) 2.5 % (0.0-3.0) Basophils (%) (Auto) 1.3 % (0.0-2.0) Sodium Level 139 MMOL/L (136-145) Potassium Level 3.7 MMOL/L (3.5-5.1) Chloride Level 104 MMOL/L (98-107) Carbon Dioxide Level 28 MMOL/L (21-32) Anion Gap 7 mmol/L (5-15) Blood Urea Nitrogen 16 mg/dL (7-18) Creatinine 1.2 MG/DL (0.55-1.30) Estimat Glomerular Filtration Rate 47.0 mL/min (>60) Glucose Level 103 MG/DL (74-106) Calcium Level 8.8 MG/DL (8.5-10.1) Phosphorus Level 3.9 MG/DL (2.5-4.9) Total Bilirubin 0.4 MG/DL (0.2-1.0) Aspartate Amino Transf (AST/SGOT) 31 U/L (15-37) Alanine Aminotransferase (ALT/SGPT) 51 U/L (12-78) Alkaline Phosphatase 65 U/L (46-116) C-Reactive Protein, Quantitative 5.2 mg/dL (0.00-0.90) H Total Protein 6.9 G/DL (6.4-8.2) Albumin 2.7 G/DL (3.4-5.0) L Globulin 4.2 g/dL Albumin/Globulin Ratio 0.6 (1.0-2.7) L Intake and Output 01/07/20 01/08/20 19:00 07:00 Intake Total 1297.5 ml 120 ml Balance 1297.5 ml 120 ml Intake Oral 1160 ml 120 ml IV Total 137.5 ml # Voids 7 2 # Bowel Movements 2 Assessment/Plan Problem List: (1) Pneumonia Assessment & Plan: Community acquired. Continue zosyn per ID-DR Davis (2) CANDICE (acute kidney injury) Assessment & Plan: Nephrology=DR Perry (3) Hypoxia (4) Dehydration (5) Suspected 2019 novel coronavirus infection Assessment & Plan: COVID 19 Elkin Gaspar MD Jan 08, 2020 18:17
[2020-01-08 20:00] VITALS: BP 150/80
--- NOTE | 2020-01-08 21:41 | Infectious Diseases Prog Note ---
Assessment/Plan Problems: (1) Pneumonia Assessment & Plan: with bilateral multifocal infiltration, and NEGATIVE PCR FOR COV ID 19 x 2 , suspect aspiration related due to vomiting, continue zosyn empirically to treat for pneumonia for 10-14 days . may switch to oral augmentin to complete her course of treatment (2) Hypoxia Assessment & Plan: suspect due to the above continue oxygen supplement and supportive care , pulmonary is following (3) Suspected 2019 novel coronavirus infection Assessment & Plan: COVID 19 rapid ID test was cancelled by Dr Burnett , and PCR test is negative . less likely COVID infection (4) CANDICE (acute kidney injury) Assessment & Plan: suspect dehydration continue IV fluid avoid nephrotoxic's Subjective Constitutional: Reports: no symptoms HEENT: Reports: no symptoms Respiratory: Reports: no symptoms Breasts: Reports: no symptoms Cardiovascular: Reports: no symptoms Gastrointestinal/Abdominal: Reports: no symptoms Genitourinary: Reports: no symptoms Neurologic: Reports: no symptoms Psychiatric: Reports: no symptoms Skin: Reports: no symptoms Endocrine: Reports: no symptoms Hematologic: Reports: no symptoms Musculoskeletal: Reports: no symptoms Allergies: Coded Allergies: No Known Allergies (Unverified , 12/31/19) Objective Last 24 Hour Vital Signs Date Time Temp Pulse Resp B/P (MAP) Pulse Ox O2 Delivery O2 Flow Rate FiO2 01/08/20 21:00 Nasal Cannula 2.0 01/08/20 20:00 97.5 75 20 150/80 (103) 98 01/08/20 16:00 98.1 82 20 159/84 (109) 95 01/08/20 12:00 98.2 81 20 133/73 (93) 95 01/08/20 09:00 Nasal Cannula 2.0 01/08/20 08:30 98 143/90 01/08/20 08:00 98.1 98 20 143/90 (107) 92 01/08/20 04:00 97.7 88 20 144/80 (101) 97 01/08/20 00:00 97.5 80 20 140/65 (90) 96 Height (Feet): 5 Height (Inches): 7.00 Weight (Pounds): 264 General Appearance: WD/WN, no acute distress HEENT: normocephalic, atraumatic, anicteric, mucous membranes moist, PERRL Respiratory/Chest: chest wall non-tender, no respiratory distress, no accessory muscle use, decreased breath sounds Cardiovascular: normal peripheral pulses, normal rate, regular rhythm, no gallop/murmur, no JVD Abdomen: normal bowel sounds, soft, non tender, no organomegaly, non distended , no mass, no scars Genitourinary: normal external genitalia Extremities: no cyanosis, no clubbing Skin: no rash, no lesions, no ulcers Neurologic/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: 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 grossly normal, alert, oriented x 3, responsive Lymphatic: no neck adenopathy, no groin adenopathy Musculoskeletal: normal muscle bulk, no effusion Laboratory Tests Test 01/08/20 05:25 White Blood Count 10.6 K/UL (4.8-10.8) Red Blood Count 3.59 M/UL (4.20-5.40) L Hemoglobin 10.9 G/DL (12.0-16.0) L Hematocrit 34.0 % (37.0-47.0) L Mean Corpuscular Volume 95 FL (80-99) Mean Corpuscular Hemoglobin 30.3 PG (27.0-31.0) Mean Corpuscular Hemoglobin Concent 32.0 G/DL (32.0-36.0) Red Cell Distribution Width 12.6 % (11.6-14.8) Platelet Count 233 K/UL (150-450) Mean Platelet Volume 6.9 FL (6.5-10.1) Neutrophils (%) (Auto) 70.3 % (45.0-75.0) Lymphocytes (%) (Auto) 20.4 % (20.0-45.0) Monocytes (%) (Auto) 5.5 % (1.0-10.0) Eosinophils (%) (Auto) 2.5 % (0.0-3.0) Basophils (%) (Auto) 1.3 % (0.0-2.0) Sodium Level 139 MMOL/L (136-145) Potassium Level 3.7 MMOL/L (3.5-5.1) Chloride Level 104 MMOL/L (98-107) Carbon Dioxide Level 28 MMOL/L (21-32) Anion Gap 7 mmol/L (5-15) Blood Urea Nitrogen 16 mg/dL (7-18) Creatinine 1.2 MG/DL (0.55-1.30) Estimat Glomerular Filtration Rate 47.0 mL/min (>60) Glucose Level 103 MG/DL (74-106) Calcium Level 8.8 MG/DL (8.5-10.1) Phosphorus Level 3.9 MG/DL (2.5-4.9) Total Bilirubin 0.4 MG/DL (0.2-1.0) Aspartate Amino Transf (AST/SGOT) 31 U/L (15-37) Alanine Aminotransferase (ALT/SGPT) 51 U/L (12-78) Alkaline Phosphatase 65 U/L (46-116) C-Reactive Protein, Quantitative 5.2 mg/dL (0.00-0.90) H Total Protein 6.9 G/DL (6.4-8.2) Albumin 2.7 G/DL (3.4-5.0) L Globulin 4.2 g/dL Albumin/Globulin Ratio 0.6 (1.0-2.7) L Current Medications Medications (Trade) Dose Ordered Sig/Jorge Alberto Route PRN Reason Start Time Stop Time Status Last Admin Dose Admin Acetaminophen (Tylenol) 650 mg Q4H PRN ORAL Mild Pain (Pain Scale 1-3) 01/03/20 13:00 01/31/20 12:59 01/06/20 09:50 Acetaminophen (Tylenol) 650 mg Q4H PRN ORAL Temp >100.5 01/03/20 13:00 02/01/20 12:59 Albuterol Sulfate (Proventil MDI) 2 puff Q4H PRN INH Shortness of Breath 01/03/20 13:00 03/31/20 12:59 01/05/20 21:55 Amlodipine Besylate (Norvasc) 2.5 mg DAILY ORAL 01/07/20 14:45 02/06/20 14:44 01/08/20 08:30 Enoxaparin Sodium (Lovenox) 40 mg EVERY 12 HOURS SUBQ 01/03/20 21:00 03/31/20 08:59 01/08/20 20:25 Ketorolac Tromethamine (Toradol 30mg) 30 mg BIDPRN PRN IV For Pain 01/04/20 15:30 01/09/20 15:29 01/07/20 20:21 Ondansetron HCl (Zofran ODT) 4 mg Q4H PRN ORAL Nausea & Vomiting 01/03/20 22:45 02/02/20 22:44 Ondansetron HCl (Zofran) 4 mg EVERY 4 HOURS PRN IVP Nausea & Vomiting 01/03/20 23:00 02/02/20 22:44 01/04/20 11:26 Pantoprazole (Protonix) 40 mg DAILY ORAL 01/04/20 09:00 01/31/20 08:59 01/08/20 08:30 Piperacillin Sod/ Tazobactam Sod 3.375 gm/Sodium Chloride 110 ml @ 27.5 mls/hr Q8H IVPB 01/04/20 02:00 01/11/20 01:59 01/08/20 17:37 Sumatriptan Succinate (Imitrex) 25 mg DAILY PRN ORAL For Pain 01/04/20 21:45 02/03/20 21:44 01/05/20 10:19 Zolpidem Tartrate (Ambien) 5 mg HSPRN PRN ORAL Insomnia 01/03/20 21:00 01/10/20 20:59 01/05/20 21:36 Carol Ann Davis M.D. Jan 08, 2020 21:41
[2020-01-09] VITALS: BP 140/91
[2020-01-09] MEDS: Piperacillin/Tazobactam 3.375 GM in NS 110 ML IVPB SCH ×3 (02:40→17:50)
[2020-01-09 04:00] VITALS: BP 141/81
[2020-01-09 08:00] VITALS: BP 152/77
[2020-01-09] MEDS: Enoxaparin 40mg Inj SUBQ SCH ×2 (08:21→21:02)
--- NOTE | 2020-01-09 08:32 | Pulmonology Progress Note ---
Subjective ROS Limited/Unobtainable: No Interval Events: no further fevers Constitutional: Reports: no symptoms HEENT: Repors: no symptoms Respiratory: Reports: no symptoms Cardiovascular: Reports: no symptoms Gastrointestinal/Abdominal: Reports: no symptoms Genitourinary: Reports: no symptoms Psychiatric: Reports: no symptoms Skin: Reports: no symptoms Musculoskeletal: Reports: no symptoms Allergies: Coded Allergies: No Known Allergies (Unverified , 12/31/19) Subjective comfortable at present low flow oxygen Objective Last 24 Hour Vital Signs Date Time Temp Pulse Resp B/P (MAP) Pulse Ox O2 Delivery O2 Flow Rate FiO2 01/09/20 08:20 88 152/77 01/09/20 08:00 98.4 88 18 152/77 (102) 96 01/09/20 04:00 98.0 72 19 141/81 (101) 96 01/09/20 00:00 98.6 85 20 140/91 (107) 94 01/08/20 21:00 Nasal Cannula 2.0 01/08/20 20:00 97.5 75 20 150/80 (103) 98 01/08/20 16:00 98.1 82 20 159/84 (109) 95 01/08/20 12:00 98.2 81 20 133/73 (93) 95 01/08/20 09:00 Nasal Cannula 2.0 Intake and Output 01/08/20 01/09/20 19:00 07:00 Intake Total 1217.5 ml 322.5 ml Balance 1217.5 ml 322.5 ml Intake Oral 1080 ml 240 ml IV Total 137.5 ml 82.5 ml # Voids 4 3 # Bowel Movements 1 General Appearance: no acute distress HEENT: normocephalic Respiratory: chest wall non-tender, lungs clear, normal breath sounds, no respiratory distress, decreased breath sounds Cardiovascular: normal peripheral pulses, normal rate, regular rhythm Abdomen: normal bowel sounds, soft, non tender Extremities: no cyanosis, no clubbing, no edema Musculoskeletal: normal muscle bulk Current Medications Medications (Trade) Dose Ordered Sig/Jorge Alberto Route PRN Reason Start Time Stop Time Status Last Admin Dose Admin Acetaminophen (Tylenol) 650 mg Q4H PRN ORAL Mild Pain (Pain Scale 1-3) 01/03/20 13:00 01/31/20 12:59 01/06/20 09:50 Acetaminophen (Tylenol) 650 mg Q4H PRN ORAL Temp >100.5 01/03/20 13:00 02/01/20 12:59 Albuterol Sulfate (Proventil MDI) 2 puff Q4H PRN INH Shortness of Breath 01/03/20 13:00 03/31/20 12:59 01/05/20 21:55 Amlodipine Besylate (Norvasc) 2.5 mg DAILY ORAL 01/07/20 14:45 02/06/20 14:44 01/09/20 08:20 Enoxaparin Sodium (Lovenox) 40 mg EVERY 12 HOURS SUBQ 01/03/20 21:00 03/31/20 08:59 01/09/20 08:21 Ketorolac Tromethamine (Toradol 30mg) 30 mg BIDPRN PRN IV For Pain 01/04/20 15:30 01/09/20 15:29 01/07/20 20:21 Ondansetron HCl (Zofran ODT) 4 mg Q4H PRN ORAL Nausea & Vomiting 01/03/20 22:45 02/02/20 22:44 Ondansetron HCl (Zofran) 4 mg EVERY 4 HOURS PRN IVP Nausea & Vomiting 01/03/20 23:00 02/02/20 22:44 01/04/20 11:26 Pantoprazole (Protonix) 40 mg DAILY ORAL 01/04/20 09:00 01/31/20 08:59 01/09/20 08:19 Piperacillin Sod/ Tazobactam Sod 3.375 gm/Sodium Chloride 110 ml @ 27.5 mls/hr Q8H IVPB 01/04/20 02:00 01/11/20 01:59 01/09/20 02:40 Sumatriptan Succinate (Imitrex) 25 mg DAILY PRN ORAL For Pain 01/04/20 21:45 02/03/20 21:44 01/05/20 10:19 Zolpidem Tartrate (Ambien) 5 mg HSPRN PRN ORAL Insomnia 01/03/20 21:00 01/10/20 20:59 01/05/20 21:36 Assessment/Plan Assessment/Plan 1. Shortness of breath, due to multilobar pneumonia. 2. Sinus tachycardia, resolved. 3. Acute kidney injury, resolved. 4. HTN, 5. pleural effusion 6. hypoxemia PLAN antibiotics noted ID follow up taper oxygen as able monitor clinically appears improved dc planning soon/ monitor cxr impression, plan, and exam edited and reviewed in detail care discussed with Simon Fierro MD Jan 09, 2020 08:32
--- NOTE | 2020-01-09 08:49 | Nephrology Progress Note ---
Assessment/Plan Problem List: (1) CANDICE (acute kidney injury) (2) Dehydration (3) Pneumonia Plan January 08: No labs drawn today. Stable from renal standpoint to view. Continue per consultants. January 07: Lab reviewed. Stable from renal standpoint of view January 06: No labs done today. Will check lab tomorrow. Stable from renal standpoint of view. January 05: Remains stable from renal standpoint of view. No labs done today. January 04: Stable from renal standpoint. Today's labs reviewed. Consultants notes reviewed. January 03: No can panel done today. Stable from renal standpoint of view. Check lab tomorrow. January 02: Patient remains stable from renal standpoint of view. Labs reviewed. White blood cells are down to 14,500. January 01: Patient clinically stable. No blood work done today. Will check on lab tomorrow. Previously: Serum creatinine is now normalized with hydration. White blood cell counts vipul, continue antibiotics per ID. Avoid nephrotoxic's, monitor renal parameters and electrolytes. Subjective ROS Limited/Unobtainable: No Constitutional: Reports: malaise Objective Objective Last 24 Hour Vital Signs Date Time Temp Pulse Resp B/P (MAP) Pulse Ox O2 Delivery O2 Flow Rate FiO2 01/09/20 08:20 88 152/77 01/09/20 08:00 98.4 88 18 152/77 (102) 96 01/09/20 04:00 98.0 72 19 141/81 (101) 96 01/09/20 00:00 98.6 85 20 140/91 (107) 94 01/08/20 21:00 Nasal Cannula 2.0 01/08/20 20:00 97.5 75 20 150/80 (103) 98 01/08/20 16:00 98.1 82 20 159/84 (109) 95 01/08/20 12:00 98.2 81 20 133/73 (93) 95 01/08/20 09:00 Nasal Cannula 2.0 Intake and Output 01/08/20 01/09/20 19:00 07:00 Intake Total 1217.5 ml 322.5 ml Balance 1217.5 ml 322.5 ml Intake Oral 1080 ml 240 ml IV Total 137.5 ml 82.5 ml # Voids 4 3 # Bowel Movements 1 No labs drawn for today January 08 Height (Feet): 5 Height (Inches): 7.00 Weight (Pounds): 264 General Appearance: no apparent distress Respiratory/Chest: decreased breath sounds Abdomen: soft Objective No change Ausitn Perry MD Jan 09, 2020 08:49
--- NOTE | 2020-01-09 09:06 | Diagnostic Imaging Report ---
EXAM: XR Chest, 1 View CLINICAL HISTORY: SOB TECHNIQUE: Frontal view of the chest. COMPARISON: Chest x-ray, 01/03/20 FINDINGS: Lungs: Hypoventilatory lungs. Bibasilar lung atelectasis/airspace disease, worse in the left lower lobe. Overall improvement in right lower lobe and more consolidated in the left lower lobe compared to prior study. Pleural space: Small left pleural effusion, similar. No pneumothorax. Heart: Unremarkable. No cardiomegaly. Mediastinum: Unremarkable. Bones/joints: Unremarkable. IMPRESSION: 1. Hypoventilatory lungs. Bibasilar lung atelectasis/airspace disease, worse in the left lower lobe. Overall improvement in right lower lobe and more consolidated in the left lower lobe compared to prior study. 2. Small left pleural effusion, similar.
[2020-01-09 12:00] VITALS: BP 153/76
--- NOTE | 2020-01-09 15:47 | Internal Med Progress Note ---
Subjective Date of Service: Jan 09, 2020 Physician Name lEkin Ruvalcaba Attending Physician Radha Chan MD Current Medications Medications (Trade) Dose Ordered Sig/Jorge Alberto Route PRN Reason Start Time Stop Time Status Last Admin Dose Admin Acetaminophen (Tylenol) 650 mg Q4H PRN ORAL Mild Pain (Pain Scale 1-3) 01/03/20 13:00 01/31/20 12:59 01/06/20 09:50 Acetaminophen (Tylenol) 650 mg Q4H PRN ORAL Temp >100.5 01/03/20 13:00 02/01/20 12:59 Albuterol Sulfate (Proventil MDI) 2 puff Q4H PRN INH Shortness of Breath 01/03/20 13:00 03/31/20 12:59 01/05/20 21:55 Amlodipine Besylate (Norvasc) 2.5 mg DAILY ORAL 01/07/20 14:45 02/06/20 14:44 01/09/20 08:20 Enoxaparin Sodium (Lovenox) 40 mg EVERY 12 HOURS SUBQ 01/03/20 21:00 03/31/20 08:59 01/09/20 08:21 Ondansetron HCl (Zofran ODT) 4 mg Q4H PRN ORAL Nausea & Vomiting 01/03/20 22:45 02/02/20 22:44 Ondansetron HCl (Zofran) 4 mg EVERY 4 HOURS PRN IVP Nausea & Vomiting 01/03/20 23:00 02/02/20 22:44 01/04/20 11:26 Pantoprazole (Protonix) 40 mg DAILY ORAL 01/04/20 09:00 01/31/20 08:59 01/09/20 08:19 Piperacillin Sod/ Tazobactam Sod 3.375 gm/Sodium Chloride 110 ml @ 27.5 mls/hr Q8H IVPB 01/04/20 02:00 01/13/20 01:59 01/09/20 11:03 Sumatriptan Succinate (Imitrex) 25 mg DAILY PRN ORAL For Pain 01/04/20 21:45 02/03/20 21:44 01/05/20 10:19 Zolpidem Tartrate (Ambien) 5 mg HSPRN PRN ORAL Insomnia 01/03/20 21:00 01/10/20 20:59 01/05/20 21:36 Allergies: Coded Allergies: No Known Allergies (Unverified , 12/31/19) ROS Limited/Unobtainable: No Constitutional: Reports: no symptoms HEENT: Reports: no symptoms Cardiovascular: Reports: no symptoms Respiratory: Reports: no symptoms Gastrointestinal/Abdominal: Reports: no symptoms Genitourinary: Reports: no symptoms Neurologic/Psychiatric: Reports: no symptoms Subjective 54 YO F admitted with shortness of breath. Now community acquired pneumonia. Cover for Int med-Dr Chan Objective Last Vital Signs Date Time Temp Pulse Resp B/P (MAP) Pulse Ox O2 Delivery O2 Flow Rate FiO2 01/09/20 12:00 97.9 90 18 153/76 (101) 92 01/09/20 09:00 Nasal Cannula 2.0 12/31/19 21:00 99 Intake and Output 01/08/20 01/09/20 19:00 07:00 Intake Total 1217.5 ml 322.5 ml Balance 1217.5 ml 322.5 ml Intake Oral 1080 ml 240 ml IV Total 137.5 ml 82.5 ml # Voids 4 3 # Bowel Movements 1 Objective General Appearance: WD/WN, no apparent distress, alert EENT: PERRL/EOMI, normal ENT inspection, TMs normal Neck: non-tender, normal alignment, supple, normal inspection Cardiovascular: normal peripheral pulses, normal rate, regular rhythm, no gallop/murmur, no JVD Respiratory/Chest: chest wall non-tender, crackles/rales, rhonchi - bilaterally , expiratory wheezing Abdomen: normal bowel sounds, non tender, soft, no organomegaly, no mass Extremities: normal range of motion, non-tender 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 Continue zosyn per ID-DR Davis (2) CANDICE (acute kidney injury) Assessment & Plan: Nephrology=DR Perry (3) Hypoxia (4) Dehydration (5) Suspected 2019 novel coronavirus infection Assessment & Plan: COVID 19 Elkin Gaspar MD Jan 09, 2020 15:47
[2020-01-09 16:00] VITALS: BP 142/89
[2020-01-09 20:00] VITALS: BP_SYST 160; BP_SYST 169; BP_DIAS 81
--- NOTE | 2020-01-09 20:31 | Cardiology Progress Note ---
Assessment/Plan Assessment/Plan 1. Shortness of breath, due to multilobar pneumonia. Normal brain natriuretic peptide essentially ruled out acute congestive heart failure. COVID-19 infection is ruled out. 2. Sinus tachycardia, resolved. 3. Acute kidney injury, resolved. 4. HTN, will optimize amlodipine. Subjective Subjective No cardiac events reported. Objective Last 24 Hour Vital Signs Date Time Temp Pulse Resp B/P (MAP) Pulse Ox O2 Delivery O2 Flow Rate FiO2 01/09/20 16:00 98.4 89 19 142/89 (106) 92 01/09/20 12:00 97.9 90 18 153/76 (101) 92 01/09/20 09:00 Nasal Cannula 2.0 01/09/20 08:20 88 152/77 01/09/20 08:00 98.4 88 18 152/77 (102) 96 01/09/20 04:00 98.0 72 19 141/81 (101) 96 01/09/20 00:00 98.6 85 20 140/91 (107) 94 01/08/20 21:00 Nasal Cannula 2.0 Intake and Output 01/08/20 01/09/20 19:00 07:00 Intake Total 1217.5 ml 322.5 ml Balance 1217.5 ml 322.5 ml Intake Oral 1080 ml 240 ml IV Total 137.5 ml 82.5 ml # Voids 4 3 # Bowel Movements 1 Objective HEENT: Atraumatic and normocephalic. Anicteric. Pupils are equal, round, and reactive to light and accommodation. Extraocular muscles intact. NECK: No JVD, No carotid bruit, carotid upstroke 2+ B/L. CVS: Normal S1S2, regular rate and rhythm, no murmurs, gallops or rubs. ABDOMEN: Soft, nontender, nondistended. No hepatosplenomegaly. Positive bowel sounds. EXTREMITIES: No evidence of edema, clubbing, or cyanosis. Genaro Barrett MD Jan 09, 2020 20:31
--- NOTE | 2020-01-09 21:20 | Infectious Diseases Prog Note ---
Assessment/Plan Problems: (1) Pneumonia Assessment & Plan: with bilateral multifocal infiltration, and NEGATIVE PCR FOR COV ID 19 x 2 , suspect aspiration related due to vomiting, continue zosyn empirically to treat for pneumonia for 10-14 days . may switch to oral augmentin to complete her course of treatment (2) Hypoxia Assessment & Plan: suspect due to the above continue oxygen supplement and supportive care , pulmonary is following (3) Suspected 2019 novel coronavirus infection Assessment & Plan: COVID 19 rapid ID test was cancelled by Dr Burnett , and PCR test is negative . less likely COVID infection (4) CANDICE (acute kidney injury) Assessment & Plan: suspect dehydration continue IV fluid avoid nephrotoxic's Subjective Constitutional: Reports: no symptoms HEENT: Reports: no symptoms Respiratory: Reports: no symptoms Breasts: Reports: no symptoms Cardiovascular: Reports: no symptoms Gastrointestinal/Abdominal: Reports: no symptoms Genitourinary: Reports: no symptoms Neurologic: Reports: no symptoms Psychiatric: Reports: no symptoms Skin: Reports: no symptoms Endocrine: Reports: no symptoms Hematologic: Reports: no symptoms Musculoskeletal: Reports: no symptoms Allergies: Coded Allergies: No Known Allergies (Unverified , 12/31/19) Objective Last 24 Hour Vital Signs Date Time Temp Pulse Resp B/P (MAP) Pulse Ox O2 Delivery O2 Flow Rate FiO2 01/09/20 16:00 98.4 89 19 142/89 (106) 92 01/09/20 12:00 97.9 90 18 153/76 (101) 92 01/09/20 09:00 Nasal Cannula 2.0 01/09/20 08:20 88 152/77 01/09/20 08:00 98.4 88 18 152/77 (102) 96 01/09/20 04:00 98.0 72 19 141/81 (101) 96 01/09/20 00:00 98.6 85 20 140/91 (107) 94 Height (Feet): 5 Height (Inches): 7.00 Weight (Pounds): 264 General Appearance: WD/WN, no acute distress HEENT: normocephalic, atraumatic, anicteric, mucous membranes moist, PERRL Respiratory/Chest: chest wall non-tender, no respiratory distress, no accessory muscle use, decreased breath sounds, crackles/rales Cardiovascular: normal peripheral pulses, normal rate, regular rhythm, no gallop/murmur, no JVD Abdomen: normal bowel sounds, soft, non tender, no organomegaly, non distended , no mass, no scars Genitourinary: normal external genitalia Extremities: no cyanosis, no clubbing Skin: no rash, no lesions, no ulcers Neurologic/Psychiatric: chief engineer production II-XII grossly normal, alert, oriented x 3, responsive Lymphatic: no neck adenopathy, no groin adenopathy Musculoskeletal: normal muscle bulk, no effusion Current Medications Medications (Trade) Dose Ordered Sig/Jorge Alberto Route PRN Reason Start Time Stop Time Status Last Admin Dose Admin Acetaminophen (Tylenol) 650 mg Q4H PRN ORAL Mild Pain (Pain Scale 1-3) 01/03/20 13:00 01/31/20 12:59 01/06/20 09:50 Acetaminophen (Tylenol) 650 mg Q4H PRN ORAL Temp >100.5 01/03/20 13:00 02/01/20 12:59 Albuterol Sulfate (Proventil MDI) 2 puff Q4H PRN INH Shortness of Breath 01/03/20 13:00 03/31/20 12:59 01/05/20 21:55 Amlodipine Besylate (Norvasc) 5 mg DAILY ORAL 01/10/20 09:00 02/09/20 08:59 Enoxaparin Sodium (Lovenox) 40 mg EVERY 12 HOURS SUBQ 01/03/20 21:00 03/31/20 08:59 01/09/20 21:02 Ondansetron HCl (Zofran ODT) 4 mg Q4H PRN ORAL Nausea & Vomiting 01/03/20 22:45 02/02/20 22:44 Ondansetron HCl (Zofran) 4 mg EVERY 4 HOURS PRN IVP Nausea & Vomiting 01/03/20 23:00 02/02/20 22:44 01/04/20 11:26 Pantoprazole (Protonix) 40 mg DAILY ORAL 01/04/20 09:00 01/31/20 08:59 01/09/20 08:19 Piperacillin Sod/ Tazobactam Sod 3.375 gm/Sodium Chloride 110 ml @ 27.5 mls/hr Q8H IVPB 01/04/20 02:00 01/13/20 01:59 01/09/20 17:50 Sumatriptan Succinate (Imitrex) 25 mg DAILY PRN ORAL For Pain 01/04/20 21:45 02/03/20 21:44 01/05/20 10:19 Zolpidem Tartrate (Ambien) 5 mg HSPRN PRN ORAL Insomnia 01/03/20 21:00 01/10/20 20:59 01/05/20 21:36 Carol Ann Davis M.D. Jan 09, 2020 21:20
[2020-01-10] VITALS: BP 152/90
[2020-01-10] MEDS: Piperacillin/Tazobactam 3.375 GM in NS 110 ML IVPB SCH ×2 (01:48→10:50)
[2020-01-10 04:00] VITALS: BP 125/60
--- NOTE | 2020-01-10 07:28 | General Progress Note ---
Assessment/Plan Assessment/Plan: S: I am ok O: seems comfortable, no distress, in mild sob PHYSICAL EXAMINATION: HEAD AND NECK: Atraumatic and normocephalic. CHEST: Diffuse bronchial breathing sounds. HEART: S1 and S2. Regular rate and rhythm. ABDOMEN: Soft. No organomegaly. MUSCULOSKELETAL: No gross lateralized motor deficit. NEUROLOGIC: The patient is awake, alert, and oriented x3. Labs: reviewed from today Meds: reviewed and reconciled ASSESSMENT: 1. Sepsis secondary to community-acquired pneumonia. 2. Asthma/COPD. 3. Renal failure, age indeterminate. 4. Abnormal blood sugar. 5. GI and DVT prophylaxes. PLAN OF CARE: Notes from pulmonary reviewed current management Monitor Pleural effusion and O2 requirement, per Pulmonary Once stable from pulmonary service, may follow as o/p Subjective Allergies: Coded Allergies: No Known Allergies (Unverified , 12/31/19) Objective Last 24 Hour Vital Signs Date Time Temp Pulse Resp B/P (MAP) Pulse Ox O2 Delivery O2 Flow Rate FiO2 01/10/20 04:00 98.1 80 22 125/60 (81) 91 01/10/20 00:00 98.8 72 20 152/90 (110) 94 01/09/20 21:00 Room Air 01/09/20 20:00 99.7 76 22 160/81 (107) 93 01/09/20 16:00 98.4 89 19 142/89 (106) 92 01/09/20 12:00 97.9 90 18 153/76 (101) 92 01/09/20 09:00 Nasal Cannula 2.0 01/09/20 08:20 88 152/77 01/09/20 08:00 98.4 88 18 152/77 (102) 96 Intake and Output 01/09/20 01/10/20 19:00 07:00 Intake Total 1412.0 ml 580.0 ml Output Total 2 ml Balance 1412.0 ml 578.0 ml Intake Oral 1302 ml IV Total 110.0 ml 220.0 ml Other 360 ml Output Urine Total 2 ml # Voids 6 2 # Bowel Movements 3 Laboratory Tests 01/10/20 05:28: White Blood Count [Pending], Red Blood Count [Pending], Hemoglobin [Pending], Hematocrit [Pending], Mean Corpuscular Volume [Pending], Mean Corpuscular Hemoglobin [Pending], Mean Corpuscular Hemoglobin Concent [Pending], Red Cell Distribution Width [Pending], Platelet Count [Pending], Mean Platelet Volume [ Pending], Neutrophils (%) (Auto) [Pending], Lymphocytes (%) (Auto) [Pending], Monocytes (%) (Auto) [Pending], Eosinophils (%) (Auto) [Pending], Basophils (%) (Auto) [Pending], Sodium Level [Pending], Potassium Level [Pending], Chloride Level [Pending], Carbon Dioxide Level [Pending], Blood Urea Nitrogen [Pending], Creatinine [Pending], Estimat Glomerular Filtration Rate [Pending], Glucose Level [Pending], Calcium Level [Pending] Height (Feet): 5 Height (Inches): 7.00 Weight (Pounds): 264 Radha Chan MD Jan 10, 2020 07:28
[2020-01-10 07:44] LABS: BASOPHILS % (AUTO) 0.7 % (0.0-2.0); EOSINOPHILS % (AUTO) 2.2 % (0.0-3.0); HEMATOCRIT 34.9 % (37.0-47.0); HEMOGLOBIN 11.3 G/DL (12.0-16.0); LYMPHOCYTES % (AUTO) 23.7 % (20.0-45.0); MEAN CORPUSCULAR VOLUME 94 FL (80-99); MONOCYTES % (AUTO) 4.9 % (1.0-10.0); NEUTROPHILS % (AUTO) 68.6 % (45.0-75.0); PLATELET COUNT 247 K/UL (150-450); RED CELL DISTRIBUTION WIDTH 12.8 % (11.6-14.8); WHITE BLOOD COUNT 9.6 K/UL (4.8-10.8)
[2020-01-10 07:50] LABS: ANION GAP 10 mmol/L (5-15); BLOOD UREA NITROGEN 13 mg/dL (7-18); CALCIUM 9.1 MG/DL (8.5-10.1); CARBON DIOXIDE 27 MMOL/L (21-32); CHLORIDE 104 MMOL/L (98-107); CREATININE 1.2 MG/DL (0.55-1.30); POTASSIUM 4.1 MMOL/L (3.5-5.1); SODIUM 140 MMOL/L (136-145)
[2020-01-10 08:00] VITALS: BP 125/100
[2020-01-10] MEDS: Enoxaparin 40mg Inj SUBQ SCH (08:56)
--- NOTE | 2020-01-10 10:04 | Pulmonology Progress Note ---
Subjective ROS Limited/Unobtainable: No Interval Events: no further fevers Constitutional: Reports: no symptoms HEENT: Repors: no symptoms Respiratory: Reports: no symptoms Cardiovascular: Reports: no symptoms Gastrointestinal/Abdominal: Reports: no symptoms Genitourinary: Reports: no symptoms Psychiatric: Reports: no symptoms Skin: Reports: no symptoms Musculoskeletal: Reports: no symptoms Allergies: Coded Allergies: No Known Allergies (Unverified , 12/31/19) Objective Last 24 Hour Vital Signs Date Time Temp Pulse Resp B/P (MAP) Pulse Ox O2 Delivery O2 Flow Rate FiO2 01/10/20 08:55 86 125/100 01/10/20 08:00 96.8 86 19 125/100 (108) 91 01/10/20 04:00 98.1 80 22 125/60 (81) 91 01/10/20 00:00 98.8 72 20 152/90 (110) 94 01/09/20 21:00 Room Air 01/09/20 20:00 99.7 76 22 160/81 (107) 93 01/09/20 16:00 98.4 89 19 142/89 (106) 92 01/09/20 12:00 97.9 90 18 153/76 (101) 92 Intake and Output 01/09/20 01/10/20 19:00 07:00 Intake Total 1412.0 ml 580.0 ml Output Total 2 ml Balance 1412.0 ml 578.0 ml Intake Oral 1302 ml IV Total 110.0 ml 220.0 ml Other 360 ml Output Urine Total 2 ml # Voids 6 2 # Bowel Movements 3 General Appearance: no acute distress HEENT: normocephalic Respiratory: chest wall non-tender, lungs clear, normal breath sounds, no respiratory distress, decreased breath sounds Cardiovascular: normal peripheral pulses, normal rate, regular rhythm Abdomen: normal bowel sounds, soft, non tender Extremities: no cyanosis, no clubbing, no edema Musculoskeletal: normal muscle bulk Laboratory Tests 01/10/20 05:28: White Blood Count 9.6, Red Blood Count 3.70L, Hemoglobin 11.3L, Hematocrit 34.9L , Mean Corpuscular Volume 94, Mean Corpuscular Hemoglobin 30.6, Mean Corpuscular Hemoglobin Concent 32.4, Red Cell Distribution Width 12.8, Platelet Count 247, Mean Platelet Volume 7.1, Neutrophils (%) (Auto) 68.6, Lymphocytes (% ) (Auto) 23.7, Monocytes (%) (Auto) 4.9, Eosinophils (%) (Auto) 2.2, Basophils ( %) (Auto) 0.7, Sodium Level 140, Potassium Level 4.1, Chloride Level 104, Carbon Dioxide Level 27, Anion Gap 10, Blood Urea Nitrogen 13, Creatinine 1.2, Estimat Glomerular Filtration Rate 47.0, Glucose Level 89, Calcium Level 9.1 Current Medications Medications (Trade) Dose Ordered Sig/Jorge Alberto Route PRN Reason Start Time Stop Time Status Last Admin Dose Admin Acetaminophen (Tylenol) 650 mg Q4H PRN ORAL Mild Pain (Pain Scale 1-3) 01/03/20 13:00 01/31/20 12:59 01/06/20 09:50 Acetaminophen (Tylenol) 650 mg Q4H PRN ORAL Temp >100.5 01/03/20 13:00 02/01/20 12:59 Albuterol Sulfate (Proventil MDI) 2 puff Q4H PRN INH Shortness of Breath 01/03/20 13:00 03/31/20 12:59 01/05/20 21:55 Amlodipine Besylate (Norvasc) 5 mg DAILY ORAL 01/10/20 09:00 02/09/20 08:59 01/10/20 08:55 Enoxaparin Sodium (Lovenox) 40 mg EVERY 12 HOURS SUBQ 01/03/20 21:00 03/31/20 08:59 01/10/20 08:56 Ondansetron HCl (Zofran ODT) 4 mg Q4H PRN ORAL Nausea & Vomiting 01/03/20 22:45 02/02/20 22:44 Ondansetron HCl (Zofran) 4 mg EVERY 4 HOURS PRN IVP Nausea & Vomiting 01/03/20 23:00 02/02/20 22:44 01/04/20 11:26 Pantoprazole (Protonix) 40 mg DAILY ORAL 01/04/20 09:00 01/31/20 08:59 01/10/20 08:54 Piperacillin Sod/ Tazobactam Sod 3.375 gm/Sodium Chloride 110 ml @ 27.5 mls/hr Q8H IVPB 01/04/20 02:00 01/13/20 01:59 01/10/20 01:48 Sumatriptan Succinate (Imitrex) 25 mg DAILY PRN ORAL For Pain 01/04/20 21:45 02/03/20 21:44 01/05/20 10:19 Zolpidem Tartrate (Ambien) 5 mg HSPRN PRN ORAL Insomnia 01/03/20 21:00 01/10/20 20:59 01/05/20 21:36 Assessment/Plan Assessment/Plan ASSESSMENT AND PLAN: 1. Shortness of breath. Has multilobar pneumonia 2. Acute kidney injury. Improved 3. Fever noted PLAN Abx per ID Fluids Will follow O2; saturating well on RA Ross Shukla M.D., MD Jan 10, 2020 10:04
--- NOTE | 2020-01-10 10:39 | Nephrology Progress Note ---
Assessment/Plan Problem List: (1) CANDICE (acute kidney injury) (2) Dehydration (3) Pneumonia Plan January 09: Today's lab reviewed. Stable from renal standpoint of view. January 08: No labs drawn today. Stable from renal standpoint to view. Continue per consultants. January 07: Lab reviewed. Stable from renal standpoint of view January 06: No labs done today. Will check lab tomorrow. Stable from renal standpoint of view. January 05: Remains stable from renal standpoint of view. No labs done today. January 04: Stable from renal standpoint. Today's labs reviewed. Consultants notes reviewed. January 03: No can panel done today. Stable from renal standpoint of view. Check lab tomorrow. January 02: Patient remains stable from renal standpoint of view. Labs reviewed. White blood cells are down to 14,500. January 01: Patient clinically stable. No blood work done today. Will check on lab tomorrow. Previously: Serum creatinine is now normalized with hydration. White blood cell counts vipul, continue antibiotics per ID. Avoid nephrotoxic's, monitor renal parameters and electrolytes. Subjective ROS Limited/Unobtainable: No Constitutional: Reports: malaise Objective Objective Last 24 Hour Vital Signs Date Time Temp Pulse Resp B/P (MAP) Pulse Ox O2 Delivery O2 Flow Rate FiO2 01/10/20 08:55 86 125/100 01/10/20 08:00 96.8 86 19 125/100 (108) 91 01/10/20 04:00 98.1 80 22 125/60 (81) 91 01/10/20 00:00 98.8 72 20 152/90 (110) 94 01/09/20 21:00 Room Air 01/09/20 20:00 99.7 76 22 160/81 (107) 93 01/09/20 16:00 98.4 89 19 142/89 (106) 92 01/09/20 12:00 97.9 90 18 153/76 (101) 92 Intake and Output 01/09/20 01/10/20 19:00 07:00 Intake Total 1412.0 ml 580.0 ml Output Total 2 ml Balance 1412.0 ml 578.0 ml Intake Oral 1302 ml IV Total 110.0 ml 220.0 ml Other 360 ml Output Urine Total 2 ml # Voids 6 2 # Bowel Movements 3 Laboratory Tests 01/10/20 05:28: White Blood Count 9.6, Red Blood Count 3.70L, Hemoglobin 11.3L, Hematocrit 34.9L , Mean Corpuscular Volume 94, Mean Corpuscular Hemoglobin 30.6, Mean Corpuscular Hemoglobin Concent 32.4, Red Cell Distribution Width 12.8, Platelet Count 247, Mean Platelet Volume 7.1, Neutrophils (%) (Auto) 68.6, Lymphocytes (% ) (Auto) 23.7, Monocytes (%) (Auto) 4.9, Eosinophils (%) (Auto) 2.2, Basophils ( %) (Auto) 0.7, Sodium Level 140, Potassium Level 4.1, Chloride Level 104, Carbon Dioxide Level 27, Anion Gap 10, Blood Urea Nitrogen 13, Creatinine 1.2, Estimat Glomerular Filtration Rate 47.0, Glucose Level 89, Calcium Level 9.1 Height (Feet): 5 Height (Inches): 7.00 Weight (Pounds): 264 General Appearance: no apparent distress Objective No change Austin Perry MD Jan 10, 2020 10:39
[2020-01-10 12:00] VITALS: BP 148/82
[2020-01-10] MEDS ORDERED: PROAIR HFA8.5 GM INH (15:17)
[2020-01-10] MEDS ORDERED: AMLODIPINE BESYL5 MG ORAL (15:18)
[2020-01-10] MEDS ORDERED: AUGMENTIN 875-1 EAC1 ORAL (15:18)
--- NOTE | 2020-01-10 20:20 | Cardiology Progress Note ---
Assessment/Plan Assessment/Plan 1. Shortness of breath, due to multilobar pneumonia. Normal brain natriuretic peptide essentially ruled out acute congestive heart failure. COVID-19 infection is ruled out. 2. Sinus tachycardia, resolved. 3. Acute kidney injury, resolved. 4. HTN, stage II, optimize amlodipine. Subjective Subjective No cardiac events reported. Denies chest pain or SOB. Objective Last 24 Hour Vital Signs Date Time Temp Pulse Resp B/P (MAP) Pulse Ox O2 Delivery O2 Flow Rate FiO2 01/10/20 12:00 98.1 80 20 148/82 (104) 93 01/10/20 09:00 Room Air 2.0 01/10/20 08:55 86 125/100 01/10/20 08:00 96.8 86 19 125/100 (108) 91 01/10/20 04:00 98.1 80 22 125/60 (81) 91 01/10/20 00:00 98.8 72 20 152/90 (110) 94 01/09/20 21:00 Room Air Intake and Output 01/09/20 01/10/20 19:00 07:00 Intake Total 1412.0 ml 580.0 ml Output Total 2 ml Balance 1412.0 ml 578.0 ml Intake Oral 1302 ml IV Total 110.0 ml 220.0 ml Other 360 ml Output Urine Total 2 ml # Voids 6 2 # Bowel Movements 3 Laboratory Tests Test 01/10/20 05:28 White Blood Count 9.6 K/UL (4.8-10.8) Red Blood Count 3.70 M/UL (4.20-5.40) L Hemoglobin 11.3 G/DL (12.0-16.0) L Hematocrit 34.9 % (37.0-47.0) L Mean Corpuscular Volume 94 FL (80-99) Mean Corpuscular Hemoglobin 30.6 PG (27.0-31.0) Mean Corpuscular Hemoglobin Concent 32.4 G/DL (32.0-36.0) Red Cell Distribution Width 12.8 % (11.6-14.8) Platelet Count 247 K/UL (150-450) Mean Platelet Volume 7.1 FL (6.5-10.1) Neutrophils (%) (Auto) 68.6 % (45.0-75.0) Lymphocytes (%) (Auto) 23.7 % (20.0-45.0) Monocytes (%) (Auto) 4.9 % (1.0-10.0) Eosinophils (%) (Auto) 2.2 % (0.0-3.0) Basophils (%) (Auto) 0.7 % (0.0-2.0) Sodium Level 140 MMOL/L (136-145) Potassium Level 4.1 MMOL/L (3.5-5.1) Chloride Level 104 MMOL/L (98-107) Carbon Dioxide Level 27 MMOL/L (21-32) Anion Gap 10 mmol/L (5-15) Blood Urea Nitrogen 13 mg/dL (7-18) Creatinine 1.2 MG/DL (0.55-1.30) Estimat Glomerular Filtration Rate 47.0 mL/min (>60) Glucose Level 89 MG/DL (74-106) Calcium Level 9.1 MG/DL (8.5-10.1) Objective HEENT: Atraumatic and normocephalic. Anicteric. Pupils are equal, round, and reactive to light and accommodation. Extraocular muscles intact. NECK: No JVD, No carotid bruit, carotid upstroke 2+ B/L. CVS: Normal S1S2, regular rate and rhythm, no murmurs, gallops or rubs. ABDOMEN: Soft, nontender, nondistended. No hepatosplenomegaly. Positive bowel sounds. EXTREMITIES: No evidence of edema, clubbing, or cyanosis. Genaro Barrett MD Jan 10, 2020 20:20
--- NOTE | 2020-01-11 18:03 | Discharge Summary ---
Discharge Summary Discharge Summary _ DATE OF ADMISSION: 12/31/2019 DATE OF DISCHARGE: 01/10/2020 DISCHARGED BY: Dr Chan REASON FOR ADMISSION: 54 years old female with past medical history of hypertension, asthma, osteoarthritis, presented with difficulty breathing. Patient reported acute onset of symptoms. Patient reported prior history of smoking. upon evaluation patient was tachycardic with heart rate 114 and toxic saturating 75% on room air. No fevers. Laboratory work-up revealed leukocytosis. Stable hemoglobin and hematocrit. Stable electrolytes. BUN 25, creatinine 1.4. Lactic acid 1.3. Troponin negative, pro BNP 87. EKG revealed sinus tachycardia, no acute ischemic changes Urinalysis revealed no evidence of urinary tract infection . Urine toxicology was negative. Chest x-ray demonstrated hazy bibasilar airspace opacity ; possibility of multifocal pneumonia, including atypical/viral pneumonia was not excluded. Patient was swabbed for COVID-19, received empiric antibiotic and admitted for further management. CONSULTANTS: patient transport orderly Dr. Barrett pulmonary Dr. Burnett ID specialist Dr. Davis industrial economics teacher Dr. Perry HOSPITAL COURSE: Patient admitted to medical surgical floor and was kept in isolation. Supplemental oxygen provided and titrated to keep pulse oximetry above 92%, pulmonary toilet provided. SARS COV 2 by PCR 12/30 and 12/31 was not detected. Isolation discontinued. Antibiotic provided as per ID specialist recommendation Blood culture initial and repeated were both negative. Patient was treated empirically for multilobar pneumonia, suspected aspiration , related to vomiting . ID specialist recommended total course of 10 to 14 days. Antibiotic changed to oral upon discharge to complete the course. Patient was on IV hydration with close monitoring of volumes and renal parameters. Electrolytes corrected as needed. Acute kidney injury was most likely due to dehydration. BUN from 25 down to 13 and creatinine from 1.4 down to 1.2. Acute kidney injury resolved. DVT and GI prophylaxis provided. Supportive care provided. Patient clinically stabilized and was ready for discharge home. in 1 week. FINAL DIAGNOSES: Sepsis secondary to pneumonia Multilobar pneumonia Suspected COVID-19 infection -ruled out Hypoxia Acute kidney injury-resolved COPD/asthma Dehydration DISCHARGE MEDICATIONS: See Medication Reconciliation list. DISCHARGE INSTRUCTIONS: Patient was discharged home. Follow-up with the primary care provider in 1 week. I have been assigned to dictate discharge summary for this account. I was not involved in the patient's management. Shirin Britton NP Jan 11, 2020 18:03
== END 2020-01-10 16:25 | disposition home or self-care (01) | DRG 720 ==
LOC: EMR 16:00 → 2E 18:00 → EDBEDREQ 20:23 → 4E 01-03 12:27
DX: A41.9 Sepsis, unspecified organism (principal); N17.9 Acute kidney failure, unspecified; E05.90 Thyrotoxicosis, unspecified without thyrotoxic crisis or storm; J44.9 Chronic obstructive pulmonary disease, unspecified; E86.0 Dehydration; R09.02 Hypoxemia; J18.1 Lobar pneumonia, unspecified organism; I10 Essential (primary) hypertension; J90 Pleural effusion, not elsewhere classified; Z20.828 Contact with and (suspected) exposure to other viral communicable diseases
CPT/HCPCS: 36415; 71045; 80048; 80053; 80061; 80202; 80307; 81003; 82550; 83605; 83735; 83880; 84100; 84443; 84484; 84550; 85007; 85025; 85379; 85384; 85730; 86140; 87040; 93005; 96361; 96365; 96375; 99285; J2405; J7030